=== PATIENT | male | born 1995 | race Caucasian/White ===

== ENCOUNTER 2023-02-23 09:51 | Outpatient (OUT) | payer OTHER, SELFPAY ==
--- NOTE | 2023-02-23 | VEIN_ITS ---
Patient: EARL LUND Exam Date: 02/23/2023 : 1995 Gender:M Ordering : DR GURDEEP AKINS M.D. Admission #: [id number] Family : Order #: [id number] CLICK HERE TO VIEW EXAM RADIOLOGY REPORT PROCEDURE: [facility] EST L[facility]D VEIN CENTER - OFFICE VISIT FOLLOW UP COMPARISON: [facility] COMP CONSULTATION, 11/24/2022. VC VENOUS REFLUX RICHARD LMT, 11/24/2022. PROGRESS NOTES: Patient returns for re-evaluation after wearing bilateral compression stockings for 3 months. Patient describes persistent symptoms as before, but with some relief while wearing compression stockings. Physical exam demonstrates persistent lower extremity edema and swelling. The patient expressed a desire to proceed with treatment of abnormally dilated and incompetent right and left great saphenous veins and branch saphenous varicosities. The patient was informed that treatment was a process and would require approximately 4 -5 procedures/sessions. VEIN/[facility] Facility EST LMTD IMPRESSION: 1. Abnormally dilated and incompetent great saphenous veins bilaterally with associated incompetent branch saphenous varicosities. 2. Persistent bilateral lower extremity symptoms. PLAN: 1. Endovenous laser ablation of right and left great saphenous veins. 2. Microfoam chemical ablation of incompetent branch saphenous varicosities. Nurse notes, history and physical were reviewed and confirmed, see attached forms. The nurse was present throughout the physical exam and consultation Dictated by: Pablo Flores M.D. on 02/23/2023 at 10:35 Approved by: Pablo Flores M.D. on 02/23/2023 at 10:40
== END 2023-02-23 09:52 | disposition home or self-care (01) ==
LOC: VC 09:51
PROVIDERS: PCP Radiology Diagnostic Radiology; Visit Provider Radiology Diagnostic Radiology
DX: I83.813 Varicose veins of bilateral lower extremities with pain (principal)
CPT/HCPCS: G0463

== ENCOUNTER 2023-03-23 10:23 | Outpatient (OUT) | payer OTHER, SELFPAY ==
--- NOTE | 2023-03-23 10:30 | VEIN_ITS ---
[address] [address] Patient Name: EARL LUND MRN: [id number] date: 1995 Sex: M Assigned Patient Location: Current Patient Location: Accession/Order Number: [id number] Exam Date: 03/23/2023 10:35 Report Date: 03/23/2023 11:50 At the request of: GURDEEP AKINS Procedure: VC Endovenous Ablation 1VeinRT EXAMINATION: VC Endovenous Ablation 1VeinRT HISTORY: Pain due to varicose veins of bilateral legs I83.813 The risks and benefits of the procedure had been previously discussed, and were rediscussed at length. Informed written consent was obtained. Adriano Michael RN and Felicity Fagan RDMS, RVT assisted. Time out procedure was performed. The right lower extremity was prepared and draped in the usual sterile fashion to allow knee flexion in the sterile field. Duplex ultrasound probe was draped in a sterile cover, sterile transmission gel was used. Venous mapping was performed with the areas of dilation and large tributaries marked. The total length was 62 cm from the entry 3 cm above the ankle joint to 3 cm below the Saphenofemoral junction. The diameter of the great saphenous vein ranged from 8.8 mm. A 30 gauge needle and 1% buffered lidocaine was used to anesthetize the entry site. A 4 mm incision was made with a scalpel and the saphenous vein was entered percutaneously under direct ultrasound guidance with a micropuncture set, a single stick was successful in gaining access. A micro-guide wire was inserted and the needle removed. A micro-set including a dilator was inserted over the microwire and the needle and dilator were removed. A guide wire was inserted through the micro-set and guided through the saphenous vein to the saphenofemoral junction. The dilator was removed and an introducer sheath was inserted over the wire until the end of the sheath entered the saphenofemoral junction. The dilator and wire were removed and the 600 micron fiber was introduced and placed and positioned so that it extended beyond the sheath and was 3 cm distal to the saphenofemoral or saphenopopliteal junction. Final position of the fiber was determined by ultrasound guidance and duplex imaging. Tumescent anesthetic was delivered by ultrasound guidance. 3 and 75 cc of fluid was delivered along the entire course of the saphenous vein. The solution consisted of 1000 cc of normal saline with 40 mL of 1% lidocaine and 20 mL of sodium bicarbonate. A final positioning check was made. The energy source was turned on by means of the foot pedal and the fiber and sheath were withdrawn. The total number of Joules delivered was 3183. The laser was active for 398 seconds under continuous pulse, average laser use of 8 J. Laser start time 11:33 AM, 03/23/2023. Laser stop time 11:43 AM, 03/23/2023. A duplex ultrasound revealed compressibility and flow at the saphenofemoral junction immediately after the procedure. Hemostasis at the access site was achieved. The skin incision of the saphenous vein was closed with a 4 x 4. A compression stocking was applied. Postop instructions were given. A follow up appointment was recommended and scheduled. The patient tolerated the procedure well. Electronically authenticated by: ERMIAS ARCHER Date: 03/23/2023 11:50
[2023-03-23] MEDS: 0.9 % SODIUM CHLORIDE 500 ML, LIDOCAINE HCL 20 ML, SODIUM BICARBONATE 10 MEQ INJ (11:12)
== END 2023-03-23 10:24 | disposition home or self-care (01) ==
LOC: VC 10:24
PROVIDERS: PCP Radiology Diagnostic Radiology; Visit Provider Radiology Diagnostic Radiology
DX: I83.813 Varicose veins of bilateral lower extremities with pain (principal)
CPT/HCPCS: 36478

== ENCOUNTER 2023-03-29 14:46 | Outpatient (OUT) | payer OTHER, SELFPAY ==
--- NOTE | 2023-03-29 | VEIN_ITS ---
Patient: EARL LUND Exam Date: 03/29/2023 : 1995 Gender:M Ordering : DR GURDEEP AKINS M.D. Admission #: [id number] Family : Order #: [id number] CLICK HERE TO VIEW EXAM RADIOLOGY REPORT PROCEDURE: VC EXT VENOUS RT LMTD COMPARISON: None. INDICATIONS: Phlebitis of superficial veins of rt lower extremity I80.01 TECHNIQUE: Lower extremity oneil scale and Duplex Doppler evaluation of the deep venous system from the inguinal ligament through the calf veins. FINDINGS: REGION: Right lower extremity. THROMBI: Negative for DVT. Heat induced thrombus in right GSV 3.2 cm from SFJ and extends to distal lower leg. COMPRESSIBILITY: Non-compressible segments. FLOW: Areas of no flow. OTHER: CONCLUSION: 1. Successful post ablation occlusion of right great saphenous vein. Dictated by: Pablo Flores M.D. on 03/30/2023 at 08:09 Approved by: Pablo Flores M.D. on 03/30/2023 at 08:10
--- NOTE | 2023-03-29 | VEIN_ITS ---
Patient: EARL LUND Exam Date: 03/29/2023 : 1995 Gender:M Ordering : DR GURDEEP AKINS M.D. Admission #: [id number] Family : Order #: [id number] CLICK HERE TO VIEW EXAM RADIOLOGY REPORT PROCEDURE: [facility] EST LMTD VEIN CENTER - OFFICE VISIT FOLLOW UP COMPARISON: [facility], 02/23/2023. PROGRESS NOTES: The patient reports improvement in leg symptoms. There has been interval reduction in varicosities. The patient has followed our recommendations to walk 20-30 minutes once or twice per day since the procedure. Physical exam demonstrates decrease in varicosities of the leg. Persistent varicosities are identified along the legs bilaterally. Review of the ultrasound performed the same day demonstrates occlusive thrombus extending throughout the treated vein(s), see separate report, consistent with a successful ablation. No thrombus extending into or beyond the saphenofemoral junction. The patient expressed a desire to proceed with treatment of remaining incompetent varicosities. The patient was informed that treatment was a process and would require several procedures/sessions. VEIN/[facility] EST TD IMPRESSION: 1. Successful ablation of the right great saphenous vein(s). 2. Persistent incompetent varicose veins and bilateral lower extremity symptoms. PLAN: Endovenous laser ablation of left great saphenous vein. Nurse notes, history and physical were reviewed and confirmed, see attached forms. The nurse was present throughout the physical exam and consultation Dictated by: Pablo Flores M.D. on 03/30/2023 at 08:10 Approved by: Pablo Flores M.D. on 03/30/2023 at 08:11
== END 2023-03-29 14:47 | disposition home or self-care (01) ==
LOC: VC 14:46
PROVIDERS: PCP Radiology Diagnostic Radiology; Visit Provider Radiology Diagnostic Radiology
DX: I80.01 Phlebitis and thrombophlebitis of superficial vessels of right lower extremity (principal)
CPT/HCPCS: 93971; G0463

== ENCOUNTER 2023-04-20 13:27 | Outpatient (OUT) | payer OTHER, SELFPAY ==
--- NOTE | 2023-04-20 13:28 | VEIN_ITS ---
[address] [address] Patient Name: EARL LUND MRN: [id number] date: 1995 Sex: M Assigned Patient Location: Current Patient Location: Accession/Order Number: [id number] Exam Date: 04/20/2023 13:28 Report Date: 04/20/2023 14:48 At the request of: GURDEEP AKINS Procedure: VC Endovenous Ablation 1VeinLT EXAMINATION: VC Endovenous Ablation 1VeinLT HISTORY: I83.813 Painful varicose veins of bilat lower extremities The risks and benefits of the procedure had been previously discussed, and were rediscussed at length. Informed written consent was obtained. Chelsi Owens RN and Felicity Fagan RDMS, RVT assisted. Time out procedure was performed. The left lower extremity was prepared and draped in the usual sterile fashion to allow knee flexion in the sterile field. Duplex ultrasound probe was draped in a sterile cover, sterile transmission gel was used. Venous mapping was performed with the areas of dilation and large tributaries marked. The total length was 64 cm from the entry 3 cm above the ankle to 3 cm below the Saphenofemoral junction. The diameter of the left great saphenous vein ranged from 6.8 mm. A 30 gauge needle and 1% buffered lidocaine was used to anesthetize the entry site. A 4 mm incision was made with a scalpel and the saphenous vein was entered percutaneously under direct ultrasound guidance with a micropuncture set, a single stick was successful in gaining access. A micro-guide wire was inserted and the needle removed. A micro-set including a dilator was inserted over the microwire and the needle and dilator were removed. A guide wire was inserted through the micro-set and guided through the saphenous vein to the saphenofemoral junction. The dilator was removed and an introducer sheath was inserted over the wire until the end of the sheath entered the saphenofemoral junction. The dilator and wire were removed and the 600 micron fiber was introduced and placed and positioned so that it extended beyond the sheath and was 3 cm distal to the saphenofemoral or saphenopopliteal junction. Final position of the fiber was determined by ultrasound guidance and duplex imaging. Tumescent anesthetic was delivered by ultrasound guidance. 350 cc of fluid was delivered along the entire course of the saphenous vein. The solution consisted of 1000 cc of normal saline with 40 mL of 1% lidocaine and 20 mL of sodium bicarbonate. A final positioning check was made. The energy source was turned on by means of the foot pedal and the fiber and sheath were withdrawn. The total number of Joules delivered was 3188. The laser was active for 399 seconds under continuous pulse, average laser use of 8 J. Laser start time 2:11 PM, 04/20/2023. Laser stop time 2:21 PM, 04/20/2023. A duplex ultrasound revealed compressibility and flow at the saphenofemoral junction immediately after the procedure. Hemostasis at the access site was achieved. The skin incision of the saphenous vein was closed with a 4 x 4. A compression stocking was applied. Postop instructions were given. A follow up appointment was recommended and scheduled. The patient tolerated the procedure well. Electronically authenticated by: ERMIAS ARCHER Date: 04/20/2023 14:48
[2023-04-20] MEDS: LIDOCAINE HCL 1% 100 MG/10 ML MDV INJ (13:52)
[2023-04-20] MEDS: 0.9 % SODIUM CHLORIDE 500 ML, LIDOCAINE HCL 20 ML, SODIUM BICARBONATE 10 MEQ INJ (13:54)
== END 2023-04-20 13:28 | disposition home or self-care (01) ==
LOC: VC 13:27
PROVIDERS: PCP Radiology Diagnostic Radiology; Visit Provider Radiology Diagnostic Radiology
DX: I83.813 Varicose veins of bilateral lower extremities with pain (principal)
CPT/HCPCS: 36478

== ENCOUNTER 2023-04-27 11:20 | Outpatient (OUT) | payer OTHER, SELFPAY ==
--- NOTE | 2023-04-27 11:28 | VEIN_ITS ---
Patient: EARL LUND Exam Date: 04/27/2023 : 1995 Gender:M Ordering : DR MAICOL LOPEZ M.D. Admission #: [id number] Family : Order #: [id number] CLICK HERE TO VIEW EXAM RADIOLOGY REPORT PROCEDURE: VC EXT VENOUS LT LIMITED COMPARISON: None. INDICATIONS: I80.02 Phlebitis of superficial veins of lt lower extremity TECHNIQUE: Lower extremity oneil scale and Duplex Doppler evaluation of the deep venous system from the inguinal ligament through the calf veins. FINDINGS: REGION: Left lower extremity. THROMBI: Negative for DVT. Heat induced thrombus visualized 4.2 cm from the SFJ. The heat induced thrombus extends from groin to distal calf. COMPRESSIBILITY: Non-compressible segments. FLOW: Absent flow corresponding to thrombus CONCLUSION: Post ablation occlusion left great saphenous vein with heat induced thrombus 4.2 cm from the saphenofemoral junction Dictated by: Maicol Lopez MD on 04/27/2023 at 11:48 Approved by: Maicol Lopez MD on 04/27/2023 at 11:49
--- NOTE | 2023-04-27 11:28 | VEIN_ITS ---
Patient: EARL LUND Exam Date: 04/27/2023 : 1995 Gender:M Ordering : DR MAICOL LOPEZ M.D. Admission #: [id number] Family : Order #: [id number] CLICK HERE TO VIEW EXAM RADIOLOGY REPORT PROCEDURE: FACILITY EST LMTD VEIN CENTER - OFFICE VISIT FOLLOW UP COMPARISON: FACILITY EST LMTD, 03/29/2023. FACILITY EST LMTD, 02/23/2023. PROGRESS NOTES: The patient reports no significant problems following intravenous laser ablation of the left great saphenous vein. The patient did not require oral analgesics for the patient has worn compression stockings. Physical exam demonstrates no areas of erythema or warmth to suggest cellulitis or thrombophlebitis. No active ulceration. The incision is closed. Extensive hemosiderin staining varicose reticular veins, left greater than right remain. Review of the ultrasound performed the same day demonstrates occlusive thrombus extending throughout the treated left great saphenous vein with heat induced thrombus 4.2 cm from the saphenofemoral junction. The patient expressed a desire to proceed with treatment of incompetent varicose veins with micro foam chemical ablation VEIN/ Facility EST LMTD IMPRESSION: 1. Successful ablation of the left great saphenous vein 2. Persistent bilateral incompetent varicose veins. PLAN: Micro foam chemical ablation left leg incompetent varicose veins Nurse notes, history and physical were reviewed and confirmed, see attached forms. The nurse was present throughout the physical exam and consultation Dictated by: Maicol Lopez MD on 04/27/2023 at 12:21 Approved by: Maicol Lopez MD on 04/27/2023 at 12:22
== END 2023-04-27 11:21 | disposition home or self-care (01) ==
LOC: VC 11:20
PROVIDERS: PCP Radiology Diagnostic Radiology; Visit Provider Radiology Diagnostic Radiology
DX: I80.02 Phlebitis and thrombophlebitis of superficial vessels of left lower extremity (principal)
CPT/HCPCS: 93971; G0463

== ENCOUNTER 2023-05-10 13:25 | Outpatient (OUT) | payer OTHER, SELFPAY ==
--- NOTE | 2023-05-10 | VEIN_ITS ---
[address] [address] Patient Name: EARL LUND MRN: [id number] date: 1995 Sex: M Assigned Patient Location: Current Patient Location: Accession/Order Number: [id number] Exam Date: 05/10/2023 13:34 Report Date: 05/10/2023 14:59 At the request of: GURDEEP AKINS Procedure: VC INJ Foam Sclerosant WUS DRY KILN WORKER PROCEDURE: VC INJ Foam Sclerosant WUS DRY KILN WORKER COMPARISON: None. HISTORY: Pain due to varicose veins of bilateral legs I83.813 Pre-operative Diagnosis: CEAP class C4a venous insufficiency with pain, tenderness, edema and incompetent great saphenous and varicose vein(s), chronic venous insufficiency right leg secondary to venous incompetence Post-operative Diagnosis: CEAP class C4a venous insufficiency with pain, tenderness, edema and incompetent great saphenous and varicose vein(s), chronic venous insufficiency right leg secondary to venous incompetence Procedure Performed: 1. Ultrasound-guided microfoam chemical ablation with Varithenaregistered 2. Intraoperative ultrasound guidance Anesthesia: None Indications for Procedure: 28-year-old male who presents with a 2 year history of liver centrally pain swelling with hemosiderin staining. The patient failed conservative medical therapy including medical compression stockings, exercise and analgesics. Prior procedures include . Multiple incompetent varicosities of the right leg. Duplex scan showed reflux and enlarged diameters up to 6 mm. The patient underwent informed consent including management options where the complications of infection, bleeding, pain, and skin injury were discussed. Particular attention was spent discussing thrombus extension and deep vein thrombosis as well as the possibility of pulmonary embolus and treatment with oral or injectable blood thinners. Procedure: The patient walked to the procedure room. All applicable staff donned appropriate apparel. A procedure timeout was performed to confirm correct patient, correct extremity, correct procedure, and correct room set-up including presence of all applicable supplies, devices, and drugs. A duplex ultrasound, performed by myself confirmed the location and incompetence of branch saphenous varicosities and their course was marked on the skin together with the dilated tributaries. The extent of treatment of the vein and the associated varicosities was determined through ultrasound mapping. The skin was prepped and then punctured with a butterfly needle and advanced under ultrasound guidance. The Varithenaregistered canister was activated and the canister was primed and purged as required in the instructions for use. Varithenaregistered was drawn into a sterile syringe. The following injections were made: 7 cc right distal medial lower leg, 4 mm varicose vein 8 cc distal right medial thigh, 6 mm varicose vein Varithenaregistered was slowly administered at 0.5-1.0 cc/second with close observation by ultrasound of its course in the vessels. Total volume utilized was: 15cc. Following administration of Varithenaregistered the leg was elevated and the patient was asked to repeatedly dorsiflex the ankle to limit flow of Varithenaregistered into perforating veins. Once appropriate spasm had been confirmed in the treated veins, the vascular catheter was removed from the leg and light pressure was applied over the puncture site for hemostasis. The common femoral and deep superficial veins were then evaluated for flow and compressibility prior to dressing placement. The lower extremity was kept elevated at 45 degrees above the horizontal and cording material was applied over the saphenous segments and tributaries to allow for eccentric compression over the target vessels including the targeted saphenous vein(s). A multilayer dressing was applied consisting of foam pads, coban and thigh-high 20-30 mm Hg compression elastic support hose were placed on the patient. The leg was lowered only after compression had been applied and the patient was immediately ambulatory. The patient ambulated 10 minutes under supervision and was without apparent concerns at time of release. Post-care instructions include advising patient to keep post-treatment bandages in place and dry for 48 hours, avoid extended periods of inactivity, avoid heavy exercise for one week, wear compression stockings on the treated leg continuously for two weeks, to walk daily for 10 minutes over the next month. The patient was instructed to take an anti-inflammatory medicine as needed and to follow up for color duplex scan of the Saphenous veins, the treated branch saphenous varicosities, the adjacent deep veins, and additional treatment within 7 days. PERSONNEL: Adriano Michael RN Electronically authenticated by: GURDEEP AKINS Date: 05/10/2023 14:59
== END 2023-05-10 13:26 | disposition home or self-care (01) ==
LOC: VC 13:25
PROVIDERS: PCP Radiology Diagnostic Radiology; Visit Provider Radiology Diagnostic Radiology
DX: I83.813 Varicose veins of bilateral lower extremities with pain (principal)
CPT/HCPCS: 36466

== ENCOUNTER 2023-05-17 13:16 | Outpatient (OUT) | payer OTHER, SELFPAY ==
--- NOTE | 2023-05-17 13:17 | VEIN_ITS ---
Patient Name EARL LUND MR# Age Sex Date Time [id number] 28 M 05/17/2023 13:17 At the Request Of DR GURDEEP AKINS M.D. RADIOLOGY REPORT PROCEDURE: [facility] EST LMTD VEIN CENTER - OFFICE VISIT FOLLOW UP COMPARISON: [facility] EST TD, 04/27/2023. PROGRESS NOTES: The patient reports improvement in leg symptoms. There has been interval reduction in varicosities. The patient has followed our recommendations to walk 20-30 minutes once or twice per day since the procedure. Physical exam demonstrates decrease in varicosities of the leg. Persistent varicosities are identified along the legs. Review of the ultrasound performed the same day demonstrates occlusive thrombus extending throughout the treated vein(s), see separate report, consistent with a successful ablation. No thrombus extending into or beyond the saphenofemoral junction. The patient expressed a desire to proceed with treatment of remaining incompetent varicosities. The patient was informed that treatment was a process and would require several procedures/sessions. VEIN/[facility] EST TD IMPRESSION: 1. Successful ablation of the treated branch saphenous vein(s). 2. Persistent incompetent varicose veins and lower extremity symptoms. PLAN: Microfoam chemical ablation of left leg incompetent branch saphenous varicosities. Nurse notes, history and physical were reviewed and confirmed, see attached forms. The nurse was present throughout the physical exam and consultation Dictated by: Pablo Flores M.D. on 05/17/2023 at 14:26 Approved by: Pablo Flores M.D. on 05/17/2023 at 14:28
--- NOTE | 2023-05-17 13:17 | VEIN_ITS ---
Patient Name EARL LUND MR# Age Sex Date Time [id number] 28 M 05/17/2023 13:28 At the Request Of DR GURDEEP AKINS M.D. RADIOLOGY REPORT PROCEDURE: VC EXT VENOUS RT LMTD COMPARISON: VC EXT VENOUS RT LMTD, 03/29/2023. INDICATIONS: Phlebitis of superficial veins of rt lower extremity I80.01 TECHNIQUE: Lower extremity oneil scale and Duplex Doppler evaluation of the deep venous system from the inguinal ligament through the calf veins. FINDINGS: REGION: Right lower extremity. THROMBI: Negative for DVT. All areas treated with Varithena/microfoam are seen with echogenic thrombus corresponding to the treatment. COMPRESSIBILITY: Non-compressible segments corresponding to thrombus FLOW: Areas of no flow corresponding to thrombus OTHER: Patent varicose vein visualized on proximal post/med lower leg and measures 4.9 mm with 2.6s of reflux. Patent varicose vein is visualized on the proximal anterior lower leg measures 4.6 mm with 2.1 s of reflux. CONCLUSION: 1. Successful ablation of treated right leg branch saphenous varicosities. Dictated by: Pablo Flores M.D. on 05/17/2023 at 13:50 Approved by: Pablo Flores M.D. on 05/17/2023 at 14:15
--- OUTSIDE RECORDS SUMMARY | 2023-06-27 15:11 | XMS_ITS | CCD ---
Author Name Unknown Address [address] [place] [address] Organization [facility] Care Team Providers Care Gravity Flow Irrigator Name Role Phone JOJO BAKER Unavailable Unavailable ADLESO HALEY Unavailable Unavailable Mdaeline Muñoz Unavailable Lanre LAWRENCE Primary Care Physician Lanre LAWRENCE Attending Unavailable Lanre LAWRENCE Attending Unavailable Lanre LAWRENCE Attending Unavailable PRABHU, DR THIBODEAUX LISTED Primary Care Unavaila ble MIKE, DR HERNANDEZ Vaz Attending Unavailable MIKE, DR HERNANDEZ Vaz Admitting Unavailable REINECK, DR LAM Karimi Attending Unavailabl e REINECK, DR LAM Karimi Consulting Unavailabl e REINECK, DR LAM Karimi Admitting Unavailabl e REQUEST, DR THIBODEAUX LISTED Primary Care Unavaila ble Allergies Allergy Classification Reported Allergen(s) Allergy Type Date of Onset Reaction(s) Facility (2 sources) Bee/Wasp/Ant venom; Translations: [Bee Stings] Allergy to substance Swelling (finding) [facility] (1 source) No Known Medication Allergies; Translations: [No Known Medication Allergies] Propensity to adverse reactions (disorder) [facility] Repository NEGATED: Highlighted row has been ruled out! (1 source) Drug allergy [facility] Medications Current Medications Medication Drug Class(es) Dates Sig (Normalized) Sig (Original) albuterol 0.83 mg/ml inhalation solution (3 sources) beta2-Adrenergic Agonist Start: 12-15-2021 take 2.5 mg by inhalation every six hours for wheezing albuterol 0.083% Inh Mabel 3 mL 2.5 mg, 3 mL, Inhalation, q6hr for wheezing, 100 EA, Refill(s) 2, [facility]/pharmacy #[id number], 180, cm, 08/04/21 13:28:00 EST, Height/Length Dosing, 182.9, kg, 08/04/21 13:28:00 EST, Weight Dosing Start Date: 12/15/21 Status: Ordered Start: 03-04-2017 take 2 puff(s) by in halation every four hours as needed Ventolin HFA 108 (90 Base) MCG/ACT 2 puffs as needed Inhalation every 4 hrs for 30 days Feb, Active Ventolin HFA Act casey Full Kit Nebulizer Set - (2 sources) Start: 03-14-2017 Full Kit Nebul izer Set - as directed Mar, Active Start: 03-04-2017 Full Kit Nebul izer Set - as directed Feb, Active furosemide 20 mg oral tablet (1 source) Loop Diuretic Start: 12-15-2021 take 1 tablet by mouth once daily as needed furosemide 20 mg Tab 20 mg = 1 tab(s), Oral, Daily, PRN leg swelling, # 30 tab(s), Refills(s) 2, Pharmacy: [facility]/pharmacy #[id number], 180, cm, 08/04/21 13:28:00 EST, Height/Length Dosing, 182.9, kg, 08/04/21 13:28:00 EST, Weight Dosing Start Date: 12/15/21 Status: Ordered montelukast 10 mg oral tablet (1 source) Leukotriene Receptor Antagonist Start: 03-04-2017 take 1 tablet by mouth every twenty-four hours Singulair 10 MG 1 tablet in the evening Orally Once a day for 30 day(s) Feb, Active Nebulizer (1 source) Nebulizer Active pantoprazole 40 mg delayed release oral tablet (1 source) Proton Pump Inhibitor Start: 08-04-2021 take 1 tablet by mouth twice daily Protonix 40 mg Tab-DR 40 mg = 1 tab(s), Oral, BID, # 60 tab(s), Refills(s) 11, Pharmacy: [facility]/pharmacy #[id number], 180, cm, 08/04/21 13:28:00 EST, Height/Length Dosing, 182.9, kg, 08/04/21 13:28:00 EST, Weight Dosing Start Date: 08/04/21 Status: Ordered predniSONE 20 mg oral tablet (1 source) Start: 03-04-2017 predniSONE 20 MG 1 tablet TID x 2 days, 1 tablet BID x 2 days, 1 tablet daily x 2 days, 1/2 tablet x 2 days, then stop Orally as directed for 8 days Feb, Active Completed/Discontinued Medications Medication Drug Class(es) Dates Sig (Normalized) Sig (Original) albuterol HFA 90 mcg/inh MDI (1 source) Start: 08-04-2021 take 1 dose by inhalation four times daily albuterol HFA 90 mcg/inh MDI 2 puff(s), Inhalation, QID, 1 EA, Refill(s) 11, [facility]/pharmacy #[id number], 180, cm, 08/04/21 13:28:00 EST, Height/Length Dosing, 182.9, kg, 08/04/21 13:28:00 EST, Weight Dosing Start Date: 08/04/21 Status: Ordered Breo Ellipta 200 mcg-25 mcg/inh inhalation powder (1 source) Start: 02-01-2022 take 1 dose by inhalation once daily Breo Ellipta 200 mcg-25 mcg/inh inhalation powder 1 puff(s), Inhalation, Daily, 1 EA, Refill(s) 11, [facility]/pharmacy #[id number], 180, cm, 02/01/22 11:53:00 EDT, Height/Length Dosing, 170.9, kg, 02/01/22 11:53:00 EDT, Weight Dosing Start Date: 02/01/22 Status: Ordered ipratropium bromide 0.2 mg/ml inhalation solution (1 source) Anticholinergic Start: 08-04-2021 take 100 doses by inhalation four times daily ipratropium 0.02% Inh Mabel 2.5 mL 500 microgram, 2.5 mL, Inhalation, QID Shortness of breath or wheezing, 100 EA, Refill(s) 11, [facility]/pharmacy #[id number], 180, cm, 08/04/21 13:28:00 EST, Height/Length Dosing, 182.9, kg, 08/04/21 13:28:00 EST, Weight Dosing Start Date: 08/04/21 Status: Ordered potassium chloride 10 meq extended release oral capsule (1 source) Start: 12-15-2021 take 1 capsule by mouth once daily as needed potassium chloride 10 mEq Cap-ER 10 mEq = 1 cap(s), Oral, Daily, PRN leg swelling, use when taking furosemide, # 30 cap(s), Refills(s) 5, Pharmacy: [facility]/pharmacy #[id number], 180, cm, 08/04/21 13:28:00 EST, Height/Length Dosing, 182.9, kg, 08/04/21 13:28:00 EST, Weight Dosing Start Date: 12/15/21 Status: Ordered Problems Active Problems Problem Classification Problem Date Documented Date Episodic/Chronic Asthma (3 sources) Exacerbation of asthma; Translations: [Unspecified asthma with (acute) exacerbation] Onset: 02-01-2022 Chronic Diabetes mellitus without complication (1 source) Type 2 diabetes mellitus without complications; Translations: [TYPE 2 DM WITHOUT COMPLICATIONS] Onset: 09-29-2022 Chronic Mycoses (1 source) Other urogenital candidiasis; Translations: [OTHER UROGENITAL CANDIDIASIS] Onset: 09-29-2022 Episodic Other circulatory disease (1 source) Elevated blood-pressure reading without diagnosis of hypertension 12-18-2019 Episodic Other diseases of veins and lymphatics (1 source) Venous insufficiency of leg 03-18-2020 Episodic Other male genital disorders (3 sources) Other specified disorders of penis; Translations: [OTHER SPECIFIED DISORDERS OF PENIS] Onset: 09-28-2022 Chronic Other nutritional; endocrine; and metabolic disorders (2 sources) Morbid obesity 03-18-2020 Chronic Other nutritional; endocrine; and metabolic disorders (1 source) Obesity 07-27-2018 Chronic Other nutritional; endocrine; and metabolic disorders (1 source) Obesity, unspecified; Translations: [OBESITY UNSPECIFIED] Onset: 09-29-2022 Chronic Other nutritional; endocrine; and metabolic disorders (1 source) Body mass index (BMI) 50.0-59.9, adult; Translations: [BODY MASS INDEX BMI 50.0-59.9 ADULT] Onset: 09-29-2022 Chronic Pneumonia (except that caused by tuberculosis or sexually transmitted disease) (1 source) Pneumonia 07-27-2018 Episodic Residual codes; unclassified (1 source) Tobacco user 12-18-2019 Episodic Spondylosis; intervertebral disc disorders; other back problems (1 source) Backache 07-27-2018 Episodic Sprains and strains (1 source) Strain of muscle, fascia and tendon of lower back, initial encounter; Translations: [Strain of muscle, fascia and tendon of lower back, initial encounter] Onset: 07-06-2018 Episodic Substance-related disorders (1 source) Nicotine dependence 02-03-2021 Chronic Varicose veins of lower extremity (2 sources) Varicose veins of lower extremity; Translations: [Varicose veins of left lower extremity with other complications] Onset: 02-01-2022 Episodic Past or Other Problems Problem Classification Problem Date Documented Da te Episodic/Chronic Immunizations and screening for infectious disease (1 source) Contact with and (suspected) exposure to other viral communicable diseases Onset: 06-24-2021 Resolved: 06-24-2021 Episodic Results Test Name Value Interpretation Reference Range Facil ity HERPES SIMPLEX VIRUS (HSV) C ULTUREon 10-01-2022 HSV Culture/Type Comment Normal [facility] Comment on above: Result Comment: Nega tive No Herpes simplex virus isolated. Performed By: #### H SVCUL #### [facility] [address] [place] [address] Dr. Gilberto Valle POINT OF CARE GLUCOSEon 09-08 Glucose [Mass/Vol] 276 mg/dL Critically high 74-106 T [facility] Comment on above: Performed By: #### P OCGLUC #### [facility] [address] [place] [address] Dr. Gilberto Valle Provider Letteron 06-27-2022 Provider Letter (Inserted Image. Karen ble to display) June 27, 2022 EARL SHAFFER [address] [place] [address] Dear Earl, We have been trying to reach you with no success. You should have received a letter previously stating Lanre Lawrence will no longer be at the [place] office location starting July 10. Please contact our office to get your appointment rescheduled at your earliest convenience. At this time, you don't have any appointments scheduled. Thank you for your prompt attention to this matter. Sincerely, [facility] [place] [address] [place] [place] [id number] [facility] Family Medicine Office/Clini c Noteon 02-01-2022 Family Medicine Office/Clinic Note Chief Complaint Pt in office for a 6 month follow up History of Present Illness Here for asthma check Does not believe he uses Breo, has not had it for a while. Albuterol he uses twice per day. Breathing has been OK recently. Uses albuterol before chest feels tight. Has not been on pantoprazole for a while now, and stomach is OK. Leg still swollen, uses the furosemide and the potassium. Veins are starting to pop out, the medicine helps but it always comes back. Review of Systems PHQ Score Initial Depression Screen Score: 0 ROS Respiratory: _using albuterol twice daily most days Cardiovascular: _leg swelling Gastrointestinal: _not having GERD, not using pantoprazole Physical Exam Vitals & Measurements T: 36.1 ?C(Temporal Artery) HR: 85(Peripheral) BP: 128/82 SpO2: 93% HT: 180.0 cm HT: 180 cm WT: 170.9 kg WT: 170.9 kg BMI: 52.75 PHYSICAL EXAM General: Well developed, well nourished, no apparent distress Head: Normocephalic, atraumatic Neck: No bruit, symmetric Lungs: Lungs clear to auscultation Cardio: Regular rate and rhythm with no murmur Pulses: Pulses present in all four extremities Extremities: edema, of left lower leg, varicose veins noted Mental Status: Alert and cooperative with appropriate mood and affect Assessment/Plan 1. Varicose veins of left leg with edema (I83.892: Varicose veins of left lower extremity with other complications) Assessment: this condition is chronic Evaluation:severe progression of symptoms Plan: Monitoring: observe for worsening symptoms, contact the office if needed _ Treatment: will refer to the following specialty: vascular _ Ordered: [facility] Internal Ambulatory Referral 2. Asthma (J45.909: Unspecified asthma, uncomplicated) Assessment: this condition is chronic Evaluation:uncontrolled (using albuterol BID, not on controller inhaler) Plan: Monitoring: observe for worsening symptoms, contact the office if needed _ Treatment: continue the following medication(s): albuterol PRN, will resend Rx for Breo to be used daily in order to prevent asthma exacerbation _ Orders: fluticasone-vilanterol, 1 puff(s), Inhalation, Daily, 1 EA, Refill(s) 11, [facility]/pharmacy #[id number], 180, cm, 02/01/22 11:53:00 EDT, Height/Length Dosing, 170.9, kg, 02/01/22 11:53:00 EDT, Weight Dosing Follow-up With When Contact Information Lanre MEADE In 6 months [address] [place] [address]- Additional Instructions: Patient Education Varicose Veins Problem List/Past Medical History Ongoing Asthma Back pain BMI 60.0-69.9, adult Chewing tobacco nicotine dependence Elevated BP without diagnosis of hypertension Morbid (severe) obesity due to excess calories Tobacco use disorder Varicose veins of left leg with edema Venous insufficiency of left leg Historical Obesity Pneumonia Procedure/Surgical History tonsillectomy, [place] tooth. Medications albuterol 0.083% Inh Mabel 3 mL, 2.5 mg= 3 mL, Inhalation, q6hr, PRN, 2 refills albuterol HFA 90 mcg/inh MDI, 2 puff(s), Inhalation, QID, 11 refills Breo Ellipta 200 mcg-25 mcg/inh inhalation powder, 1 puff(s), Inhalation, Daily, 11 refills furosemide 20 mg Tab, 20 mg= 1 tab(s), Oral, Daily, PRN, 2 refills ipratropium 0.02% Inh Mabel 2.5 mL, 500 mcg= 2.5 mL, Inhalation, QID, PRN, 11 refills potassium chloride 10 mEq Cap-ER, 10 mEq= 1 cap(s), Oral, Daily, PRN, 5 refills Protonix 40 mg Tab-DR, 40 mg= 1 tab(s), Oral, BID, 11 refills Allergies Bee Stings (Swelling) No Known Medication Allergies Social History Alcohol - Denies Alcohol Use, 11/02/2014 Current, 1-2 times per month, 10/16/2020 Current, 1-2 times per month, 03/15/2019 Employment/School Employed, 01/02/2019 Substance Abuse - Denies Substance Abuse, 11/02/2014 Tobacco - High Risk, 11/10/2017 Former smoker, quit more than 30 days ago Tobacco Use:. Smokeless tobacco user within last 30 days Smokeless Tobacco Use:. Cigarettes, Oral, .5 per day. 3 year(s). Started age 20.0 Years. Ready to change: No. Household tobacco concerns: Yes. Yes, 02/01/2022 Family History Diabetes mellitus type 1: Grandparent. Immunizations Vaccine Date Status Comments influenza virus vaccine, live, trivalent - Not Given Patient Refuses diphtheria/pertussis, acel/tetanus adult 01/10/2014 Given Normal [facility] Comment on above: Result Comment: Elec tronically Signed By: MELINDA REGAN, Lanre Watson.[email or web address]\Date and Time Signed: 02/01/22 12:47 EDT Patient Educationon 02-02-20 Patient Education Cardiovascular Varicose Veins Varicose veins are veins that have become enlarged, bulged, and twisted. They most often appear in the legs. What are the causes? This condition is caused by damage to the valves in the vein. These valves help blood return to your heart. When they are damaged and they stop working properly, blood may flow backward and back up in the veins near the skin, causing the veins to get larger and appear twisted. The condition can result from any issue that causes blood to back up, like , prolonged standing, or obesity. What increases the risk? This condition is more likely to develop in people who are: ? On their feet a lot. ? . ? Overweight. What are the signs or symptoms? Symptoms of this condition include: ? Bulging, twisted, and bluish veins. ? A feeling of heaviness. This may be worse at the end of the day. ? Leg pain. This may be worse at the end of the day. ? Swelling in the leg. ? Changes in skin color over the veins. How is this diagnosed? This condition may be diagnosed based on your symptoms, a physical exam, and an ultrasound test. How is this treated? Treatment for this condition may involve: ? Avoiding sitting or standing in one position for long periods of time. ? Wearing compression stockings. These stockings help to prevent blood clots and reduce swelling in the legs. ? Raising (elevating) the legs when resting. ? Losing weight. ? Exercising regularly. If you have persistent symptoms or want to improve the way your varicose veins look, you may choose to have a procedure to close the varicose veins off or to remove them. Treatments to close off the veins include: ? Sclerotherapy. In this treatment, a solution is injected into a vein to close it off. ? Laser treatment. In this treatment, the vein is heated with a laser to close it off. ? Radiofrequency vein ablation. In this treatment, an electrical current produced by radio waves is used to close off the vein. Treatments to remove the veins include: ? Phlebectomy. In this treatment, the veins are removed through small incisions made over the veins. ? Vein ligation and stripping. In this treatment, incisions are made over the veins. The veins are then removed after being tied (ligated) with stitches (sutures). Follow these instructions at home: Activity ? Walk as much as possible. Walking increases blood flow. This helps blood return to the heart and takes pressure off your veins. It also increases your cardiovascular strength. ? Follow your health care provider's instructions about exercising. ? Do not stand or sit in one position for a long period of time. ? Do not sit with your legs crossed. ? Rest with your legs raised during the day. General instructions ? Follow any diet instructions given to you by your health care provider. ? Wear compression stockings as directed by your health care provider. Do not wear other kinds of tight clothing around your legs, pelvis, or waist. ? Elevate your legs at night to above the level of your heart. ? If you get a cut in the skin over the varicose vein and the vein bleeds: ? Lie down with your leg raised. ? Apply firm pressure to the cut with a clean cloth until the bleeding stops. ? Place a bandage (dressing) on the cut. Contact a health care provider if: ? The skin around your varicose veins starts to break down. ? You have pain, redness, tenderness, or hard swelling over a vein. ? You are uncomfortable because of pain. ? You get a cut in the skin over a varicose vein and it will not stop bleeding. Summary ? Varicose veins are veins that have become enlarged, bulged, and twisted. They most often appear in the legs. ? This condition is caused by damage to the valves in the vein. These valves help blood return to your heart. ? Treatment for this condition includes frequent movements, wearing compression stockings, losing weight, and exercising regularly. In some cases, procedures are done to close off or remove the veins. ? Treatment for this condition may include wearing compression stockings, elevating the legs, losing weight, and engaging in regular activity. In some cases, procedures are done to close off or remove the veins. This information is not intended to replace advice given to you by your health care provider. Make sure you discuss any questions you have with your health care provider. Document Released: 04/05/2006 Document Revised: 08/22/2019 Document Reviewed: 07/19/2017 [employer] Patient Education ? 2019 [employer] Normal [facility] Physician Referralon 022 Physician Referral [id number] Normal [facility] Provider Letteron 12-29-2021 Provider Letter (Inserted Image. Karen ble to display) December 29, 2021 EARL SHAFFER [address] [facility] [place] [address] Dear Earl Shaffer, We have been trying to reach you with no success. You have an appointment with Tamela LIRIANO on 02/02/22 which will need to be rescheduled since she is no longer with [facility]. Please contact the office at the number listed below to get this appointment rescheduled at your earliest convenience. Thank you for your prompt attention to this matter. Sincerely, [place] [address] [facility] Ambulatory Visit Summaryon 0 08-04-2021 Ambulatory Visit Summary EARL SHAFFER :1995 Visit Date:08/04/2021 Ambulatory Visit Instructions Your Diagnosis BMI 50.0-59.9, adult Smokeless tobacco use Asthma Edema leg Chronic GERD Elevated BP without diagnosis of hypertension Your Care Team Attending Physician - Lanre MEADE Primary Care Physician - Jojo BAKER CNP This Is Your Medications List albuterol (albuterol 0.083% Inh Mabel 3 mL) albuterol (albuterol HFA 90 mcg/inh MDI) fluticasone-vilanterol (Breo Ellipta 200 mcg-25 mcg/inh inhalation powder) furosemide (furosemide 20 mg Tab) ipratropium (ipratropium 0.02% Inh Mabel 2.5 mL) pantoprazole (Protonix 40 mg Tab-DR) potassium chloride (potassium chloride 10 mEq Cap-ER) Procedures Performed tonsillectomy, [place] tooth. Discharge Vitals Heart Rate (Peripheral) 98 Blood Pressure 134/88 Height 180 cm Height 180.0 cm Weight 182.9 kg Weight 182.9 kg BMI 56.45 What to do next Scheduled Follow-Up Appointments Monday 10:00 AM EDT With: Tamela ROBERTSON CNP Where: [facility] Office/Clini c Noteon 08-04-2021 Family Medicine Office/Clinic Note Chief Complaint Chronic Condition f/u HPI Staff Pt here for 6 month Chronic Condition F/U CHEN (declines using anything) GERD (stable with medication) Asthma: Assessment of control: Frequency of daytime attacks: 1 Frequency of nighttime attacks: 0 Current symptoms: Chest tightness: no Cough: no Edema, lower extremity: yesLt Exercise limitation: no Fever: no Nocturnal awakening: no Orthopnea: no Sputum production: yes Wheezing: yes Cigarette smoker/exposure: not addressed Triggers: unsure Ever hospitalized for asthma: no Concerns: pt advised insurance no longer covers Ventolin - Lt lower non-pitting extremity swelling Last labs: unsure History of Present Illness Sleep apnea: didn't;t get around to having it done, he works third shift. Weight has been an issue for him for a long time. On diets as a kid and it never helped. He was on adipex in the past, lost 50lbs the first try then it did not work after that. Asthma: doing well but insurance will no longer cover Ventolin. He uses it at a variable rate. Uses more when it is cold out. Needs Breo refill, has been out for a couple weeks. No longer smokes, quit after it almost killed him. pantoprazole helping with Acid reflux. Lower legs, swell, and turning red, and veins sticking out. Review of Systems PHQ Score Initial Depression Screen Score: 0 ROS Constitutional: doing well Respiratory: out of breo Cardiovascular: Lower legs are swelling, this has been progressive Gastrointestinal: Pantoprazole is effective Physical Exam Vitals & Measurements HR: 98(Peripheral) BP: 134/88 SpO2: 92% HT: 180 cm HT: 180.0 cm WT: 182.9 kg WT: 182.9 kg BMI: 56.45 PHYSICAL EXAM General: Well developed, well nourished, no apparent distress Head: Normocephalic, atraumatic Neck: No bruit, symmetric Lungs: wheezing noted, mild Cardio: Regular rate and rhythm with no murmur Pulses: Pulses present in all four extremities Extremities: No edema Mental Status: Alert and cooperative with appropriate mood and affect Assessment/Plan [facility] amaury 1. Asthma (J45.909: Unspecified asthma, uncomplicated) Condition is stable and chronic. Evaluated today. He does have a bit of a wheeze. He has been out of his Breo inhaler for a couple weeks. I did send in refills for all of his breathing medications. 2. BMI 50.0-59.9, adult (Z68.43: Body mass index [BMI] 50.0-59.9, adult) Discussed the excess weight, talked about benefits of bariatric surgery and how not all stomach secreted the same. Some stomachs are more efficient. He has been doing different diets a different times since he was a child. Understandably surgery is not something that he would like to do but I did ask him to remain open to it if his efforts at weight loss are not effective over the upcoming years. Otherwise recommended a goal of losing 5 to 7 pounds each 6-month visit that he has at this office. Ordered: Body Mass Index (BMI) documented 3008F Current smokeless tobacco user 1035F Depression Screening Negative 3352F Influenza immunization administered or previously received 4274F Most recent diastolic blood pressure 80-89 mm Hg 3079F Systolic BP 130-139 mm Hg (Most Recent) 3075F Tobacco use cessation intervention, counseling 4000F 3. Smokeless tobacco use (Z72.0: Tobacco use) Ordered: Body Mass Index (BMI) documented 3008F Current smokeless tobacco user 1035F Depression Screening Negative 3352F Influenza immunization administered or previously received 4274F Most recent diastolic blood pressure 80-89 mm Hg 3079F Systolic BP 130-139 mm Hg (Most Recent) 3075F Tobacco use cessation intervention, counseling 4000F 4. Edema leg (R60.0: Localized edema) Leg edema is evaluated, progressive. Complications include morbid obesity. Will treat with as needed furosemide 20 mg to be taken with a 10meq potassium chloride dose. Ordered: furosemide, 20 mg = 1 tab(s), Oral, Daily, PRN leg swelling, # 30 tab(s), Refills(s) 2, Pharmacy: [facility]/pharmacy #[id number], 180, cm, 08/04/21 13:28:00 EST, Height/Length Dosing, 182.9, kg, 08/04/21 13:28:00 EST, Weight Dosing 5. Chronic GERD (K21.9: Gastro-esophageal reflux disease without esophagitis) Assessed, stable complications include obesity. Will refill his Rx. 6. Elevated BP without diagnosis of hypertension (R03.0: Elevated blood-pressure reading, without diagnosis of hypertension) Assessed, no HTN today. Orders: albuterol, 2 puff(s), Inhalation, QID, 1 EA, Refill(s) 11, [id number], 180, cm, 08/04/21 13:28:00 EST, Height/Length Dosing, 182.9, kg, 08/04/21 13:28:00 EST, Weight Dosing albuterol, 2.5 mg, 3 mL, Inhalation, q6hr for wheezing, 100 EA, Refill(s) 2, [id number], 180, cm, 08/04/21 13:28:00 EST, Height/Length Dosing, 182.9, kg, 08/04/21 13:28:00 EST, Weight Dosing fluticasone-vilanterol, 1 puff(s), Inhalation, Daily, 1 EA, Refill(s) 11, [id number], 180, cm, 08/04/21 13:28:00 EST, Height/Length Dosing, 1 (more content not included)... Normal [facility] Comment on above: Result Comment: Elec tronically Signed By: MELINDA REGAN, Lanre Vaz\.br\Date and Time Signed: 08/04/21 14:01 EST COVID Quick Testingon 2020 Result Negative [facility] [employer] Other Vital Signs Date Time Vital Sign Value Performing Clinician Mckennai shimon 02-01-2022 11:49-0400 Body temperature 96.98 [degF] Lanre LAWRENCE [facility] 02-01-2022 11:49-0400 Diastolic blood pressure 82 mm[Hg] Lanre LAWRENCE [facility] 02-01-2022 11:49-0400 Heart rate 85 /min Lanrebob LAWRENCE [facility] [place] 02-01-2022 11:49-0400 SaO2% (BldA) [Mass fraction] 93 % Lanre LAWRENCE [facility] 02-01-2022 11:49-0400 Systolic blood pressure 128 mm[Hg] Lanre LAWRENCE [facility] Encounters Encounter Date Encounter Type Care Provider Facility Start: 11-24-[address] MORELIA PELLETIER Facility:[facility] Start: 09-28-2022 End: 09-28-[address] LAM XIAO Facility: Start: 08-05-2022 [facility]ulatory [facility] Start: 02-01-2022 End: 02-02-2022 ambulatory [facility] Start: 02-01-2022 End: 02-01-2022 Patient encounter procedure Lanre LAWRENCE [facility] Start: 01-03-2022 ambulatory Lanre LAWRENCE Facility:[facility] Start: 08-04-2021 End: 08-05-2021 ambulatory Lanre LAWRENCE Facility: [facility] Start: 06-24-2021 End: 06-24-2021 ambulatory Madeline Muñoz Other [email or web address] Other Start: 06-24-2021 Office outpatient visit 5 minutes Madeline Muñoz [facility] [place] Start: 07-06-2018 End: 07-06-2018 Emergency department patient visit [facility] Procedures Date Procedure Procedure Detail Performing Clinician Structure of wisdom tooth (body structure) Lanre LAWRENCE Tonsillectomy Lanre LAWRENCE Immunizations Immunization Date Immunization Notes Care Provider Perla [email or web address] 01-10-2014 tetanus toxoid, reduced diphtheria toxoid, and acellular pertussis vaccine, adsorbed Lanre LAWRENCE [facility] NEGATED: Highlighted row has not occurred!06-19-2019 influenza virus vaccine, live, attenuated, for intranasal use Lanre LAWRENCE [facility] Payers Date Payer Category Payer Unknown [id number] 1995 Unknown [id number] 2.16.84 [id number] 1995 Unknown [id number] 2.16.8 [id number] 1997 Unknown [id number] 2.16.8 [id number] 1997 Unknown [id number] 2.16.8 [id number] 1997 Unknown [id number] 2.16.8 [id number] 1997 Unknown [id number] 2.16.8 [id number] 1997 Unknown [id number] 2.16.84 [id number] 1997 Unknown [id number] 2.16.84 [id number] 1957 Unknown [id number] Social History Date Type Detail Facility Unknown if ever smoked [email or web address] Other Sex Assigned At [email or web address] Other Start: 02-01-2022 Tobacco smoking status Ex-smoker (finding) [facility] Tobacco smoking status Smokeless tobacco user within last 30 days [facility] Functional Status Date Assessment Result Facility 02-01-2022 Functional Status N/A [facility] Discharge instructions 02-01-2022 Note Date & Type Note Facility 02-01-2022 Hospital Discharg e instructions Patient Education 02/01/2022 12:47:02 Varicose Veins Varicose Veins Varicose veins are veins that have become enlarged, bulged, and twisted. They most often appear in the legs. What are the causes? This condition is caused by damage to the valves in the vein. These valves help blood return to your heart. When they are damaged and they stop working properly, blood may flow backward and back up in the veins near the skin, causing the veins to get larger and appear twisted. The condition can result from any issue that causes blood to back up, like , prolonged standing, or obesity. What increases the risk? This condition is more likely to develop in people who are: On their feet a lot. . Overweight. What are the signs or symptoms? Symptoms of this condition include: Bulging, twisted, and bluish veins. A feeling of heaviness. This may be worse at the end of the day. Leg pain. This may be worse at the end of the day. Swelling in the leg. Changes in skin color over the veins. How is this diagnosed? This condition may be diagnosed based on your symptoms, a physical exam, and an ultrasound test. How is this treated? Treatment for this condition may involve: Avoiding sitting or standing in one position for long periods of time. Wearing compression stockings. These stockings help to prevent blood clots and reduce swelling in the legs. Raising (elevating) the legs when resting. Losing weight. Exercising regularly. If you have persistent symptoms or want to improve the way your varicose veins look, you may choose to have a procedure to close the varicose veins off or to remove them. Treatments to close off the veins include: Sclerotherapy. In this treatment, a solution is injected into a vein to close it off. Laser treatment. In this treatment, the vein is heated with a laser to close it off. Radiofrequency vein ablation. In this treatment, an electrical current produced by radio waves is used to close off the vein. Treatments to remove the veins include: Phlebectomy. In this treatment, the veins are removed through small incisions made over the veins. Vein ligation and stripping. In this treatment, incisions are made over the veins. The veins are then removed after being tied (ligated) with stitches (sutures). Follow these instructions at home: Activity Walk as much as possible. Walking increases blood flow. This helps blood return to the heart and takes pressure off your veins. It also increases your cardiovascular strength. Follow your health care provider's instructions about exercising. Do not stand or sit in one position for a long period of time. Do not sit with your legs crossed. Rest with your legs raised during the day. General instructions Follow any diet instructions given to you by your health care provider. Wear compression stockings as directed by your health care provider. Do not wear other kinds of tight clothing around your legs, pelvis, or waist. Elevate your legs at night to above the level of your heart. If you get a cut in the skin over the varicose vein and the vein bleeds: ?Lie down with your leg raised. ?Apply firm pressure to the cut with a clean cloth until the bleeding stops. ?Place a bandage (dressing) on the cut. Contact a health care provider if: The skin around your varicose veins starts to break down. You have pain, redness, tenderness, or hard swelling over a vein. You are uncomfortable because of pain. You get a cut in the skin over a varicose vein and it will not stop bleeding. Summary Varicose veins are veins that have become enlarged, bulged, and twisted. They most often appear in the legs. This condition is caused by damage to the valves in the vein. These valves help blood return to your heart. Treatment for this condition includes frequent movements, wearing compression stockings, losing weight, and exercising regularly. In some cases, procedures are done to close off or remove the veins. Treatment for this condition may include wearing compression stockings, elevating the legs, losing weight, and engaging in regular activity. In some cases, procedures are done to close off or remove the veins. This information is not intended to replace advice given to you by your health care provider. Make sure you discuss any questions you have with your health care provider. Document Released: 04/05/2006 Document Revised: 08/22/2019 Document Reviewed: 07/19/2017 [employer] Patient Education 2020 [employer] Follow Up Care 08/04/2021 13:56:06 With:Lanre MEADE Address: [address] [place], [place] [address] [address]- When:Within 6 Month(s) [facility] 06-24-2021 Note Date & Type Note Facility 06-24-2021 Evaluation note Encounter Date Diagnosis Assessment Notes Jun, Contact with and (suspected) exposure to other viral communicable diseases (ICD-10 - Z20.828) Jun, Other Additional time spent conducting pre-visit phone call, screening for symptoms, instructions on social distancing, application and removal of PPE, and cleaning of examination room, equipment and supplies was preformed. Patient education given for testing methodology and results. Patient care instructions given in writting by [facility] Care At Home document. [email or web address] Other Evaluation + Plan note Note Date & Type Note Facility Evaluation + Plan note Future Appointments Appointment Date:08/05/2022 11:00:00 AM Scheduled Provider:Lanre MEADE Location:[facility] Appointment Type:[facility] History general Narrative - Reported Note Date & Type Note Facility History general Narrative - Reported Type Medical History ashma Surgical History pnuemonia Hospitalization History see above [email or web address] Other Hospital course Narrative Note Date & Type Note Facility Hospital course Narrative No data available for this section [facility] Progress note Note Date & Type Note Facility Progress note No data available for this section [facility] Summary Purpose Family History No Family History Records FoundNo Family History Records FoundNo Family History Records Found Advance Directives No Advanced Directives Records FoundNo Advanced Directives Records FoundNo Advanced Directives Records Found Additional Source Comments (unrecognized sect ion and content) No Status Records FoundNo Status Records FoundNo Status Records Found INFORMATION SOURCE (unrecogn ized section and content) DATE CREATED AUTHOR 07/08/2018 Griselda almanzar DATE CREATED AUTHOR AUTHOR'S ORGANIZ ATION 07/01/2022 Leo Pierre [facility] DATE CREATED AUTHOR AUTHOR'S ORGANIZ ATION 11/11/2022 [facility] REASON FOR VISIT (unrecogniz ed section and content) #24 COVID EXPOSURE TO SISTER , ASYMPTOMATIC, COVID NURSE VISIT Care Team (unrecognized sect ion and content) Personnel Name: Lanre MEADE Address: [address] [place] [address] FOR RECORDS PERTAINING TO PATIENTS WHO ARE OR HAVE BEEN ENROLLED IN A CHEMICAL DEPENDENCY/SUBSTANCEABUSE PROGRAM, SOME INFORMATION MAY BE OMITTED. This clinical summary was aggregated from multiple sources. Caution should be exercised in using it in the provision of clinical care. This summary normalizes information from multiple sources, and as a consequence, information in this document may materially change the coding, format and clinical context of patient data. In addition, data may be omitted in some cases. CLINICAL DECISIONS SHOULD BE BASED ON THE PRIMARY CLINICAL RECORDS. [facility]. provides no warranty or guarantee of the accuracy or completeness of information in this document.
== END 2023-05-17 13:17 | disposition home or self-care (01) ==
LOC: VC 13:16
PROVIDERS: PCP Radiology Diagnostic Radiology; Visit Provider Radiology Diagnostic Radiology
DX: I80.01 Phlebitis and thrombophlebitis of superficial vessels of right lower extremity (principal)
CPT/HCPCS: 93971; G0463

== ENCOUNTER 2023-06-07 12:51 | Outpatient (OUT) | payer OTHER, SELFPAY ==
--- NOTE | 2023-06-07 12:54 | VEIN_ITS ---
[address] [address] Patient Name: EARL LUND MRN: [id number] date: 1995 Sex: M Assigned Patient Location: Current Patient Location: Accession/Order Number: [id number] Exam Date: 06/07/2023 12:55 Report Date: 06/07/2023 13:59 At the request of: GURDEEP AKINS Procedure: VC INJ Foam Sclerosant WUS MANAGER METAL PROCEDURE: VC INJ Foam Sclerosant WUS MANAGER METAL HISTORY: I83.813 Painful varicose veins of bilat lower extremities Pre-operative Diagnosis: CEAP class C4a venous insufficiency with pain, tenderness, edema and incompetent branch saphenous vein(s), chronic venous insufficiency left leg secondary to venous incompetence Post-operative Diagnosis: CEAP class C4a venous insufficiency with pain, tenderness, edema and incompetent branch saphenous vein(s), chronic venous insufficiency left leg secondary to venous incompetence Procedure Performed: 1. Ultrasound-guided microfoam chemical ablation with Varithenaregistered 2. Intraoperative ultrasound guidance Physician: Pablo Flores M.D. Anesthesia: None Indications for Procedure: 28 year old male. Symptoms including lower extremity swelling, bulging dilated veins, leg cramping, skin changes for many years despite conservative medical therapy including medical compression stockings, exercise and analgesics. Prior procedures include endovenous laser ablation and microfoam chemical ablation. Multiple incompetent varicosities of the left leg. Duplex scan showed reflux and enlarged diameters up to 5 mm. The patient underwent informed consent including management options where the complications of infection, bleeding, pain, and skin injury were discussed. Particular attention was spent discussing thrombus extension and deep vein thrombosis as well as the possibility of pulmonary embolus and treatment with oral or injectable blood thinners. Procedure: The patient walked to the procedure room. All applicable staff donned appropriate apparel. A procedure timeout was performed to confirm correct patient, correct extremity, correct procedure, and correct room set-up including presence of all applicable supplies, devices, and drugs. A duplex ultrasound, performed by myself confirmed the location and incompetence of branch saphenous varicosities and their course was marked on the skin together with the dilated tributaries. The extent of treatment of the vein and the associated varicosities was determined through ultrasound mapping. The skin was prepped and then punctured with a butterfly needle and advanced under ultrasound guidance. The Varithenaregistered canister was activated and the canister was primed and purged as required in the instructions for use. Varithenaregistered was drawn into a sterile syringe. Varithenaregistered was slowly administered at 0.5-1.0 cc/second with close observation by ultrasound of its course in the vessels. Total volume utilized was: 15 mL (3 mL into a 4 mm varicosity of the distal anterior lower leg; 12 mL into a 5 mm varicosity within mid anterior lower leg). Following administration of Varithenaregistered the leg was elevated and the patient was asked to repeatedly dorsiflex the ankle to limit flow of Varithenaregistered into perforating veins. Once appropriate spasm had been confirmed in the treated veins, the vascular catheter was removed from the leg and light pressure was applied over the puncture site for hemostasis. The common femoral and deep superficial veins were then evaluated for flow and compressibility prior to dressing placement. The lower extremity was kept elevated at 45 degrees above the horizontal and cording material was applied over the saphenous segments and tributaries to allow for eccentric compression over the target vessels including the targeted saphenous vein(s). A multilayer dressing was applied consisting of foam pads, coban and thigh-high 20-30 mm Hg compression elastic support hose were placed on the patient. The leg was lowered only after compression had been applied and the patient was immediately ambulatory. The patient ambulated 10 minutes under supervision and was without apparent concerns at time of release. Post-care instructions include advising patient to keep post-treatment bandages in place and dry for 48 hours, avoid extended periods of inactivity, avoid heavy exercise for one week, wear compression stockings on the treated leg continuously for two weeks, to walk daily for 10 minutes over the next month. The patient was instructed to take an anti-inflammatory medicine as needed and to follow up for color duplex scan of the Saphenous veins, the treated branch saphenous varicosities, the adjacent deep veins, and additional treatment within 7 days. PERSONNEL: Adriano Michael RN Electronically authenticated by: PABLO FLORES Date: 06/07/2023 13:59
== END 2023-06-07 12:52 | disposition home or self-care (01) ==
LOC: VC 12:51
PROVIDERS: PCP Radiology Diagnostic Radiology; Visit Provider Radiology Diagnostic Radiology
DX: I83.813 Varicose veins of bilateral lower extremities with pain (principal)
CPT/HCPCS: 36466

== ENCOUNTER 2023-06-14 10:23 | Outpatient (OUT) | payer OTHER, SELFPAY ==
--- NOTE | 2023-06-14 10:24 | VEIN_ITS ---
Patient Name: EARL LUND MR#: [id number] : 1995 Exam Date: 06/14/2023 Ordering Doctor: DR MAICOL LOPEZ M.D. RADIOLOGY REPORT PROCEDURE: VC EXT VENOUS LT LIMITED COMPARISON: VC EXT VENOUS LT LIMITED, 04/27/2023. INDICATIONS: I80.02 Phlebitis of superficial veins of lt lower extremity TECHNIQUE: Lower extremity oneil scale and Duplex Doppler evaluation of the deep venous system from the inguinal ligament through the calf veins. FINDINGS: REGION: Left lower extremity. THROMBI: Negative for DVT. Varithena induced thrombus visualized at mid/med calf and mid/med thigh. COMPRESSIBILITY: Non-compressible segments corresponding to thrombus FLOW: Areas of absent flow corresponding to thrombus OTHER: Patent varicose vein medial knee 6.0mm with 1.0s reflux. Patent varicose vein mid/med calf 3.9mm with 0.5s reflux. CONCLUSION: Post ablation occlusion of treated left leg incompetent varicose veins with residual patent incompetent varicose veins measuring up to 6 mm in diameter Dictated by: Maicol Lopez MD on 06/14/2023 at 11:14 Approved by: Maicol Lopez MD on 06/14/2023 at 11:15
--- NOTE | 2023-06-14 10:24 | VEIN_ITS ---
Patient Name: EARL LUND MR#: [id number] : 1995 Exam Date: 06/14/2023 Ordering Doctor: DR MAICOL LOPEZ M.D. RADIOLOGY REPORT PROCEDURE: [facility] - OFFICE VISIT FOLLOW UP COMPARISON: [facility] EST [facility], 05/17/2023. [facility] EST [facility], 04/27/2023. PROGRESS NOTES: The patient reports no significant problems of the left leg following micro foam chemical ablation. The patient has worn his compression stockings. The patient has followed our recommendations to walk 20-30 minutes once or twice per day since the procedure. Physical exam demonstrates multiple thrombosed varicose veins in the left leg. Significant reduction in swelling and skin thickening from his initial presenting exam. No areas of erythema or warmth. No active ulceration. No evidence of cellulitis or thrombophlebitis. Review of the ultrasound performed the same day demonstrates occlusive thrombus extending throughout the treated left leg incompetent varicose veins. Patent incompetent varicose veins measuring up to 6 mm remain. The patient expressed a desire to proceed with treatment of incompetent varicose veins. VEIN/[facility] EST LMT[facility] IMPRESSION: 1. Successful ablation of left leg incompetent varicose veins 2. Persistent bilateral incompetent varicose vein. PLAN: Micro foam chemical ablation right leg incompetent varicose veins Nurse notes, history and physical were reviewed and confirmed, see attached forms. The nurse was present throughout the physical exam and consultation Dictated by: Maicol Lopez MD on 06/14/2023 at 11:15 Approved by: Maicol Lopez MD on 06/14/2023 at 11:16
== END 2023-06-14 10:24 | disposition home or self-care (01) ==
LOC: VC 10:23
PROVIDERS: PCP Radiology Diagnostic Radiology; Visit Provider Radiology Diagnostic Radiology
DX: I80.02 Phlebitis and thrombophlebitis of superficial vessels of left lower extremity (principal)
CPT/HCPCS: 93971; G0463

== ENCOUNTER 2023-06-21 10:21 | Outpatient (OUT) | payer OTHER, SELFPAY ==
--- NOTE | 2023-06-21 10:22 | VEIN_ITS ---
[address] [address] Patient Name: EARL LUND MRN: [id number] date: 1995 Sex: M Assigned Patient Location: Current Patient Location: Accession/Order Number: [id number] Exam Date: 06/21/2023 10:23 Report Date: 06/21/2023 11:14 At the request of: GURDEEP AKINS Procedure: VC INJ Foam Sclerosant WUS DIRECTOR OF ONCOLOGY PROCEDURE: VC INJ Foam Sclerosant WUS DIRECTOR OF ONCOLOGY HISTORY: I83.813 Bilateral painful varicose veins Pre-operative Diagnosis: CEAP class C4a venous insufficiency with pain, tenderness, edema and incompetent branch saphenous vein(s), chronic venous insufficiency right leg secondary to venous incompetence Post-operative Diagnosis: CEAP class C4a venous insufficiency with pain, tenderness, edema and incompetent branch saphenous vein(s), chronic venous insufficiency right leg secondary to venous incompetence Procedure Performed: 1. Ultrasound-guided microfoam chemical ablation with Varithenaregistered 2. Intraoperative ultrasound guidance Physician: Pablo Flores M.D. Anesthesia: None Indications for Procedure: 28 year old male. Symptoms including lower extremity pain, swelling, dilated bulging veins, cramping for many years despite conservative medical therapy including medical compression stockings, exercise and analgesics. Prior procedures include endovenous laser ablation and microfoam chemical ablation. Multiple incompetent varicosities of the right leg. Duplex scan showed reflux and enlarged diameters up to 4 mm. The patient underwent informed consent including management options where the complications of infection, bleeding, pain, and skin injury were discussed. Particular attention was spent discussing thrombus extension and deep vein thrombosis as well as the possibility of pulmonary embolus and treatment with oral or injectable blood thinners. Procedure: The patient walked to the procedure room. All applicable staff donned appropriate apparel. A procedure timeout was performed to confirm correct patient, correct extremity, correct procedure, and correct room set-up including presence of all applicable supplies, devices, and drugs. A duplex ultrasound, performed by myself confirmed the location and incompetence of branch saphenous varicosities and their course was marked on the skin together with the dilated tributaries. The extent of treatment of the vein and the associated varicosities was determined through ultrasound mapping. The skin was prepped and then punctured with a butterfly needle and advanced under ultrasound guidance. The Varithenaregistered canister was activated and the canister was primed and purged as required in the instructions for use. Varithenaregistered was drawn into a sterile syringe. Varithenaregistered was slowly administered at 0.5-1.0 cc/second with close observation by ultrasound of its course in the vessels. Total volume utilized was: 15 mL (5 mL into a 3 mm varicosity of the mid anterior lower right leg; 10 mL into a 4 mm varicosity proximal lateral lower leg). Following administration of Varithenaregistered the leg was elevated and the patient was asked to repeatedly dorsiflex the ankle to limit flow of Varithenaregistered into perforating veins. Once appropriate spasm had been confirmed in the treated veins, the vascular catheter was removed from the leg and light pressure was applied over the puncture site for hemostasis. The common femoral and deep superficial veins were then evaluated for flow and compressibility prior to dressing placement. The lower extremity was kept elevated at 45 degrees above the horizontal and cording material was applied over the saphenous segments and tributaries to allow for eccentric compression over the target vessels including the targeted saphenous vein(s). A multilayer dressing was applied consisting of foam pads, coban and thigh-high 20-30 mm Hg compression elastic support hose were placed on the patient. The leg was lowered only after compression had been applied and the patient was immediately ambulatory. The patient ambulated 10 minutes under supervision and was without apparent concerns at time of release. Post-care instructions include advising patient to keep post-treatment bandages in place and dry for 48 hours, avoid extended periods of inactivity, avoid heavy exercise for one week, wear compression stockings on the treated leg continuously for two weeks, to walk daily for 10 minutes over the next month. The patient was instructed to take an anti-inflammatory medicine as needed and to follow up for color duplex scan of the Saphenous veins, the treated branch saphenous varicosities, the adjacent deep veins, and additional treatment within 7 days. PERSONNEL: Adriano Michael RN Electronically authenticated by: PABLO FLORES Date: 06/21/2023 11:14
== END 2023-06-21 10:22 | disposition home or self-care (01) ==
LOC: VC 10:21
PROVIDERS: PCP Radiology Diagnostic Radiology; Visit Provider Radiology Diagnostic Radiology
DX: I83.813 Varicose veins of bilateral lower extremities with pain (principal)
CPT/HCPCS: 36466

== ENCOUNTER 2023-06-29 10:12 | Outpatient (OUT) | payer OTHER, SELFPAY ==
--- NOTE | 2023-06-29 10:13 | VEIN_ITS ---
Patient Name: EARL LUND MR#: [id number] : 1995 Exam Date: 06/29/2023 Ordering Doctor: DR GURDEEP AKINS M.D. RADIOLOGY REPORT PROCEDURE: [facility] EST LMTD VEIN [facility]ENTER - OFFICE VISIT FOLLOW UP COMPARISON: [facility], 06/14/2023. PROGRESS NOTES: The patient reports improvement in leg symptoms. There has been interval reduction in varicosities. The patient has followed our recommendations to walk 20-30 minutes once or twice per day since the procedure. Physical exam demonstrates decrease in varicosities of the leg and no evidence of infection. A few persistent varicosities are identified along the legs. Review of the ultrasound performed the same day demonstrates occlusive thrombus extending throughout the treated vein(s), see separate report, consistent with a successful ablation. No thrombus extending into or beyond the saphenofemoral junction. The patient expressed a desire to proceed with treatment of remaining dilated varicosities. The patient was informed that treatment was a process and would require 1-2 procedures/sessions. [facility]: 1. Successful ablation of the right leg incompetent branch saphenous vein(s). 2. Persistent right lower extremity branch saphenous varicosity and multiple left leg branch saphenous veins and improving lower extremity symptoms. PLAN: Left leg microfoam chemical ablation of branch saphenous varicosities. Nurse notes, history and physical were reviewed and confirmed, see attached forms. The nurse was present throughout the physical exam and consultation Dictated by: Pablo Flores M.D. on 06/29/2023 at 11:39 Approved by: Pablo Flores M.D. on 06/29/2023 at 11:42
--- NOTE | 2023-06-29 10:13 | VEIN_ITS ---
Patient Name: EARL LUND MR#: [id number] : 1995 Exam Date: 06/29/2023 Ordering Doctor: DR GURDEEP AKINS M.D. RADIOLOGY REPORT PROCEDURE: VC EXT VENOUS RT LMTD COMPARISON: VC EXT VENOUS RT LMTD, 05/17/2023. INDICATIONS: I80.01 Phlebitis of superficial veins of rt lower extremity TECHNIQUE: Lower extremity oneil scale and Duplex Doppler evaluation of the deep venous system from the inguinal ligament through the calf veins. FINDINGS: REGION: Right lower extremity. THROMBI: Negative for DVT. Varithena induced thrombus visualized at prox/lat calf and mid/ant calf. COMPRESSIBILITY: Non-compressible segments corresponding to thrombus FLOW: Normal waveform and antegrade flow between 5 and 20 cm/s.Areas of no flow corresponding to thrombus OTHER: Largest patent varicose vein remaining measures 3.0mm with 1.3s reflux. CONCLUSION: 1. Successful post ablation occlusion of right leg treated branch saphenous varicosities. Dictated by: Pablo Flores M.D. on 06/29/2023 at 11:36 Approved by: Pablo Flores M.D. on 06/29/2023 at 11:38
== END 2023-06-29 10:13 | disposition home or self-care (01) ==
LOC: VC 10:12
PROVIDERS: PCP Radiology Diagnostic Radiology; Visit Provider Radiology Diagnostic Radiology
DX: I80.01 Phlebitis and thrombophlebitis of superficial vessels of right lower extremity (principal)
CPT/HCPCS: 93971; G0463

== ENCOUNTER 2024-11-27 14:46 | Outpatient (OUT) | payer OTHER, SELFPAY ==
--- OUTSIDE RECORDS SUMMARY | 2024-11-27 07:00 | XMS_ITS | Encounter Summary ---
Author Organization [facility] Address [address] [place] [address] Care Team Providers Care Flight Readiness Technician Name Role Phone Rashid Messina MD Primary Care Provider [phone] Reason for Visit * Reason Comments Follow-up 3m f/u Encounter Details Date Type Department Care Team (Late st Contact Info) Description 11/27/2024 7:00 AM EDT Office Visit [facility] [address] [place] [address] Rashid Messina MD [address] [place] [id number] Type 2 diabetes mellitus with hyperglycemia, without long-term current use of insulin (CMS/HCC) (Primary Dx); Major depressive disorder, recurrent episode, mild (HCC) (CMS/HCC); JAYJAY (generalized anxiety disorder) (CMS/HCC); Mild intermittent asthma without complication (CMS/HCC); Class 3 severe obesity due to excess calories with serious comorbidity and body mass index (BMI) of 50.0 to 59.9 in adult Social History Tobacco Use Types Packs/Day Years Used Date Smoking Tobacco: Former Cigarettes Smokeless Tobacco: Never B1300 Health Literacy Answer Date Recor ded How often do you need to hav e someone help you when you read instructions, pamphlets, or other written material from your doctor or pharmacy? Rarely 03/12/2024 Social Connection and Isolat ion Panel [NHANES] Answer Date Recorded In a typical week, how many times do you talk on the phone with family, friends, or neighbors? More than three times a week 03/12/2024 How often do you get togethe r with friends or relatives? Twice a week 03/12/2024 How often do you attend chur ch or adventist services? Never 03/12/2024 Do you belong to any clubs o r organizations such as yarsani groups, unions, fraternal or athletic groups, or school groups? No 03/12/2024 How often do you attend meet ings of the clubs or organizations you belong to? Patient declined 03/12/2024 Are you , , di vorced, , never , or living with a partner? Never 03/12/2024 AUDIT-C Answer Date Recorded Q1: How often do you have a drink containing alc ohol? Monthly or less 03/12/2024 Q2: How many drinks containi ng alcohol do you have on a typical day when you are drinking? 10 or more 03/12/2024 Q3: How often do you have si x or more drinks on one occasion? Less than monthly 03/12/2024 Overall Financial Resource Strain (CARDIA) Answe r Date Recorded How hard is it for you to pa y for the very basics like food, housing, medical care, and heating? Somewhat hard 03/12/2024 [facility] [place] of Occupat ional Health - Occupational Stress Questionnaire Answer Date Recorded Do you feel stress - tense, restless, nervous, or anxious, or unable to sleep at night because your mind is troubled all the time - these days? Only a little 03/12/2024 Exercise Vital Sign Answer Date Recorde d On average, how many days pe r week do you engage in moderate to strenuous exercise (like a brisk walk)? 1 day 03/12/2024 On average, how many minutes do you engage in exercise at this level? 20 min 03/12/2024 Hunger Vital Sign Answer Date Recorded Within the past 12 months, y ou worried that your food would run out before you got the money to buy more. Patient declined Within the past 12 months, t he food you bought just didn't last and you didn't have money to get more. Never true 09/2023 PRAPARE - Transportation Answer Date Re corded In the past 12 months, has l ack of transportation kept you from medical appointments or from getting medications? No 09/0 09/2023 In the past 12 months, has l ack of transportation kept you from meetings, work, or from getting things needed for daily living? No 03/12/2024 Housing Stability Vital Sign Answer Ferny e Recorded In the last 12 months, was t here a time when you were not able to pay the mortgage or rent on time? No 03/12/2024 In the past 12 months, how m any times have you moved where you were living? 0 03/12/2024 At any time in the past 12 m [facility], were you homeless or living in a longterm (including now)? No 03/12/2024 Sex and Gender Information Value Date Recorded Sex Assigned at Not on file Legal Sex Male 6:35 PM EDT Gender Identity Not on file Sexual Orientation Not on file documented as of this encounter Last Filed Vital Signs Vital Sign Reading Time Taken Comments Blood Pressure 130/74 11/27/2024 7:17 AM EDT Pulse 58 11/27/2024 7:17 AM EDT Temperature 36.4 C (97.5 F) 11/27/2024 7:17 AM EDT Respiratory Rate 18 11/27/2024 7:17 AM EDT Oxygen Saturation 89% 11/27/2024 7:17 AM EDT Inhaled Oxygen Concentration - - Weight 178 kg (392 lb) 11/27/2024 7:17 AM EDT Height 180.3 cm (5' 11 ) 11/27/2024 7:17 AM EDT Body Mass Index 54.67 11/27/2024 7:17 AM EDT documented in this encounter Progress Notes * Rashid Messina MD - 11/27/2024 7:43 AM EDTAssociated Problem(s): Type 2 diabetes mellitus with hyperglycemia (CMS/HCC) Reports BS elevated and due for A1C. Add ozempic. Stick to ADA diet and limit carbs. * Rashid Messina MD - 11/27/2024 7:43 AM EDTAssociated Problem(s): Mild intermittent asthma without complication (CMS/HCC) SOB stable and use albuterol PRN. * Rashid Messina MD - 11/27/2024 7:42 AM EDTAssociated Problem(s): Major depressive disorder, recurrent episode, mild (HCC) (CMS/HCC) Symptoms improved with effexor and continue at current dose. If worsens can increase dose in future. * Rashid Messina MD - 11/27/2024 7:42 AM EDTAssociated Problem(s): JAYJAY (generalized anxiety disorder) (CMS/HCC) Symptoms improved with effexor and continue at current dose. If worsens can increase dose in future. * Rashid Messina MD - 11/27/2024 7:42 AM EDTAssociated Problem(s): Class 3 severe obesity due to excess calories with serious comorbidity and body mass index (BMI) of 50.0 to 59.9 in adult Weight loss indicated. * Rashid Messina MD - 11/27/2024 7:00 AM EDT Images from the original note were not included. Subjective Patient ID: Dread Shaffer is a 29 y.o. male who presents for Follow-up (3m f/u). Follow up DM, depression, anxiety, asthma, and weight. Reports BS remains elevated 150-200. Tries to eat well and stick to ADA diet but still occasional splurges. Denies signs of elevated BS such as polyuria, polyphagia or polydipsia. Mood improved with effexor. Not as down or sad and feels happier. Interacting well with others. Anxiety stable. Not as stressed out or overwhelmed. Not as nervous or worry as much. Not as pro or irritable. Still occasional symptoms but overall improved. Asthma stable. Mild SOB with exertion. Occasional cough but no sputum. Using albuterol PRN and helps when needed. Weight up 5 pounds. Not active and no exercise. Interested in medication. Review of Systems Constitutional: Negative for fatigue. Respiratory: Negative for cough, shortness of breath and wheezing. Cardiovascular: Negative for chest pain and palpitations. Gastrointestinal: Negative for abdominal pain, diarrhea, nausea and vomiting. Genitourinary: Negative for dysuria. Objective Physical Exam Constitutional: General: He is not in acute distress. Appearance: Normal appearance. HENT: Head: Normocephalic. Right Ear: Tympanic membrane and ear canal normal. Left Ear: Tympanic membrane and ear canal normal. Eyes: Extraocular Movements: Extraocular movements intact. Pupils: Pupils are equal, round, and reactive to light. Cardiovascular: Rate and Rhythm: Normal rate and regular rhythm. Heart sounds: No murmur heard. No friction rub. No gallop. Pulmonary: Breath sounds: Normal breath sounds. No wheezing, rhonchi or rales. Abdominal: General: Bowel sounds are normal. There is no distension. Palpations: Abdomen is soft. Tenderness: There is no abdominal tenderness. There is no guarding or rebound. Musculoskeletal: Left lower leg: No edema. Neurological: Mental Status: He is alert. Assessment/Plan Problem List Items Addressed This Visit Mild intermittent asthma without complication (CMS/HCC) SOB stable and use albuterol PRN. Class 3 severe obesity due to excess calories with serious comorbidity and body mass index (BMI) of50.0 to 59.9 in adult Weight loss indicated. Major depressive disorder, recurrent episode, mild (HCC) (CMS/HCC) Symptoms improved with effexor and continue at current dose. If worsens can increase dose in future. JAYJAY (generalized anxiety disorder) (CMS/HCC) Symptoms improved with effexor and continue at current dose. If worsens can increase dose in future. Type 2 diabetes mellitus with hyperglycemia (CMS/HCC) - Primary Reports BS elevated and due for A1C. Add ozempic. Stick to ADA diet and limit carbs. Relevant Medications semaglutide (Ozempic, 0.25 or 0.5 MG/DOSE,) 2 MG/1.5ML solution pen-injector Other Relevant Orders Microalbumin / creatinine, urine ratio Hemoglobin A1c documented in this encounter Plan of Treatment Upcoming Encounters Date Type Department Care Team (Late st Contact Info) Description 01/07/2025 11:30 AM EDT Office Visit [facility] [address] [place] [phone] Rashid Messina MD [address] [place] [phone] 03/05/2025 7:00 AM EDT Office Visit [facility] [address] [place] [address] Rashid Messina MD [address] [place] [address] Scheduled Orders Name Type Priority Associated Diagnoses Orde r Schedule Microalbumin / creatinine, urine ratio Lab Routine Type 2 diabetes mellitus with hyperglycemia, without long-term current use of insulin ([facility]) Expected: 11/27/2024 (Approximate), Expires: 11/27/2025 Hemoglobin A1c Lab Routine Type 2 diabetes mellitus with hyperglycemia, without long-term current use of insulin ([facility]) Expected: 11/27/2024 (Approximate), Expires: 11/27/2025 documented as of this encounter Visit Diagnoses Diagnosis Type 2 diabetes mellitus with hyperglycemia, without long-term current use of insulin ([facility])- Primary Major depressive disorder, recurrent episode, mild (HCC) ([facility]) Major depressive disorder, recurrent episode, mild JAYJAY (generalized anxiety disorder) ([facility]) Generalized anxiety disorder Mild intermittent asthma without complication ([facility]) Class 3 severe obesity due to excess calories with serious comorbidity and body mass index (BMI) of 50.0 to 59.9 in adult documented in this encounter Care Teams Flight Readiness Technician Relationship Specialty Start Date End Date Rashid Messina MD [address] [place] [address] PCP - General Family Medicine 03/13/24 documented as of this encounter
--- OUTSIDE RECORDS SUMMARY | 2024-11-27 14:51 | XMS_ITS | Encounter Summary ---
Author Organization [facility] Address [address] [place] [address] Care Team Providers Care American Indian Policy Specialist Name Role Phone Rashid Messina MD Primary Care Provider [phone] Encounter Details Date Type Department Care Team (Late st Contact Info) Description 04/16/2024 [facility] [address] [place] [address] Rashid Messina MD [address] [place] [address] Social History Tobacco Use Types Packs/Day Years [...] often do you attend chur ch or presybeterian services? Never 03/12/2024 Do you belong to any clubs o r organizations such as sabianism groups, unions, fraternal or athletic groups, or [...] medical care, and heating? Somewhat hard 03/12/2024 [facility] Occupat ional [facility] - Occupational Stress Questionnaire Answer Date Recorded [...] medical appointments or from getting medications? No 09/2023 In the past 12 months, has [...] any time in the past 12 m [facility], were you homeless or living in a senior living (including now)? No 03/12/2024 Sex and Gender Information Value Date Recorded Sex Assigned at Not on file Legal Sex Male 6:35 PM EDT Gender Identity Not on file Sexual Orientation Not on file documented as of this encounter Plan of Treatment Upcoming Encounters Date Type Department Care Team (Late st Contact Info) Description 01/07/2025 11:30 AM EDT Office Visit [facility] [address] [place] [address] Rashid Messina MD [address] [place] [phone] 03/05/2025 7:00 AM EDT Office Visit [facility] [address] [place] [address] Rashid Messina MD [address] [place] [address] documented as of this encounter Procedures Procedure Name Priority Date/Time Associated Diagnosis Comments XR CHEST 1 VIEW Routine 04/16/2024 2:18 PM EDT documented in this encounter Results * XR chest 1 view (04/16/2024 2:18 PM EDT) Anatomical Region Laterality Modality Chest Radiographic Connie ging Rashid Messina MD IMG XR PROCEDURES Final Result documented in this encounter Visit Diagnoses Not on filedocumented in this encounter Care Teams American Indian Policy Specialist Relationship Specialty Start Date End Date Rashid Messina MD [address] [place] [address] PCP - General Family Medicine 03/13/24 documented as of this encounter
--- OUTSIDE RECORDS SUMMARY | 2024-11-27 14:51 | XMS_ITS | Encounter Summary ---
Author Organization [facility] Address [address] [place] [address] Care Team Providers Care Horse Shoer Name Role Phone Rashid Messina MD Primary Care Provider [phone] Encounter Details Date Type Department Care Team (Late st Contact Info) Description 04/12/2024 Orders Only [facility] [address] [place] [address] Rashid Messina MD [address] [place] [address] Social History Tobacco Use Types Packs/Day Years [...] often do you attend chur ch or mosque services? Never 03/12/2024 Do you belong to any clubs o r organizations such as islam groups, unions, fraternal or athletic groups, or [...] medical care, and heating? Somewhat hard 03/12/2024 [facility] of Occupat ional Health - Occupational Stress [...] any time in the past 12 m [facility], were you homeless or living in a fdc (including now)? No 03/12/2024 Sex and Gender Information Value Date Recorded Sex Assigned at Not on file Legal Sex Male 6:35 PM EDT Gender Identity Not on file Sexual Orientation Not on file documented as of this encounter Plan of Treatment Upcoming Encounters Date Type Department Care Team (Late st Contact Info) Description 01/07/2025 11:30 AM EDT Office Visit [facility] [address] [place] [phone] Rashid Messina MD [address] [place] [phone] 03/05/2025 7:00 AM EDT Office Visit [facility] [address] [place] [phone] Rashid Messina MD [address] [place] [address] documented as of this encounter Procedures Procedure Name Priority Date/Time Associated Diagnosis Comments XR CHEST 1 VIEW Routine 04/11/2024 9:05 AM EDT documented in this encounter Results * XR chest 1 view (04/11/2024 9:05 AM EDT) Anatomical Region Laterality Modality Chest Radiographic Connie ging Rashid Messina MD IMG XR PROCEDURES Final Result documented in this encounter Visit Diagnoses Not on filedocumented in this encounter Care Teams Horse Shoer Relationship Specialty Start Date End Date Rashid Messina MD [address] [place] [address] PCP - General Family Medicine 03/13/24 documented as of this encounter
--- OUTSIDE RECORDS SUMMARY | 2024-11-27 14:51 | XMS_ITS | Clinical Summary ---
Author Organization [facility] Address [address] [place] [address] Care Team Providers Care Log Roper Name Role Phone Jojo Guevara APRN - SIMON Primary Care Provider [phone] Allergies Active Allergy Reactions Criticality Noted Date Comments Bee Venom 06/14/2015 Medications albuterol (PROVENTIL HFA) 108 (90 BASE) MCG/ACT inhaler Inhale 2 puffs into the lungs every 6 hours as needed for Wheezing 1 Inhaler 0 06/14/2015 Active naproxen (NAPROSYN) 500 MG tablet Take 1 tablet by mouth 2 times daily 20 tablet 07/06/2018 Active Social History Tobacco Use Types Packs/Day Years Used Date Smoking Tobacco: Former Cigarettes Smokeless Tobacco: Current Chew Comments:quit 2 yrs ago Alcohol Use Standard Drinks/Week Comments Yes 0 (1 standard drink = 0.6 oz pur e alcohol) occasional Sex and Gender Information Value Date Recorded Sex Assigned at Not on file Legal Sex Male 9:37 PM EST Gender Identity Not on file Sexual Orientation Not on file Last Filed Vital Signs Vital Sign Reading Time Taken Comments Blood Pressure 137/59 07/06/2018 10:02 AM EST Pulse 88 07/06/2018 10:02 AM EST Temperature 36.7 C (98 F) 07/06/2018 10:02 AM EST Respiratory Rate 18 07/06/2018 10:0 2 AM EST Oxygen Saturation 98% 07/06/2018 10: 02 AM EST Inhaled Oxygen Concentration - - Weight 186.6 kg (411 lb 4.8 oz) 018 10:02 AM EST Height 180.3 cm (5' 11 ) 07/06/2018 10: 02 AM EST Body Mass Index 57.36 07/06/2018 10:02 AM EST Plan of Treatment Not on file Insurance [employer] Care Teams Log Roper Relationship Specialty Start Date End Date Jojo Guevara APRN - NP [address] [place] [id number] PCP - General 06/14/15
--- OUTSIDE RECORDS SUMMARY | 2024-11-27 14:51 | XMS_ITS | Encounter Summary ---
Author Organization [facility] Address [address] [place] [address] Care Team Providers Care Help Desk Administrator Name Role Phone Rashid Messina MD Primary Care Provider [phone] Encounter Details Date Type Department Care Team (Late st Contact Info) Description 11/27/2024 Bamboo flowsheet [facility] [address] [address] Rashid Messina MD [address] [place] [phone] Social History Tobacco Use Types Packs/Day Years [...] often do you attend chur ch or holiness services? Never 03/12/2024 Do you belong to any clubs o r organizations such as jain groups, unions, fraternal or athletic groups, or [...] medical care, and heating? Somewhat hard 03/12/2024 [facility] [place] of Occupat ional Health - Occupational Stress [...] any time in the past 12 m [facility], were you homeless or living in a penitentiary (including now)? No 03/12/2024 Sex and Gender [...] Visit [facility] [address] [place] [address] Rashid Messina MD [address] [place] [phone] 03/05/2025 7:00 AM EDT Office Visit [facility] [address] [place] [address] Rashid Messina MD [address] [place] [phone] documented as of this encounter Visit Diagnoses Not on filedocumented in this encounter Care Teams Help Desk Administrator Relationship Specialty Start Date End Date Rashid Messina MD [address] [place] [phone] PCP - General Family Medicine 03/13/24 documented as of this encounter
--- OUTSIDE RECORDS SUMMARY | 2024-11-27 14:51 | XMS_ITS | Encounter Summary ---
Author Organization [facility] Address [address] [place] [address] Care Team Providers Care Generator Repairer Name Role Phone Rashid Messina MD Primary Care Provider [phone] Encounter Details Date Type Department Care Team (Late st Contact Info) Description 03/15/2024 [facility] [address] [place] [address] Rashid Messina MD [address] [place] [address] Social History Tobacco Use Types Packs/Day Years [...] often do you attend chur ch or pentecostalism services? Never 03/12/2024 Do you belong to any clubs o r organizations such as orthodox groups, unions, fraternal or athletic groups, or [...] medical care, and heating? Somewhat hard 03/12/2024 [facility] of Occupat ional [facility] - Occupational Stress Questionnaire Answer Date Recorded [...] any time in the past 12 m [facility], were you homeless or living in a skilled nursing (including now)? No 03/12/2024 Sex and Gender [...] Visit [facility] [address] [place] [address] Rashid Messina MD [address] [place] [phone] 03/05/2025 7:00 AM EDT Office Visit [facility] [address] [place] [address] Rashid Messina MD [address] [place] [address] documented as of this encounter Procedures Procedure Name Priority Date/Time Associated Diagnosis Comments SCANNED LABS Routine 03/15/2024 9:43 AM EDT documented in this encounter Results * SCANNED LABS (03/15/2024 9:43 AM EDT) Rashid eMssina MD LAB CHG PERFORMABLES Final Resul t documented in this encounter Visit Diagnoses Not on filedocumented in this encounter Care Teams Generator Repairer Relationship Specialty Start Date End Date Rashid Messina MD [address] [place] [address] PCP - General Family Medicine 03/13/24 documented as of this encounter
--- OUTSIDE RECORDS SUMMARY | 2024-11-27 14:51 | XMS_ITS | Encounter Summary ---
Author Organization [facility] Address [address] [place] [address] Care Team Providers Care Rn Utilization Management Um Name Role Phone Rashid Messina MD Primary Care Provider [phone] Encounter Details Date Type Department Care Team (Late st Contact Info) Description 11/27/2024 [facility] [address] [place] [address] Rashid Messina MD [address] [place] [address] Class 3 severe obesity due to excess [...] often do you attend chur ch or voodoo services? Never 03/12/2024 Do you belong to any clubs o r organizations such as worship groups, unions, fraternal or athletic groups, or [...] medical care, and heating? Somewhat hard 03/12/2024 [facility] [place] of Occupat ional Health - Occupational Stress [...] any time in the past 12 m [facility], were you homeless or living in a nursing home (including now)? No 03/12/2024 Sex and Gender [...] [facility] [address] [place] [address] Rashid Messina MD [address] [place] [address] 03/05/2025 7:00 AM EDT Office Visit [facility] [address] [place] [address] Rashid Messina MD [address] [place] [phone] documented as of this encounter Visit Diagnoses Diagnosis Class 3 severe obesity due to excess calories with serious comorbidity and body mass index (BMI) of 50.0 to 59.9 in adult documented in this encounter Care Teams Rn Utilization Management Um Relationship Specialty Start Date End Date Rashid Messina MD [address] [place] [address] PCP - General Family Medicine 03/13/24 documented as of this encounter
--- OUTSIDE RECORDS SUMMARY | 2024-11-27 14:51 | XMS_ITS | Encounter Summary ---
Author Organization [facility] Address [address] [place] [address] Care Team Providers Care Professor Of Violin Name Role Phone Rashid Messina MD Primary Care Provider [phone] Reason for Visit * Reason Onset Date Comments Med Refill 11/21/2024 Encounter Details Date Type Department Care Team (Late st Contact Info) Description 11/21/2024 Refill [facility] [address] [place] [phone] Rashid Messina MD [address] [place] [address] Mild intermittent asthma without complication (CMS/HCC); Type 2 diabetes mellitus with hyperglycemia, without long-term current use of insulin (CMS/[facility]) Social History Tobacco Use Types Packs/Day Years [...] 03/12/2024 How often do you attend chur or baptism services? Never 03/12/2024 Do you belong to any clubs o r organizations such as yarsanism groups, unions, fraternal or athletic groups, or [...] medical care, and heating? Somewhat hard 03/12/2024 [facility] [place] of Occupat ional Health - Occupational Stress [...] any time in the past 12 m [facility], were you homeless or living in a fdc (including now)? No 03/12/2024 Sex and Gender Information Value Date Recorded Sex Assigned at Not on file Legal Sex Male 6:35 PM EDT Gender Identity Not on file Sexual Orientation Not on file documented as of this encounter Miscellaneous Notes * Telephone Encounter - PELON ABREU - 11/21/2024 8:26 AM EDT MEDICATION SENT TO PHAMACY documented in this encounter Plan of Treatment Upcoming Encounters Date Type Department Care Team (Late st Contact Info) Description 01/07/2025 11:30 AM EDT Office Visit [facility] [address] [place] [phone] Rashid Messina MD [address] [place] [phone] 03/05/2025 7:00 AM EDT Office Visit [facility] [address] [place] [address] Rashid Messina MD [address] [place] [phone] documented as of this encounter Visit Diagnoses Diagnosis Mild intermittent asthma without complication (CMS/HCC) Type 2 diabetes mellitus with hyperglycemia, without long-term current use of insulin (CMS/HCC) documented in this encounter Care Teams Professor Of Violin Relationship Specialty Start Date End Date Rashid Messina MD [address] [place] [phone] PCP - General Family Medicine 03/13/24 documented as of this encounter
--- OUTSIDE RECORDS SUMMARY | 2024-11-27 14:51 | XMS_ITS | Encounter Summary ---
Author Organization [facility] Address [address] [place] [address] Care Team Providers Care Lead Relay Tester Name Role Phone Rashid Messina MD Primary Care Provider [phone] Encounter Details Date Type Department Care Team (Latest Contact Info) Description 11/26/2024 Travel Social History Tobacco Use Types Packs/Day Years [...] How often do you attend chur or anglican services? Never 03/12/2024 Do you belong to any clubs o r organizations such as caodaism groups, unions, fraternal or athletic groups, or [...] medical care, and heating? Somewhat hard 03/12/2024 [facility] [place] of Occupat ional Health - Occupational Stress [...] any time in the past 12 m [facility], were you homeless or living in a senior care (including now)? No 03/12/2024 Sex and Gender [...] Visit [facility] [address] [place] [phone] Rashid Messina MD [address] [place] [phone] 03/05/2025 7:00 AM EDT Office Visit [facility] [address] [place] [phone] Rashid Messina MD [address] [place] [address] documented as of this encounter Visit Diagnoses Not on filedocumented in this encounter Care Teams Lead Relay Tester Relationship Specialty Start Date End Date Rashid Messina MD [address] [place] [address] PCP - General Family Medicine 03/13/24 documented as of this encounter
--- OUTSIDE RECORDS SUMMARY | 2024-11-27 14:51 | XMS_ITS | Clinical Summary ---
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 05/04/20 23 Active metFORMIN XR (Glucophage-XR) 500 MG 24 hr tabletIndication s:Type 2 diabetes mellitus with hyperglycemia, without long-term current use of insulin ([facility]) Take 1 tablet (500 mg) by mouth in the evening. Take with meals Do not crush, chew, or split. 30 tablet 3 03/14/20 24 Active Blood Glucose Monitoring Suppl (Blood Glucose Monitor System) w/Device kitIndications:T ype 2 diabetes mellitus with hyperglycemia, without long-term current use of insulin ([facility]) 1 each Daily 1 kit 03/14/20 24 Active Glucose Blood (Blood Glucose Test Strips 333) stripIndications :Type 2 diabetes mellitus with hyperglycemia, without long-term current use of insulin ([facility]) 1 each by In Vitro route Daily 50 strip 11 03/14/20 24 Active Lancets Micro Thin 33G miscIndications: Type 2 diabetes mellitus with hyperglycemia, without long-term current use of insulin (CMS/HCC) 1 each Daily 50 each 11 03/14/20 24 Active traZODone (Desyrel) 50 MG tabletIndication s:Psychophysiolo gical insomnia Take 1 tablet (50 mg) by mouth at bedtime 30 tablet 2 03/11/20 25 Active venlafaxine XR (Effexor XR) 75 MG 24 hr capsuleIndicatio ns:Major depressive disorder, recurrent episode, mild (HCC) (CMS/HCC) Take 1 capsule (75 mg) by mouth Daily Take with food. 30 capsule 3 11/08/19 25 Active albuterol HFA 90 mcg/act inhalerIndicatio ns:Mild intermittent asthma without complication (CMS/HCC) Inhale 2 puffs every 4 (four) hours if needed for wheezing 8 g 3 11/22/19 25 Active albuterol (2.5 MG/3ML) 0.083% nebulizer solutionIndicati ons:Mild intermittent asthma without complication (CMS/HCC) Take 3 mL (2.5 mg) by nebulization every 6 (six) hours if needed for shortness of breath 75 mL 2 11/22/19 25 Active atorvastatin (Lipitor) 40 MG tabletIndication s:Type 2 diabetes mellitus with hyperglycemia, without long-term current use of insulin (CMS/HCC) Take 1 tablet (40 mg) by mouth at bedtime 30 tablet 5 11/22/19 25 Active glipiZIDE (Glucotrol) 10 MG tabletIndication s:Type 2 diabetes mellitus with hyperglycemia, without long-term current use of insulin (CMS/HCC) Take 1 tablet (10 mg) by mouth in the morning and 1 tablet (10 mg) in the evening. Take before meals. 60 tablet 3 11/22/19 25 Active phentermine (Adipex-P) 37.5 MG tabletIndication s:Class 3 severe obesity due to excess calories with serious comorbidity and body mass index (BMI) of 50.0 to 59.9 in adult Take 1 tablet (37.5 mg) by mouth in the morning. Take before meals. 30 tablet 11/28/19 25 12/27/ 025 Active albuterol HFA 90 mcg/act inhalerIndicatio ns:Mild intermittent asthma without complication (CMS/HCC) TAKE 2 PUFFS BY MOUTH EVERY 4 HOURS NEEDED 8 g 3 09/28/19 24 025 Discontin ued(Reord er) albuterol (2.5 MG/3ML) 0.083% nebulizer solution Take 2.5 mg by nebulization every 6 (six) hours if needed 05/04/20 23 025 Discontin ued(Reord er) atorvastatin (Lipitor) 40 MG tabletIndication s:Type 2 diabetes mellitus with hyperglycemia, without long-term current use of insulin (CMS/HCC) Take 1 tablet (40 mg) by mouth at bedtime 30 tablet 5 03/14/20 24 025 Discontin ued(Reord er) glipiZIDE (Glucotrol) 10 MG tabletIndication s:Type 2 diabetes mellitus with hyperglycemia, without long-term current use of insulin (CMS/HCC) Take 1 tablet (10 mg) by mouth in the morning and 1 tablet (10 mg) in the evening. Take before meals. 60 tablet 3 06/27/20 24 025 Discontin ued(Reord er) venlafaxine XR (Effexor XR) 75 MG 24 hr capsuleIndicatio ns:Major depressive disorder, recurrent episode, mild (HCC) (CMS/HCC) Take 1 capsule (75 mg) by mouth Daily Take with food. 30 capsule 3 09/11/19 25 025 Discontin ued(Reord er) semaglutide (Ozempic, 0.25 or 0.5 MG/DOSE,) 2 MG/1.5ML solution pen-injectorIndi cations:Type 2 diabetes mellitus with hyperglycemia, without long-term current use of insulin (CMS/HCC) 0.25 mg SC weekly x 4 weeks, then 0.5 mg weekly 1 each 3 11/28/19 25 025 Discontin ued(Cost of medicatio n) phentermine (Adipex-P) 37.5 MG tabletIndication s:Class 3 severe obesity due to excess calories with serious comorbidity and body mass index (BMI) of 50.0 to 59.9 in adult Take 1 tablet (37.5 mg) by mouth in the morning. Take before meals. 30 tablet 11/28/19 25 025 Discontin ued(Reord er) Active Problems Problem Noted Date Diagnosed Date Psychophysiological insomnia 09/17/2024 Type 2 diabetes mellitus with hyperglycemia 11/2023 Assessment & Plan (11/27/2024 7:43 AM EDT): Reports BS elevated and due for A1C. Add ozempic. Stick to ADA diet and limit carbs. Assessment & Plan (08/28/2024 8:13 AM EST): Reports BS improved and continue to monitor. Stick to ADA diet and limit carbs. Assessment & Plan (06/26/2024 8:17 AM EST): Reports BS improved and due for A1C. Stick to ADA diet and limit carbs. Assessment & Plan (04/24/2024 8:01 AM EDT): New onset DM and check BS once a day. Stick to ADA diet and limit carbs. Edema of leg 03/13/2024 Gastroesophageal reflux disease 03/13/2024 Mild intermittent asthma without complication Assessment & Plan (11/27/2024 7:43 AM EDT): SOB stable and use albuterol PRN. Assessment & Plan (08/28/2024 8:13 AM EST): Increased SOB and needs inhaled steroid. Contact insurance to see what medication is preferred. Use albuterol PRN. Assessment & Plan (06/26/2024 8:15 AM EST): Increased SOB and add inhaled steroid. Use albuterol PRN. Superficial phlebitis and th rombophlebitis of left lower extremity 03/13/2024 Superficial phlebitis and th rombophlebitis of right lower extremity 03/13/2024 Varicose veins of both lower extremities with pa in 03/13/2024 Class 3 severe obesity due t o excess calories with serious comorbidity and body mass index (BMI) of 50.0 to 59.9 in adult 03/13/2024 Assessment & Plan (11/27/2024 7:42 AM EDT): Weight loss indicated. Assessment & Plan (08/28/2024 8:12 AM EST): Weight unchanged. Assessment & Plan (06/26/2024 8:13 AM EST): Weight down 4 pounds. Annual physical exam 03/13/2024 Assessment & Plan (03/13/2024 7:44 AM EDT): Due for labs. Discussed proper diet and regular aerobic exercise. Need aerobic exercise 5-6 days a week for 30 minutes at a time. Smaller portions and limit total calories. Colonoscopy after age 45. Tetanus every 10 years. Advised not to smoke. Discussed daily Aspirin therapy. Major depressive disorder, recurrent episode, mi ld (HCC) 03/13/2024 Assessment & Plan (11/27/2024 7:42 AM EDT): Symptoms improved with effexor and continue at current dose. If worsens can increase dose in future. Assessment & Plan (08/28/2024 8:12 AM EST): Symptoms slightly improved but worse and stop prozac. Try effexor. Warned will take 2-3 weeks to notice improvement in mood. Assessment & Plan (06/26/2024 8:15 AM EST): Symptoms slightly improved but still present and increase prozac. Warned will take 2-3 weeks to notice improvement in mood. Assessment & Plan (04/24/2024 8:01 AM EDT): Symptoms unchanged with with celexa and stop. Start zoloft and warned will take 2-3 weeks to notice improvement in mood. Assessment & Plan (03/13/2024 7:44 AM EDT): Symptoms worsening for months and start celexa. Warned will take 2-3 weeks to notice improvement in mood. JAYJAY (generalized anxiety disorder) 03/13/2024 Assessment & Plan (11/27/2024 7:42 AM EDT): Symptoms improved with effexor and continue at current dose. If worsens can increase dose in future. Assessment & Plan (08/28/2024 8:12 AM EST): Symptoms slightly improved but worse and stop prozac. Try effexor. Warned will take 2-3 weeks to notice improvement in mood. Assessment & Plan (06/26/2024 8:15 AM EST): Symptoms slightly improved but still present and increase prozac. Warned will take 2-3 weeks to notice improvement in mood. Assessment & Plan (04/24/2024 8:01 AM EDT): Symptoms unchanged with with celexa and stop. Start zoloft and warned will take 2-3 weeks to notice improvement in mood. Use hydroxyzine PRN. Assessment & Plan (03/13/2024 7:44 AM EDT): Symptoms worsening for months and start celexa. Warned will take 2-3 weeks to notice improvement in mood. Use hydroxyzine PRN. Encounters Date Type Department Care Team Description 11/27/2024 7:00 AM EDT Office Visit [facility] [address] [place] [address] Hernandez Mckeon MD Type 2 diabetes mellitus with hyperglycemia, without long-term current use of insulin (CMS/HCC) (Primary Dx); Major depressive disorder, recurrent episode, mild (HCC) (CMS/HCC); JAYJAY (generalized anxiety disorder) (CMS/HCC); Mild intermittent asthma without complication (CMS/HCC); Class 3 severe obesity due to excess calories with serious comorbidity and body mass index (BMI) of 50.0 to 59.9 in adult 11/27/2024 Orders Only [facility] [address] [place] [phone] Hernandez Mckeon MD Class 3 severe obesity due to excess calories with serious comorbidity and body mass index (BMI) of 50.0 to 59.9 in adult 11/27/2024 Telephone [facility] [address] [place] [address] Hernandez Mckeon MD Medication Question 11/27/2024 Bamboo flowsheet [facility] [address] [place] [address] Hernandez Mckeon MD 11/26/2024 Travel 11/21/2024 Refill [facility] [address] [place] [address] Hernandez Mckeon MD Mild intermittent asthma without complication ([facility]); Type 2 diabetes mellitus with hyperglycemia, without long-term current use of insulin ([facility]) 11/07/2024 Refill [facility] [address] [place] [address] Hernandez Mckeon MD Major depressive disorder, recurrent episode, mild (HCC) ([facility]) 11/07/2024 Refill [facility] [address] [place] [address] Hernandez Mckeon MD 09/17/2024 Telephone [facility] [address] [place] [address] Hernandez Mckeon MD 09/10/[address] [facility] [address] [place] [address] Hernandez Mckeon MD Med Refill 09/05/2024 Refill [facility] [address] [place] [address] Hernandez Mckeon MD Major depressive disorder, recurrent episode, mild (HCC) ([facility]) 09/05/2024 [facility] [address] [place] [address] Hernandez Mckeon MD from Last 3 Months Social History Tobacco Use Types Packs/Day Years Used Date Smoking Tobacco: Former Cigarettes Smokeless Tobacco: Never Tobacco Cessation:Counseling Given: Not Answered B1300 Health Literacy Answer Date Recor ded [...] often do you attend chur ch or evangelical services? Never 03/12/2024 Do you belong to any clubs o r organizations such as pentecostal groups, unions, fraternal or athletic groups, or [...] medical care, and heating? Somewhat hard 03/12/2024 [facility] of Occupat ional Health - Occupational Stress [...] any time in the past 12 m [facility], were you homeless or living in [...] Mass Index 54.67 11/27/2024 7:17 AM EDT Plan of Treatment Upcoming Encounters Date Type Department Care Team (Late st Contact Info) Description 01/07/2025 11:30 AM EDT Office Visit [facility] [address] [place] [address] Hernandez Mckeon MD [address] [place] [phone] 03/05/2025 7:00 AM EDT Office Visit [facility] [address] [place] [address] Hernandez Mckeon MD [address] [place] [address] Health Maintenance Due Date Last Done Comments Diabetes: Retinopathy Screening 2007 Diabetes: Urine Protein Screening 02/06/2016 Diabetes: Hemoglobin A1C 12/25/2024 06/26/2024, 09/0 11/2023 Influenza Vaccine (Season Ended) 2025 Procedures Procedure Name Priority Date/Time Associated Diagnosis Comments [facility] [place] HGBA1C Routine 06/26/2024 2:20 PM EST from Last 3 Months or Most Recently Relevant to Health Maintenance Results * (ABNORMAL) [facility] [place] HGBA1C (06/26/2024 2:20 PM EST) [facility] [place] HEMOGLOBIN A1C/HEMOGLOBIN. 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
--- OUTSIDE RECORDS SUMMARY | 2024-11-27 14:51 | XMS_ITS | Encounter Summary ---
Author Organization [facility] Address [address] [place] [address] Care Team Providers Care Slip Tender Name Role Phone Rashid Messina MD Primary Care Provider [phone] Reason for Visit * Reason Onset Date Comments Medication Question 11/27/2024 Encounter Details Date Type Department Care Team (Late st Contact Info) Description 11/27/2024 Telephone [facility] [address] [place] [address] Rashid Messina MD [address] [place] [phone] Medication Question Social History Tobacco Use Types Packs/Day Years [...] often do you attend chur ch or muslim services? Never 03/12/2024 Do you belong to any clubs o r organizations such as rastafari groups, unions, fraternal or athletic groups, or [...] medical care, and heating? Somewhat hard 03/12/2024 [facility] [employer] [place] of Occupat ional Health - Occupational Stress [...] were you homeless or living in a half-way (including now)? No 03/12/2024 Sex and Gender Information Value Date Recorded Sex Assigned at Not on file Legal Sex Male 6:35 PM EDT Gender Identity Not on file Sexual Orientation Not on file documented as of this encounter Miscellaneous Notes * Telephone Encounter - Rashid Messina MD - 11/27/2024 2:27 PM EDT Try adipex. Make 1 month follow up appointment. * Telephone Encounter - Lisha Self - 11/27/2024 2:24 PM EDT Patient called saying he went to cook pickled meat the Ozempic from [employer] and it will be $1,000 and he can not afford that. He wants to know if there is something else that would be cheaper that he can use instead. JN documented in this encounter Plan of Treatment Upcoming Encounters Date Type Department Care Team (Late st Contact Info) Description 01/07/2025 11:30 AM EDT Office Visit [facility] [address] [place] [address] Rashid Messina MD [address] [place] [phone] 03/05/2025 7:00 AM EDT Office Visit [facility] [address] [place] [address] Rashid Messina MD [address] [place] [phone] documented as of this encounter Visit Diagnoses Diagnosis Class 3 severe obesity due to excess calories with serious comorbidity and body mass index (BMI) of 50.0 to 59.9 in adult- Primary documented in this encounter Care Teams Slip Tender Relationship Specialty Start Date End Date Rashid Messina MD [address] [place] [address] PCP - General Family Medicine 03/13/24 documented as of this encounter
--- OUTSIDE RECORDS SUMMARY | 2024-11-27 14:56 | XMS_ITS | CCD ---
Author Organization [facility] CliniSyor Care Team Providers Care Tennis Instructor Name Role Phone MONA BAKER Unavailable Unavailable SUDHA, VESELIN Unavailable Unavailable Toni Madeline Unavailable Lanre LAWRENCE Primary Care Physician REQUEST, NONE LISTED Primary Care Unavaila danielle MCKEON, DR RASHID Vaz Attending Unavailable NADERER, DR RASHID Vaz Admitting Unavailable REINECK, DR LAM Karimi Attending Unavailabl e REINECK, DR LAM Karimi Consulting Unavailabl e REINECK, DR LAM Karimi Admitting Unavailabl e REQUEST, DR NONE LISTED Primary Care Unavaila RASHID Metcalf Attending Unavailable MIKE, RASHID Admitting Unavailable RASHID MCKEON Primary Care Physician RASHID MCKEON Admitting Unavailable RASHID MCKEON Attending Unavailable Felipe Garcias Attending Unavailable Arnulfo Mills Attending Unavailable Arnulfo Mills Admitting Unavailable Rashid Mckeon MD Primary Care Provider RASHID MCKEON Admitting Unavailable MIKE, RASHID Attending Unavailable Felipe Garcias Admitting Unavailable Felipe Garcias Attending Unavailable RASHID MCKEON Attending Unavailable RASHID MCKEON Admitting Unavailable RASHID MCKEON Attending Unavailable RASHID MCKEON Attending Unavailable MIKE, RASHID Attending Unavailable MIKE, RASHID Attending Unavailable Allergies Allergy Classification Reported Allergen(s) Allergy Type Date of Onset Reaction(s) Facility (8 sources) Bee/Wasp/Ant venom; Translations: [Bee Stings] Allergy to substance Swelling (finding) [facility] [place] (4 sources) No Known Medication Allergies; Translations: [No Known Medication Allergies] Propensity to adverse reactions (disorder) [facility] Repository NEGATED: Highlighted row has been ruled out! (1 source) Drug allergy [facility] NEGATED: Highlighted row has been ruled out! (1 source) Drug allergy [facility] NEGATED: Highlighted row has been ruled out! (1 source) Drug allergy [facility] NEGATED: Highlighted row has been ruled out! (1 source) Drug allergy [facility] Medications Current Medications Medication Drug Class(es) Dates Sig (Normalized) Sig (Original) [id number] 200 actuat albuterol 0.09 mg/actuat metered dose inhaler (20 sources) beta2-Adrenergic Agonist Start: 11-21-2024 albuterol (2.5 MG/3ML) 0.083% nebulizer solution Indications: Mild intermittent asthma without complication (CMS/HCC) Take 3 mL (2.5 mg) by nebulization every 6 (six) hours if needed for shortness of breath 75 mL 2 11/21/2024 Active Start: 11-21-2024 take 2 puff(s) by in halation every four hours for wheezing albuterol HFA 90 mcg/act inhaler Indications: Mild intermittent asthma without complication (CMS/HCC) Inhale 2 puffs every 4 (four) hours if needed for wheezing 8 g 3 11/21/2024 Active Start: 09-28-2023 take 2 puff(s) by mo uth every four hours as needed albuterol HFA 90 mcg/act inhaler Indications: Mild intermittent asthma without complication (CMS/HCC) TAKE 2 PUFFS BY MOUTH EVERY 4 HOURS NEEDED 8 g 3 09/28/2023 Active Start: 05-04-2023 albuterol (2.5 MG/3ML) 0.083% nebulizer solution Take 2.5 mg by nebulization every 6 (six) hours if needed 05/04/2023 Active Start: 05-03-2023 take 2.5 mg by inhal ation every six hours for wheezing albuterol 0.083% Inh Mabel 3 mL 2.5 mg, 3 mL, Inhalation, q6hr for wheezing, 60 EA, Refill(s) 0, [id number], 180, cm, 02/01/22 11:53:00 EDT, Height/Length Dosing, 170.9, kg, 02/01/22 11:53:00 EDT, Weight Dosing Start Date: 05/03/23 Status: Ordered Start: 12-15-2021 take 2.5 mg by inhal ation every six hours for wheezing albuterol 0.083% Inh Mabel 3 mL 2.5 mg, 3 mL, Inhalation, q6hr for wheezing, 100 EA, Refill(s) 2, [id number], 180, cm, 08/04/21 13:28:00 EST, Height/Length Dosing, 182.9, kg, 08/04/21 13:28:00 EST, Weight Dosing Start Date: 12/15/21 Status: Ordered Start: 03-04-2017 take 2 puff(s) by in halation every four hours as needed Ventolin HFA 108 (90 Base) MCG/ACT 2 puffs as needed Inhalation every 4 hrs for 30 days Feb, Active Ventolin HFA Act casey Albuterol (Eqv-ProAir HFA) 90 mcg/inh inhalation aerosol (2 sources) Start: 04-11-2024 take 2 puff(s) by inhalation every four hours Albuterol (Eqv-ProAir HFA) 90 mcg/inh inhalation aerosol 2 puff(s), Inhalation, q4hr Cough and Congestion, 6.7 gm, Refill(s) 0, [facility], 180.3, cm, 04/11/24 16:28:00 EDT, Height/Length Dosing, 173, kg, 04/11/24 16:28:00 EDT, Weight Dosing Start Date: 04/11/24 Status: Ordered albuterol 0.833 mg/ml / ipratropium bromide 0.167 mg/ml inhalation solution (2 sources) Anticholinergic , beta2-Adrenergi c Agonist Start: 04-11-2024 take 3 mL by inhalation every six hours DuoNeb 2.5 mg-0.5 mg/3 mL Soln-Inh 3 mL, Inhalation, q6hr Shortness of breath or wheezing, 60 EA, Refill(s) 0, [facility], 180.3, cm, 04/11/24 16:28:00 EDT, Height/Length Dosing, 173, kg, 04/11/24 16:28:00 EDT, Weight Dosing Start Date: 04/11/24 Status: Ordered atorvastatin 40 mg oral tablet (16 sources) HMG-CoA Reductase Inhibitor Start: 11-21-2024 take 1 tablet by mouth at bedtime atorvastatin (Lipitor) 40 MG tablet Indications: Type 2 diabetes mellitus with hyperglycemia, without long-term current use of insulin (CMS/HCC) Take 1 tablet (40 mg) by mouth at bedtime 30 tablet 5 11/21/2024 Active Start: 03-14-2024 take 1 tablet by juliette th at bedtime atorvastatin (Lipitor) 40 MG tablet Indications: Type 2 diabetes mellitus with hyperglycemia, without long-term current use of insulin (CMS/HCC) Take 1 tablet (40 mg) by mouth at bedtime 30 tablet 5 03/14/2024 Active breath-actuated 120 actuat beclomethasone dipropionate 0.04 mg/actuat metered dose inhaler (3 sources) Corticosteroid Start: 07-15-2024 End: 08-28-2024 beclomethasone HFA (Qvar RediHaler) 40 MCG/ACT inhaler Indications: Mild intermittent asthma without complication (CMS/HCC) Inhale 1 Inhalation in the morning and 1 Inhalation before bedtime. Rinse mouth with water after use to reduce aftertaste and incidence of candidiasis. Do not swallow.. 10.6 g 5 07/15/2024 08/28/2024 Discontinued Blood Glucose Monitoring Suppl (Blood Glucose Monitor System) w/Device kit (16 sources) Start: 03-14-2024 Blood Glucose Monitoring Suppl (Blood Glucose Monitor System) w/Device kit Indications: Type 2 diabetes mellitus with hyperglycemia, without long-term current use of insulin (CMS/HCC) 1 each Daily 1 kit 03/14/2024 Active 60 actuat budesonide 0.09 mg/actuat dry powder inhaler (4 sources) Corticosteroid Start: 06-26-2024 take 2 puff(s) by mouth in the morning budesonide (Pulmicort Flexhaler) 90 MCG/ACT inhaler Indications: Mild intermittent asthma without complication (CMS/HCC) Inhale 2 puffs in the morning and 2 puffs before bedtime. Rinse mouth with water after use to reduce aftertaste and incidence of candidiasis. Do not swallow.. 1 each 5 06/26/2024 Active citalopram 20 mg oral tablet (7 sources) Serotonin Reuptake Inhibitor Start: 03-13-2024 End: 04-24-2024 take 1 tablet by mouth once daily citalopram (CeleXA) 20 MG tablet Indications: Major depressive disorder, recurrent episode, mild (HCC) (CMS/HCC) Take 1 tablet (20 mg) by mouth Daily 30 tablet 3 03/13/2024 04/24/2024 Discontinued Full Kit Nebulizer Set - (2 sources) Start: 03-14-2017 Full Kit Nebulizer Set - as directed Mar, Active Start: 03-04-2017 Full Kit Nebul izer Set - as directed Feb, Active furosemide 20 mg oral tablet (4 sources) Loop Diuretic Start: 04-13-2022 take 1 tablet by mouth once daily as needed furosemide 20 mg Tab 20 mg = 1 tab(s), Oral, Daily, PRN leg swelling, # 30 tab(s), Refills(s) 2, Pharmacy: [facility] #[id number], 180, cm, 02/01/22 11:53:00 EDT, Height/Length Dosing, 170.9, kg, 02/01/22 11:53:00 EDT, Weight Dosing Start Date: 04/13/22 Status: Ordered Start: 12-15-2021 take 1 tablet by juliette th once daily as needed furosemide 20 mg Tab 20 mg = 1 tab(s), Oral, Daily, PRN leg swelling, # 30 tab(s), Refills(s) 2, Pharmacy: [facility]/pharmacy #[id number], 180, cm, 08/04/21 13:28:00 EST, Height/Length Dosing, 182.9, kg, 08/04/21 13:28:00 EST, Weight Dosing Start Date: 12/15/21 Status: Ordered glipiZIDE 10 mg oral tablet (17 sources) Sulfonylurea Start: 11-21-2024 take 1 tablet by mouth in the morning glipiZIDE (Glucotrol) 10 MG tablet Indications: Type 2 diabetes mellitus with hyperglycemia, without long-term current use of insulin (CMS/HCC) Take 1 tablet (10 mg) by mouth in the morning and 1 tablet (10 mg) in the evening. Take before meals. 60 tablet 3 11/21/2024 Active Start: 03-14-2024 End: 06-27-2024 take 1 tablet by mouth in the morning glipiZIDE (Glucotrol) 10 MG tablet Indications: Type 2 diabetes mellitus with hyperglycemia, without long-term current use of insulin (CMS/HCC) Take 1 tablet (10 mg) by mouth in the morning and 1 tablet (10 mg) in the evening. Take before meals. 60 tablet 3 06/27/2024 Active hydrOXYzine hydrochloride 25 mg oral tablet (15 sources) Antihistamine Start: 03-13-2024 End: 08-28-2024 take 1 tablet by mouth four times daily as needed for anxiety hydrOXYzine HCl (Atarax) 25 MG tablet Indications: JAYJAY (generalized anxiety disorder) (CMS/HCC) Take 1 tablet (25 mg) by mouth 4 (four) times a day as needed for anxiety 60 tablet 2 03/13/2024 08/28/2024 Discontinued ipratropium bromide 0.2 mg/ml inhalation solution (20 sources) Anticholinergic Start: 05-04-2023 ipratropium (Atrovent) 0.02 % nebulizer solution Take 0.5 mg by nebulization in the morning and 0.5 mg at noon and 0.5 mg in the evening and 0.5 mg before bedtime. 05/04/2023 Active Start: 05-03-2023 take 60 doses by inh alation four times daily ipratropium 0.02% Inh Mabel 2.5 mL 500 microgram, 2.5 mL, Inhalation, QID Shortness of breath or wheezing, 60 EA, Refill(s) 0, [facility]/pharmacy [id number], 180, cm, 02/01/22 11:53:00 EDT, Height/Length Dosing, 170.9, kg, 02/01/22 11:53:00 EDT, Weight Dosing Start Date: 05/03/23 Status: Ordered Start: 08-04-2021 take 100 doses by in halation four times daily ipratropium 0.02% Inh Mabel 2.5 mL 500 microgram, 2.5 mL, Inhalation, QID Shortness of breath or wheezing, 100 EA, Refill(s) 11, [facility]/pharmacy #[id number], 180, cm, 08/04/21 13:28:00 EST, Height/Length Dosing, 182.9, kg, 08/04/21 13:28:00 EST, Weight Dosing Start Date: 08/04/21 Status: Ordered 24 hr metFORMIN hydrochloride 500 mg extended release oral tablet (16 sources) Biguanide Start: 03-14-2024 take 1 tablet by mouth every twenty-four hours at mealtime metFORMIN XR (Glucophage-XR) 500 MG 24 hr tablet Indications: Type 2 diabetes mellitus with hyperglycemia, without long-term current use of insulin ([facility]) Take 1 tablet (500 mg) by mouth in the evening. Take with meals Do not crush, chew, or split. 30 tablet 3 03/14/2024 Active montelukast 10 mg oral tablet (1 source) Leukotriene Receptor Antagonist Start: 03-04-2017 take 1 tablet by mouth every twenty-four hours Singulair 10 MG 1 tablet in the evening Orally Once a day for 30 day(s) Feb, Active Nebulizer (1 source) Nebulizer Active pantoprazole 40 mg delayed release oral tablet (4 sources) Proton Pump Inhibitor Start: 04-13-2022 take 1 tablet by mouth twice daily Protonix 40 mg Tab-DR 40 mg = 1 tab(s), Oral, BID, # 60 tab(s), Refills(s) 11, Pharmacy: [facility]acy #[id number], 180, cm, 02/01/22 11:53:00 EDT, Height/Length Dosing, 170.9, kg, 02/01/22 11:53:00 EDT, Weight Dosing Start Date: 04/13/22 Status: Ordered Start: 08-04-2021 take 1 tablet by [facility] twice daily Protonix 40 mg Tab-DR 40 mg = 1 tab(s), Oral, BID, # 60 tab(s), Refills(s) 11, Pharmacy: [facility]/pharmacy #[id number], 180, cm, 08/04/21 13:28:00 EST, Height/Length Dosing, 182.9, kg, 08/04/21 13:28:00 EST, Weight Dosing Start Date: 08/04/21 Status: Ordered permethrin 50 mg/ml topical cream (3 sources) Pyrethroid Start: 09-22-2023 permethrin Top 5% Crm 1 vicky, Topical, Once, 60 gram, Refill(s) 1, to skin head to feet, remove by washing after 8 to 14 hours, [facility], 180, cm, 02/01/22 11:53:00 EDT, Height/Length Dosing, 170.9, kg, 02/01/22 11:53:00 EDT, Weight Dosing Start Date: 09/22/23 Status: Ordered predniSONE 20 mg oral tablet (2 sources) Start: 04-11-2024 End: 04-16-2024 take 3 tablets by mouth once daily predniSONE 20 mg Tab 60 mg = 3 tab(s), Oral, Daily, X 5 day(s), # 15 tab(s), Refills(s) 0, Pharmacy: [facility], 180.3, cm, 04/11/24 16:28:00 EDT, Height/Length Dosing, 173, kg, 04/11/24 16:28:00 EDT, Weight Dosing Start Date: 04/11/24 Stop Date: 04/16/24 Status: Ordered Start: 03-04-2017 predniSONE 20 MG 1 tablet TID x 2 days, 1 tablet BID x 2 days, 1 tablet daily x 2 days, 1/2 tablet x 2 days, then stop Orally as directed for 8 days Feb, Active 0.25 mg, 0.5 mg dose 1.5 ml semaglutide 1.34 mg/ml pen injector (2 sources) Start: 11-27-2024 semaglutide (O zempic, 0.25 or 0.5 MG/DOSE,) 2 MG/1.5ML solution pen-injector Indications: Type 2 diabetes mellitus with hyperglycemia, without long-term current use of insulin ([facility]) 0.25 mg SC weekly x 4 weeks, then 0.5 mg weekly 1 each 3 11/27/2024 Active Start: 11-27-2024 semaglutide (O zempic, 0.25 or 0.5 MG/DOSE,) 2 MG/1.5ML solution pen-injector Indications: Type 2 diabetes mellitus with hyperglycemia, without long-term current use of insulin (CMS/HCC) 0.25 mg SC weekly x 4 weeks, then 0.5 mg weekly 1 each 3 11/27/2024 Active sertraline 25 mg oral tablet (2 sources) Serotonin Reuptake Inhibitor Start: 04-24-2024 take 1 tablet by mouth once daily sertraline (Zoloft) 25 MG tablet Indications: Major depressive disorder, recurrent episode, mild (HCC) (CMS/HCC) Take 1 tablet (25 mg) by mouth Daily 30 tablet 3 04/24/2024 Active Start: 04-24-2024 take 1 tablet by juliette th once daily sertraline (Zoloft) 25 MG tablet Indications: Major depressive disorder, recurrent episode, mild (HCC) (CMS/HCC) Take 1 tablet (25 mg) by mouth Daily 30 tablet 3 04/24/2024 Active traZODone hydrochloride 50 mg oral tablet (3 sources) Serotonin Reuptake Inhibitor Start: 09-17-2024 take 1 tablet by mouth at bedtime traZODone (Desyrel) 50 MG tablet Indications: Psychophysiological insomnia Take 1 tablet (50 mg) by mouth at bedtime 30 tablet 2 09/17/2024 Active 24 hr venlafaxine 75 mg extended release oral capsule (4 sources) Serotonin and Norepinephrine Reuptake Inhibitor Start: 11-07-2024 take 1 capsule by mouth once daily at mealtime venlafaxine XR (Effexor XR) 75 MG 24 hr capsule Indications: Major depressive disorder, recurrent episode, mild (HCC) (CMS/HCC) Take 1 capsule (75 mg) by mouth Daily Take with food. 30 capsule 3 11/07/2024 Active Start: 09-10-2024 take 1 capsule by mo [facility] once daily at mealtime venlafaxine XR (Effexor XR) 75 MG 24 hr capsule Indications: Major depressive disorder, recurrent episode, mild (HCC) (CMS/HCC) Take 1 capsule (75 mg) by mouth Daily Take with food. 30 capsule 3 09/10/2024 Active Completed/Discontinued Medications Medication Drug Class(es) Dates Sig (Normalized) Sig (Original) albuterol HFA 90 mcg/inh MDI (4 sources) Start: 04-13-2022 take 1 dose by inhalation four times daily albuterol HFA 90 mcg/inh MDI 2 puff(s), Inhalation, QID, 1 EA, Refill(s) 11, [id number], 180, cm, 02/01/22 11:53:00 EDT, Height/Length Dosing, 170.9, kg, 02/01/22 11:53:00 EDT, Weight Dosing Start Date: 04/13/22 Status: Ordered Start: 08-04-2021 take 1 dose by inhal ation four times daily albuterol HFA 90 mcg/inh MDI 2 puff(s), Inhalation, QID, 1 EA, Refill(s) 11, [id number], 180, cm, 08/04/21 13:28:00 EST, Height/Length Dosing, 182.9, kg, 08/04/21 13:28:00 EST, Weight Dosing Start Date: 08/04/21 Status: Ordered Breo Ellipta 200 mcg-25 mcg/inh inhalation powder (4 sources) Start: 02-01-2022 take 1 dose by inhalation once daily Breo Ellipta 200 mcg-25 mcg/inh inhalation powder 1 puff(s), Inhalation, Daily, 1 EA, Refill(s) 11, [id number], 180, cm, 02/01/22 11:53:00 EDT, Height/Length Dosing, 170.9, kg, 02/01/22 11:53:00 EDT, Weight Dosing Start Date: 02/01/22 Status: Ordered FLUoxetine 40 mg oral capsule (11 sources) Serotonin Reuptake Inhibitor Start: 09-05-2024 End: 09-10-2024 take 1 capsule by mouth once daily FLUoxetine (PROzac) 40 MG capsule Indications: Major depressive disorder, recurrent episode, mild (HCC) (CMS/HCC) Take 1 capsule (40 mg) by mouth Daily 30 capsule 5 09/05/2024 09/10/2024 Discontinued Start: 06-26-2024 take 1 capsule by [facility] once daily FLUoxetine (PROzac) 40 MG capsule Indications: Major depressive disorder, recurrent episode, mild (HCC) (CMS/HCC) Take 1 capsule (40 mg) by mouth Daily 30 capsule 5 06/26/2024 Active Start: 05-27-2024 End: 06-26-2024 take 1 capsule by mouth once daily FLUoxetine (PROzac) 20 MG capsule Indications: Major depressive disorder, recurrent episode, mild (HCC) (CMS/HCC) Take 1 capsule (20 mg) by mouth Daily 30 capsule 3 05/27/2024 06/26/2024 Discontinued (Reorder) potassium chloride 10 meq extended release oral capsule (4 sources) Start: 04-13-2022 take 1 capsule by mouth once daily as needed potassium chloride 10 mEq Cap-ER 10 mEq = 1 cap(s), Oral, Daily, PRN leg swelling, use when taking furosemide, # 30 cap(s), Refills(s) 5, Pharmacy: [facility] #[id number], 180, cm, 02/01/22 11:53:00 EDT, Height/Length Dosing, 170.9, kg, 02/01/22 11:53:00 EDT, Weight Dosing Start Date: 04/13/22 Status: Ordered Start: 12-15-2021 take 1 capsule by mo [facility] once daily as needed potassium chloride 10 mEq Cap-ER 10 mEq = 1 cap(s), Oral, Daily, PRN leg swelling, use when taking furosemide, # 30 cap(s), Refills(s) 5, [id number], cm, 08/04/21 13:28:00 EST, Height/Length Dosing, 182.9, kg, 08/04/21 13:28:00 EST, Weight Dosing Start Date: 12/15/21 Status: Ordered Problems Active Problems Problem Classification Problem Date Documented Date Episodic/Chronic Anxiety disorders (20 sources) Generalized anxiety disorder; Translations: [Generalized anxiety disorder] Onset: 03-13-2024 03-13-2024 Chronic Asthma (20 sources) Exacerbation of asthma; Translations: [Unspecified asthma with (acute) exacerbation] Onset: 02-01-2022 Chronic Diabetes mellitus with complications (20 sources) Hyperglycemia due to type 2 diabetes mellitus; Translations: [Type 2 diabetes mellitus with hyperglycemia] Onset: 03-14-2024 03-14-2024 Chronic Diabetes mellitus without complication (1 source) Type 2 diabetes mellitus without complications; Translations: [TYPE 2 DM WITHOUT COMPLICATIONS] Onset: 09-29-2022 Chronic Esophageal disorders (19 sources) Gastroesophageal reflux disease; Translations: [Gastro-esophageal reflux disease without esophagitis] Onset: 03-13-2024 03-13-2024 Chronic Miscellaneous mental health disorders (3 sources) Psychophysiologic insomnia; Translations: [Psychophysiologic insomnia] Onset: 09-17-2024 09-17-2024 Chronic Mood disorders (20 sources) Recurrent major depressive episodes, mild ; Translations: [Major depressive disorder, recurrent, mild] Onset: 03-13-2024 03-13-2024 Chronic Mycoses (1 source) Other urogenital candidiasis; Translations: [OTHER UROGENITAL CANDIDIASIS] Onset: 09-29-2022 Episodic Other circulatory disease (4 sources) Elevated blood-pressure reading without diagnosis of hypertension 12-18-2019 Episodic Other diseases of veins and lymphatics (4 sources) Venous insufficiency of leg 03-18-2020 Episodic Other male genital disorders (3 sources) Other specified disorders of penis; Translations: [OTHER SPECIFIED DISORDERS OF PENIS] Onset: 09-28-2022 Chronic Other nutritional; endocrine; and metabolic disorders (18 sources) Morbid obesity; Translations: [Morbid (severe) obesity due to excess calories] Onset: 03-13-2024 03-18-2020 Chronic Other nutritional; endocrine; and metabolic disorders (4 sources) Obesity 07-27-2018 Chronic Other nutritional; endocrine; and metabolic disorders (1 source) Obesity, unspecified; Translations: [OBESITY UNSPECIFIED] Onset: 09-29-2022 Chronic Other nutritional; endocrine; and metabolic disorders (1 source) Body mass index (BMI) 50.0-59.9, adult; Translations: [BODY MASS INDEX BMI 50.0-59.9 ADULT] Onset: 09-29-2022 Chronic Other nutritional; endocrine; and metabolic disorders (17 sources) Severe obesity; Translations: [Class 3 severe obesity due to excess calories with serious comorbidity and body mass index (BMI) of 50.0 to 59.9 in adult ([facility])] Onset: 03-13-2024 06-26-2024 Chronic Pneumonia (except that caused by tuberculosis or sexually transmitted disease) (4 sources) Pneumonia 07-27-2018 Episodic Residual codes; unclassified (4 sources) Tobacco user 12-18-2019 Episodic Residual codes; unclassified (1 source) Refused procedure - parent's wish; Translations: [Procedure and treatment not carried out because of patient's decision for other reasons] Onset: 04-11-2024 Episodic Respiratory failure; insufficiency; arrest (adult) (3 sources) Acute respiratory failure with hypoxia; Translations: [Acute respiratory failure] Onset: 04-11-2024 Episodic Spondylosis; intervertebral disc disorders; other back problems (4 sources) Backache 07-27-2018 Episodic Sprains and strains (1 source) Strain of muscle, fascia and tendon of lower back, initial encounter; Translations: [Strain of muscle, fascia and tendon of lower back, initial encounter] Onset: 07-06-2018 Episodic Substance-related disorders (4 sources) Nicotine dependence 02-03-2021 Chronic Past or Other Problems Problem Classification Problem Date Documented Da te Episodic/Chronic Immunizations and screening for infectious disease (1 source) Contact with and (suspected) exposure to other viral communicable diseases Onset: 1 Resolved: 1 Episodic Phlebitis; thrombophlebitis and thromboembolism (20 sources) Thrombophlebitis of superficial veins of lower extremity; Translations: [Phlebitis and thrombophlebitis of superficial vessels of left lower extremity] Onset: 4 03-13-2024 Episodic Residual codes; unclassified (19 sources) Edema of lower extremity; Translations: [Localized edema] Onset: 4 03-13-2024 Episodic Varicose veins of lower extremity (20 sources) Varicose veins of lower extremity; Translations: [Varicose veins of left lower extremity with other complications] Onset: 2 Episodic Results Test Name Value Interpretation Reference Range Facility CHEMISTRYOrdered By: Hilda Mas se on 06-26-2024 HbA1c (Bld) [Mass fraction] 8.7 % High <=5.9% [facility] [place] [facility] [id number] 06-26-2024 Interpretation and review of laboratory results Abnormal [facility] Original Ordering Provider: MD RASHID [facility]OVAL [facility] Health[facility] e [id number] 06-26-2024 HbA1c (Bld) [Mass fraction] 8.7 % High <=5.9 [facility] Comment on above: Performed By: #### [id number] #### [facility] [address] [place] [address] XR Chest Single Viewon 04-12 XR Chest Single View Exam Date/Time: 04/11/2024 17:26 EDT Reason for Exam: Shortness of breath (SOB) Report IMPRESSION: BILATERAL LUNG BASE INFILTRATE AND/OR ATELECTASIS. EXAM: XR Chest Single View History: Shortness of breath Technique: Portable AP view of the chest. Comparison: Findings: The cardiomediastinal silhouette is within normal limits. Patchy and linear bilateral lung base opacities. No pneumothorax or pleural effusion. No acute osseous abnormality. Ordering Provider: Fleipe Garcias FINAL REPORT Dictated: 04/12/2024 8:29 am Roger Godinez DO Signed (Electronic Signature): 04/12/2024 8:29 am Signed by: Roger Godinez DO Transcribed by: KAREN Technologist: PRANEETH Technical Comments Radiation Dose: Ka,r in mGy = na DAP = na Wet Read 04/12/2024 08:29 am EDT, Roger Godinez DO, DISAGREE Bilateral lung base infiltrate and/or atelectasis Normal [facility] BMPon 04-11-2024 Anion gap [Moles/Vol] 12 mmol/L Normal 6-16 [facility] Comment on above: Performed By: #### [id number] #### [facility] [address] [place] [address] Calcium [Mass/Vol] 8.9 mg/dL Normal 8.9-11.1 [facility] Comment on above: Performed By: #### 2 [id number] #### [facility] [address] [place] [address] Chloride [Moles/Vol] 101 mmol/L Normal 101-111 [facility] Comment on above: Performed By: #### 2 [id number] #### [facility] [address] [place] [address] CO2 [Moles/Vol] 24 mmol/L Normal 21-31 [facility] Comment on above: Performed By: #### 2 [id number] #### [facility] [address] [place] [address] Creatinine [Mass/Vol] 0.9 mg/dL Normal 0.5-1.3 [facility] Comment on above: Performed By: #### 2 [id number] #### [facility] [address] [place] [address] Glucose [Mass/Vol] 305 mg/dL High 55-199 [facility] Comment on above: Performed By: #### 2 [id number] #### [facility] [address] [place] [address] Potassium [Moles/Vol] 3.9 mmol/L Normal 3.5-5.3 [facility] Comment on above: Performed By: #### 2 [id number] #### [facility] [address] [place] [address] Sodium [Moles/Vol] 133 mmol/L Low 135-145 [facility] Comment on above: Performed By: #### 2 [id number] #### [facility] [address] [place] [address] Urea nitrogen [Mass/Vol] 14 mg/dL Normal 5-21 [facility] Comment on above: Performed By: #### 2 [id number] #### [facility] [address] [place] [address] Urea nitrogen/Creatinine [Mass ratio] 16 No Units Normal 10-20 [facility] Comment on above: Performed By: #### 2 [id number] #### [facility] [address] [place] [address] CBC w/ Auto Diffon 4 Basophils/100 WBC (Bld) 0.9 % Normal 0.0-2.0 [facility] Comment on above: Performed By: #### 2 [id number] #### [facility] [address] [place] [address] Basophils/Leukocytes Auto (Bld) [Pure # fraction] 0.1 E9/L Normal 0.0-0.2 [facility] Comment on above: Performed By: #### 2 [id number] #### [facility] [address] [place] [address] Eosinophils (Bld) [#/Vol] 0.3 E9/L Normal 0.0-0.5 [facility] Comment on above: Performed By: #### 2 [id number] #### [facility] [address] [place] [address] Eosinophils/100 WBC (Bld) 2.9 % Normal 0.0-8.0 [facility] Comment on above: Performed By: #### 2 [id number] #### [facility] [address] [place] [address] Erythrocyte distribution width (RBC) [Ratio] 13.9 % Normal 10.9-14.2 [facility] Comment on above: Performed By: #### 2 [id number] #### [facility] [address] [place] [address] Hematocrit (Bld) [Volume fraction] 45.5 % Normal 37.7-49.0 [facility] Comment on above: Performed By: #### 2 [id number] #### [facility] [address] [place] [address] Hemoglobin (Bld) [Mass/Vol] 15.2 g/dL Normal 13.5-17.5 [facility] Comment on above: Performed By: #### 2 [id number] #### [facility] [address] [place] [address] Lymphocytes (Bld) [#/Vol] 1.9 E9/L Normal 1.0-4.0 [facility] Comment on above: Performed By: #### 2 [id number] #### [facility] [address] [place] [address] Lymphocytes/100 WBC (Bld) 20.2 % Normal 14.0-50.0 [facility] Comment on above: Performed By: #### 2 [id number] #### [facility] [address] [place] [address] MCH (RBC) [Entitic mass] 28.3 pg Normal 27.0-34.0 [facility] Comment on above: Performed By: #### 2 [id number] #### [facility] [address] [place] [address] MCHC (RBC) [Mass/Vol] 33.4 g/dL Normal 31.4-36.0 [facility] Comment on above: Performed By: #### 2 [id number] #### [facility] [address] [place] [address] MCV (RBC) [Entitic vol] 84.6 fL Normal 80.0-100.0 [facility] Comment on above: Performed By: #### 2 [id number] #### [facility] [address] [place] [address] Monocytes (Bld) [#/Vol] 0.7 E9/L Normal 0.2-1.0 [facility] Comment on above: Performed By: #### 2 [id number] #### [facility] [address] [place] [address] Neutrophils (Bld) [#/Vol] 6.4 E9/L Normal 2.0-7.5 [facility] Comment on above: Performed By: #### 2 [id number] #### [facility] [address] [place] [address] Neutrophils/100 WBC (Bld) 68.4 % Normal 36.0-75.0 [facility] Comment on above: Performed By: #### 2 [id number] #### [facility] [address] [place] [address] Platelet mean volume (Bld) [Entitic vol] 9.1 fL Normal 6.4-10.8 [facility] Comment on above: Performed By: #### 2 [id number] #### [facility] [address] [place] [address] Platelets (Bld) [#/Vol] 186.0 E9/L Normal 150.0-500.0 [facility] Comment on above: Performed By: #### 2 [id number] #### [facility] [address] [place] [address] RBC (Bld) [#/Vol] 5.4 E12/L Normal 4.3-5.9 [facility] Comment on above: Performed By: #### 2 [id number] #### [facility] [address] [place] [address] WBC corrected for nucl RBC Auto (Bld) [#/Vol] 9.4 E9/L Normal 4.0-11.0 [facility] Comment on above: Performed By: #### 2 [id number] #### [facility] [address] [place], [place] [id number] CHEMISTRYOrdered By: SYSTEM SYSTEM on 04-11-2024 Anion gap [Moles/Vol] 12 mmol/L Normal 6 - 16 mEq/L R emisol Chem Calcium [Mass/Vol] 8.9 mg/dL Normal 8.9 - 11. 1 mg/dL [facility] Chloride [Moles/Vol] 101 mmol/L Normal 101 - 1 11 mmol/L [facility] CO2 [Moles/Vol] 24 mmol/L Normal 21 - 31 mmol/L [facility] Creatinine [Mass/Vol] 0.9 mg/dL Normal 0.5 - 1.3 mg/dL [facility] eGFR 120 mL/min/1.73 m2 Normal >=59mL/mi n/1 .73 m2 [facility] Glucose [Mass/Vol] 305 mg/dL High 55 - 199 mg/dL [facility] Potassium [Moles/Vol] 3.9 mmol/L Normal 3.5 - 5.3 mmol/L [facility] Sodium [Moles/Vol] 133 mmol/L Low 135 - 145 mmol/L [facility] Urea nitrogen [Mass/Vol] 14 mg/dL Normal 5 - 21 mg/dL [facility] Urea nitrogen/Creatinine [Mass ratio] 16 mg/mg Normal 10 - 20 [facility] ED Clinical Summaryon 2023 ED Clinical Summary ED Clinical Summary [address] [address] ED Clinical Summary Person Information Name: EARL SHAFFER [place] Age: 29 Years : 1995 Sex: Male Language: Mongolian PCP: RASHID MCKEON MD Marital Status: Single Visit Id: Visit Reason: Cough; Shortness of breath; Sinus Pain/Congestion; CONGESTED/SOB Speciality: Acuity: 1 Enc Type: Inpatient Med Service: Medical Arrival: 04/11/2024 15:50:26 Discharge: 04/11/2024 19:40:00 LOS: 000 03:50 Checkin: 04/11/2024 15:50:26 Checkout: 04/11/2024 19:40:00 Dispo Type: Left Against Medical Advice EVENTS: Event Name Event Status Request Date/Time Start Date/Time Complete Date/Time Arrive Complete 04/11/2024 15:50:26 04/11/2024 15:50:26 04/11/2024 15:50:26 Document Home Meds Request 04/11/2024 15:50:26 Triage Complete 04/11/2024 15:50:26 04/11/2024 16:28:57 04/11/2024 16:28:57 Registration Complete 04/11/2024 15:54:31 04/11/2024 15:54:31 04/11/2024 15:54:31 Reg Complete Request 04/11/2024 15:54:31 Reg Bed Request Complete 04/11/2024 15:54:31 04/11/2024 15:54:31 04/11/2024 15:54:31 EKG Complete 04/11/2024 16:25:16 04/11/2024 16:33:48 Bed Assign Complete 04/11/2024 16:30:15 04/11/2024 16:30:15 04/11/2024 16:30:15 Dr Exam Complete 04/11/2024 16:30:15 04/11/2024 16:31:41 04/11/2024 16:31:41 RN Exam Complete 04/11/2024 16:30:15 04/11/2024 16:48:15 04/11/2024 16:48:15 Meds Admin Complete 04/11/2024 16:31:17 04/11/2024 16:47:49 RT Tx/ABG Complete 04/11/2024 16:31:17 04/11/2024 18:20:51 04/11/2024 18:20:51 RT Tx/ABG Complete 04/11/2024 16:31:18 04/11/2024 18:20:55 04/11/2024 18:20:55 Registration Start 04/11/2024 16:31:41 04/11/2024 18:19:03 Pending Labs Complete 04/11/2024 16:39:57 04/11/2024 17:16:46 Lab Complete 04/11/2024 16:39:57 04/11/2024 17:16:46 X-Ray Complete 04/11/2024 16:39:57 04/11/2024 16:53:45 04/11/2024 17:26:28 Meds Admin Complete 04/11/2024 16:45:14 04/11/2024 16:52:48 RT Tx/ABG Complete 04/11/2024 16:45:15 04/11/2024 18:21:09 04/11/2024 18:21:09 RT Tx/ABG Complete 04/11/2024 16:45:15 04/11/2024 18:20:58 04/11/2024 18:20:58 Pending Labs Complete 04/11/2024 16:53:56 04/11/2024 16:53:56 04/11/2024 17:16:46 Lab Complete 04/11/2024 16:53:56 04/11/2024 16:53:56 04/11/2024 17:16:46 Pending Labs Complete 04/11/2024 17:09:17 04/11/2024 17:09:17 04/11/2024 17:09:18 Wet Read Request 04/11/2024 17:26:28 Meds Admin Complete 04/11/2024 17:35:58 04/11/2024 17:51:41 Admit Request 04/11/2024 18:19:02 Patient Care Request 04/11/2024 18:19:03 Patient Care Request 04/11/2024 18:19:03 Patient Care Request 04/11/2024 18:19:04 Patient Care Request 04/11/2024 18:19:04 Patient Care Request 04/11/2024 18:19:05 Patient Care Request 04/11/2024 18:19:05 Discharge Complete 04/11/2024 19:02:07 04/11/2024 19:49:31 04/11/2024 19:49:31 Meds Admin Request 04/11/2024 19:05:08 RT Tx/ABG Request 04/11/2024 19:05:09 RT Tx/ABG Request 04/11/2024 19:05:09 RT Tx/ABG Request 04/11/2024 19:05:09 RT Tx/ABG Request 04/11/2024 19:05:09 Meds Admin Complete 04/11/2024 19:05:36 04/11/2024 19:24:09 Transfer Complete 04/11/2024 19:49:31 04/11/2024 19:49:31 04/11/2024 19:49:31 ADDRESS: [facility] [place] [place] [id number] PHYS DOC NOTES: MEDICAL INFORMATION: Prescriptions Given: New Medications [facility], [address] [place], [place] [id number], [phone] albuterol (Albuterol (Eqv-ProAir HFA) 90 mcg/inh inhalation aerosol) 2 Puffs Inhalation every 4 hours as needed Cough and Congestion. Refills: 0. albuterol-ipratropiu m (DuoNeb 2.5 mg-0.5 mg/3 mL Soln-Inh) 3 Milliliter Inhalation every 6 hours as needed Shortness of breath or wheezing. Refills: 0. predniSONE (predniSONE 20 mg Tab) 3 Tablets By Mouth every day for 5 Days. Refills: 0. PATIENT EDUCATION INFORMATION: Instructions: Asthma, Adult; Hypoxia; Acute Respiratory Failure, Adult Follow up: With: Address: When: RASHID MCKEON [facility] [place] [place] [phone] Business (1) In 3 days 04/14/2024 Comments: Call the office of your primary care doctor to arrange for follow-up within the above-stated timeframe. Follow-up with your primary care doctor about this ED visit. You should review your labs, imaging, and diagnoses from this ED visit with your primary care physician. There are occasionally non-emergent findings that require additional follow-up after your ED visit. If you were prescribed medications you should discuss possible side-effects and drug interactions with your pharmacist. Call 911 or go to the nearest Emergency Department if you develop any new or worsening symptoms. Seek immediate medical attention if you develop: worsening shortness of breath, difficulty breathing, chest pain, nausea, vomiting, weakness, numbness, tingling, excessive sweating, loss of motion in your arms or legs, or any new or worsening symptoms. There are no hard feelings for you leaving AGAINST MEDICAL ADVICE. (more content not included)... Normal [facility] ED Note-Nursingon 04-11-2024 ED Note-Nursing ED Note-Nursing Pt discussed with Dr. Garcias wanting to leave hospital and not stay the night. Pt educated on risks of leaving AMA. Pt continues to state the desire to leave. AMA paperwork signed. Normal [facility] ED Note-Physicianon 04-11-20 ED Note-Physician ED Note-Physician Basic Information Time Seen: Felipe Garcias DO LeleNic 04/11/2024 16:31 Chief Complaint pt c/o congestion for 3 days and pt c/o shortness of breath about 5-6 hrs ago. pt used inhaler with no relief. hx of asthma. dry non productive cough. History of Present Illness 29-year-old male to the emergency department with chief complaint of shortness of breath. Patient reports he recently had upper respiratory infection. He has a history of asthma. He reports he has a nonproductive cough. Denies any fever, sweats, chills. He has been using his inhaler at home with only mild relief of symptoms. He has a history of asthma, occasionally severe. He has been intubated in the ICU before. Review of Systems A 10 point review of systems is negative except as noted above. Medical and Surgical History: Reviewed and noted Social history: Lives at home Tobacco: Denies Physical Exam Vitals & Measurements T: 37.2 ?C(Oral) HR: 117(Monitored) RR: 20 BP: 115/85 SpO2: 94% HT: 180.3 cm WT: 173.0 kg BMI: 53.22 VITALS: I have reviewed the triage vital signs. GENERAL: Severe morbid obesity. Moderate respiratory distress. NEURO: Alert and oriented. Moves all extremities. Face is symmetric and expressive. EYES: PERRL. No scleral icterus or conjunctival injection. No discharge. HENT: Normocephalic, atraumatic. Hearing is grossly intact. Nares grossly patent and without discharge. Mucous membranes moist. NECK: No JVD. Patient moves neck without restriction. CARDIO: Rhythm regular. Normal rate. No murmur, rub, or gallop. Pulses equal bilaterally in the upper and lower extremity. No lower extremity edema. PULM: Decreased air movement. Conversational dyspnea. Increased work of breathing. Diffuse wheezing. GI/: Abdomen is soft and non-tender. Normoactive bowel sounds. EXTREMITIES: Symmetric muscle bulk. No joint swelling. No clubbing, cyanosis, or deformity. SKIN: Warm and dry. Normal turgor. No rash or lesions appreciated. PSYCH: Mood, affect, and interaction is appropriate to the setting. Procedure Critical Care Procedure Note Authorized and Performed by: Felipe Garcias DO Total critical care time: 32 min Due to a high probability of clinically significant, life threatening deterioration, the patient required my highest level of preparedness to intervene emergently and I personally spent this critical care time directly and personally managing the patient. This critical care time included obtaining a history; examining the patient; pulse oximetry; ordering and review of studies; arranging urgent treatment with development of a management plan; evaluation of patient's response to treatment; frequent reassessment; and, discussions with other providers. This critical care time was performed to assess and manage the high probability of imminent, life-threatening deterioration that could result in multi-organ failure. It was exclusive of separately billable procedures and treating other patients and teaching time. Please see MDM section and the rest of the note for further information on patient assessment and treatment. Medical Decision Making 29-year-old male to the emergency department with what appears to be severe asthma exacerbation. He is hypoxic on room air requiring 2 L nasal cannula. Stacked DuoNebs, Solu-Medrol ordered. Basic labs, x-ray. Patient agrees with this plan. CBC and chemistry are unremarkable. He has nonfasting hyperglycemia. Chest x-ray without significant abnormality. EKG without evidence of ischemia. Patient did improve significantly with his breathing treatments but remains on 2 L nasal cannula. Given his history of severe asthma, oxygen requirement, comorbid severe obesity I recommended admission for the patient. He is in agreement. I was called to the bedside by nursing staff as the patient was about to be wheeled up to the floor he reports that he does not want to be admitted anymore. Patient reports that he does not want bills from admission. I discussed with the patient the severe nature of his condition. Fact that he is in respiratory failure and requiring oxygen. Discussed that this is not something that can be rapidly provided to him for home at this hour and he needs to stay the night. We discussed his high risk for decompensation. We discussed that he could potentially or become seriously injured should he become hypoxic. We discussed that if he became confused he may not be able to call for help if he needed it. Patient accepts these risks. He would like to leave against my advice. A dose of dexamethasone was given to cover him for the next 24 hours. 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 He is given albuterol inhaler as well as a DuoNeb prescription. He is given prednisone prescription. He is instructed that he may return at any time to continue his care and he should. The patient left AGAINST MEDICAL ADVICE. Assessment/Plan Acute asthma exacerbation, (J45.901: Unspecified asthma with (acute) e (more content not included)... Normal [facility] Comment on above: Result Comment: Elec tronically Signed By: Felipe Garcias DO\.br\Date and Time Signed: 04/11/24 19:44 EDT ED Patient Summaryon 024 ED Patient Summary ED Patient Summary [place] [address] Patient Discharge Instructions Person Information Name: EARL SHAFFER Age: 29 Years Arrival Date: 04/11/2024 15:50:26 Discharge Diagnosis: Acute asthma exacerbation; Acute hypoxemic respiratory failure; Left against medical advice Primary Care Physician: RASHID MCKEON MD Provider Information Primary Provider: Felipe Garcias DO [employer]:None The exam and treatment you received in the Emergency Department were for an urgent problem and are not intended as complete care. It is important that you follow up with a doctor, nurse practitioner, or physician?s physician office assistant for ongoing care. If your symptoms become worse or you do not improve as expected and you are unable to reach your usual health care provider, you should return to the Emergency Department. We are available 24 hours a day. SANTIEARL PILLAI has been given the following list of patient education materials, prescriptions and follow-up instructions: Follow-up Instructions: With: Address: When: RASHID MCKEON [address] [place], [place] [phone] Business (1) In 3 days 04/14/2024 Comments: Call the office of your primary care doctor to arrange for follow-up within the above-stated timeframe. Follow-up with your primary care doctor about this ED visit. You should review your labs, imaging, and diagnoses from this ED visit with your primary care physician. There are occasionally non-emergent findings that require additional follow-up after your ED visit. If you were prescribed medications you should discuss possible side-effects and drug interactions with your pharmacist. Call 911 or go to the nearest Emergency Department if you develop any new or worsening symptoms. Seek immediate medical attention if you develop: worsening shortness of breath, difficulty breathing, chest pain, nausea, vomiting, weakness, numbness, tingling, excessive sweating, loss of motion in your arms or legs, or any new or worsening symptoms. There are no hard feelings for you leaving AGAINST MEDICAL ADVICE. You may return to continue your care at any time. Use a breathing treatment every 4 hours. Take steroids as prescribed. In the event that this physician does not participate in your insurance network, please consult with your insurance company to find a nearby participating provider. Patient Education Materials: Asthma, Adult; Hypoxia; Acute Respiratory Failure, Adult A MESSAGE TO ALL PATIENTS REGARDING OPIOIDS PRESCRIPTION OPIOIDS: WHAT YOU NEED TO KNOW Prescription opioids can be used to help relieve axavthbh-hg-nhtdwg pain and are often prescribed following a surgery or injury, or for certain health conditions. These medications can be an important part of the treatment but also come with serious risks. It is important to work with your healthcare provider to make sure you are getting the safest, most effective care. WHAT ARE THE RISKS AND SIDE EFFECTS OF OPIOID USE? Prescription opioids carry serious risks of addiction and overdose, especially with prolonged use. An opioid overdose, often marked by slowed breathing, can cause sudden . The use of prescription opioids can have a number of side effects as well, even when taken as directed: ? Tolerance?meaning you might need to take more of the medication for the same pain relief ? Physical dependence?meaning you have symptoms of withdrawal when a medication is stopped ? Increased sensitivity to pain ? Constipation ? Nausea, vomiting, and dry mouth ? Sleepiness and dizziness ? Confusion ? Depression ? Low levels of testosterone that can result in lower sex drive, energy, and strength ? Itching and sweating RISKS ARE GREATER WITH: ? History of drug misuse, substance use disorder, or overdose ? Mental health conditions (such as depression or anxiety) ? Sleep apnea ? Older age (65 years and older) ? Avoid alcohol while taking prescription opioids. Also, unless specifically advised by your health care provider, medications to avoid include: ? Benzodiazepines (such as Xanax or Valium) ? Muscle relaxants (such as Soma or Flexeril) ? Hypnotics (such as Ambien or Lunesta) ? Other prescription opioids KNOW YOUR OPTIONS Talk to your health care provider about ways to manage your pain that don?t involve prescription opioids. Some of these options may actually work better and have fewer risks and side effects. Options may include: ? Pain relievers such as acetaminophen, ibuprofen, and naproxen ? Some medication that are also used for depression or seizures ? Physical therapy and exercise ? Cognitive behavioral therapy, a psychological, goal-directed approach, in which patients learn how to modify physical, behavioral, and emotional triggers of pain and stress. IF YOU ARE P (more content not included)... Normal [facility] Extra Blueon 04-11-2024 Tube Collected Plasma Yes Invalid Interpretation Code [facility] Comment on above: Performed By: #### 1 [id number] #### [facility] [address] [place] [address] HEMATOLOGYOrdered By: SYSTEM SYSTEM on 04-11-2024 Basophils/100 WBC (Bld) 0.9 % Normal 0.0 - 2.0 % Remisol Heme Basophils/Leukocytes Auto (Bld) [Pure # fraction] 0.1 E9/L Normal 0.0 - 0.2 E9/L Remisol Heme Eosinophils (Bld) [#/Vol] 0.3 E9/L Normal 0.0 - 0.5 E9/L Remisol Heme Eosinophils/100 WBC (Bld) 2.9 % Normal 0.0 - 8.0 % Remisol Heme Erythrocyte distribution width (RBC) [Ratio] 13.9 % Normal 10.9 - 14.2 % Remisol Heme Hematocrit (Bld) [Volume fraction] 45.5 % Normal 37.7 - 49.0 % Remisol Heme Hemoglobin (Bld) [Mass/Vol] 15.2 g/dL Normal 13.5 - 17.5 gm/dL Remisol Heme Lymphocytes (Bld) [#/Vol] 1.9 E9/L Normal 1.0 - 4.0 E9/L Remisol Heme Lymphocytes/100 WBC (Bld) 20.2 % Normal 14.0 - 50.0 % Remisol Heme MCH (RBC) [Entitic mass] 28.3 pg Normal 27.0 - 34.0 pg Remisol Heme MCHC (RBC) [Mass/Vol] 33.4 g/dL Normal 31.4 - 36.0 gm/dL Remisol Heme MCV (RBC) [Entitic vol] 84.6 fL Normal 80.0 - 100.0 fL Remisol Heme Monocytes (Bld) [#/Vol] 0.7 E9/L Normal 0.2 - 1.0 E9/L Remisol Heme Monocytes/100 WBC (Bld) 7.6 % Normal 4.0 - 14.0 % Remisol Heme Neutrophils (Bld) [#/Vol] 6.4 E9/L Normal 2.0 - 7.5 E9/L Remisol Heme Neutrophils/100 WBC (Bld) 68.4 % Normal 36.0 - 75.0 % Remisol Heme Platelet mean volume (Bld) [Entitic vol] 9.1 fL Normal 6.4 - 10.8 fL Remisol Heme Platelets (Bld) [#/Vol] 186.0 E9/L Normal 150.0 - 500.0 E9/L Remisol Heme RBC (Bld) [#/Vol] 5.4 E12/L Normal 4.3 - 5.9 E12/L Remisol Heme WBC corrected for nucl RBC Auto (Bld) [#/Vol] 9.4 E9/L Normal 4.0 - 11.0 E9/L Remisol Heme eGFRon 04-11-2024 eGFR 120 mL/min/1.73 m2 Normal >=59 [facility] Comment on above: Performed By: #### 1 [id number] #### [facility] [address] [place] [address] BMPon 03-14-2024 Anion gap [Moles/Vol] 10 mmol/L Normal 6-16 [facility] Comment on above: Performed By: #### 2 [id number] #### [facility] [address] [place] [address] Calcium [Mass/Vol] 8.7 mg/dL Low 8.9-11.1 [facility] Comment on above: Performed By: #### 2 [id number] #### [facility] [address] [place] [address] Chloride [Moles/Vol] 98 mmol/L Low 101-111 [facility] Comment on above: Performed By: #### 2 [id number] #### [facility] [address] [place] [address] CO2 [Moles/Vol] 28 mmol/L Normal 21-31 [facility] Comment on above: Performed By: #### 2 [id number] #### [facility] Laboratory [address] [place] [address] Creatinine [Mass/Vol] 0.9 mg/dL Normal 0.5-1.3 [facility] Comment on above: Performed By: #### 2 [id number] #### [facility] [address] [place] [address] Glucose [Mass/Vol] 338 mg/dL High 55-199 [facility] Comment on above: Performed By: #### 2 [id number] #### [facility] [address] [place] [address] Potassium [Moles/Vol] 4.2 mmol/L Normal 3.5-5.3 [facility] Comment on above: Performed By: #### 2 [id number] #### [facility] [address] [place] [address] Sodium [Moles/Vol] 132 mmol/L Low 135-145 [facility] Comment on above: Performed By: #### 2 [id number] #### [facility] [address] [place] [address] Urea nitrogen [Mass/Vol] 13 mg/dL Normal 5-21 [facility] Comment on above: Performed By: #### 2 [id number] #### [facility] [address] [place] [address] Urea nitrogen/Creatinine [Mass ratio] 14 No Units Normal 10-20 [facility] Comment on above: Performed By: #### 2 [id number] #### [facility] [address] [place] [address] CBC w/ Auto Diffon 4 Basophils/100 WBC (Bld) 0.9 % Normal 0.0-2.0 [facility] Comment on above: Performed By: #### 2 [id number] #### [facility] [address] [place] [address] Basophils/Leukocytes Auto (Bld) [Pure # fraction] 0.1 E9/L Normal 0.0-0.2 [facility] Comment on above: Performed By: #### 2 [id number] #### [facility] [address] [place] [address] Eosinophils (Bld) [#/Vol] 0.2 E9/L Normal 0.0-0.5 [facility] Comment on above: Performed By: #### 2 [id number] #### [facility] [address] [place] [address] Eosinophils/100 WBC (Bld) 2.7 % Normal 0.0-8.0 [facility] Comment on above: Performed By: #### 2 [id number] #### [facility] [address] [place] [address] Erythrocyte distribution width (RBC) [Ratio] 13.9 % Normal 10.9-14.2 [facility] Comment on above: Performed By: #### 2 [id number] #### [facility] [address] [place] [address] Hematocrit (Bld) [Volume fraction] 45.9 % Normal 37.7-49.0 [facility] Comment on above: Performed By: #### 2 [id number] #### [facility] [address] [place] [address] Hemoglobin (Bld) [Mass/Vol] 15.4 g/dL Normal 13.5-17.5 [facility] Comment on above: Performed By: #### 2 [id number] #### [facility] [address] [place] [address] Lymphocytes (Bld) [#/Vol] 2.5 E9/L Normal 1.0-4.0 [facility] Comment on above: Performed By: #### 2 [id number] #### [facility] [address] [place] [address] Lymphocytes/100 WBC (Bld) 27.6 % Normal 14.0-50.0 [facility] Comment on above: Performed By: #### 2 [id number] #### [facility] [address] [place] [address] MCH (RBC) [Entitic mass] 28.7 pg Normal 27.0-34.0 [facility] Comment on above: Performed By: #### 2 [id number] #### [facility] [address] [place] [address] MCHC (RBC) [Mass/Vol] 33.6 g/dL Normal 31.4-36.0 [facility] Comment on above: Performed By: #### 2 [id number] #### [facility] [address] [place] [address] MCV (RBC) [Entitic vol] 85.5 fL Normal 80.0-100.0 [facility] Comment on above: Performed By: #### 2 [id number] #### [facility] [address] [place] [address] Monocytes (Bld) [#/Vol] 0.5 E9/L Normal 0.2-1.0 [facility] Comment on above: Performed By: #### 2 [id number] #### [facility] [address] [place] [address] Neutrophils (Bld) [#/Vol] 5.7 E9/L Normal 2.0-7.5 [facility] Comment on above: Performed By: #### 2 [id number] #### [facility] [address] [place] [address] Neutrophils/100 WBC (Bld) 62.9 % Normal 36.0-75.0 [facility] Comment on above: Performed By: #### 2 [id number] #### [facility] [address] [place] [address] Platelet mean volume (Bld) [Entitic vol] 8.6 fL Normal 6.4-10.[address] [facility] are Comment on above: Performed By: #### 2 [id number] #### [facility] [address] [place] [address] Platelets (Bld) [#/Vol] 209.0 E9/L Normal 150.0-500.0 [facility] Comment on above: Performed By: #### 2 [id number] #### [facility] [address] [place] [address] RBC (Bld) [#/Vol] 5.4 E12/L Normal 4.3-5.9 [facility] Comment on above: Performed By: #### 2 [id number] #### [facility] [address] [place] [address] WBC corrected for nucl RBC Auto (Bld) [#/Vol] 9.1 E9/L Normal 4.0-11.0 [facility] Comment on above: Performed By: #### 2 [id number] #### [facility] [address] [place] [address] CHEMISTRYOrdered By: SYSTEM SYSTEM on 03-14-2024 Albumin [Mass/Vol] 3.9 g/dL Normal 3.3 - 5.0 gm/dL [facility] Albumin/Globulin [Mass ratio] 1.1 {ratio} Normal 1.1 - 2.2 [facility] ALP [Catalytic activity/Vol] 61 [iU]/d Normal 21 - 98 Int._Unit/L [facility] ALT No additional P-5'-P [Catalytic activity/Vol] 26 [iU]/d Normal 6 - 46 Int._Unit/L [facility] Anion gap [Moles/Vol] 10 mmol/L Normal 6 - 16 mEq/L [facility] AST [Catalytic activity/Vol] 20 [iU]/d Normal 5 - 43 Int._Unit/L [facility] Bilirubin [Mass/Vol] 1.1 mg/dL Normal 0.0 - 1 .1 mg/dL [facility] Bilirubin.direct [Mass/Vol] 0.2 mg/dL Normal 0.0 - 0.4 mg/dL [facility] Bilirubin.indirect [Mass or moles/Vol] 0.9 mg/dL Normal 0.1 - 0.9 mg/dL [facility] Calcium [Mass/Vol] 8.7 mg/dL Low 8.9 - 11. 1 mg/dL [facility] Chloride [Moles/Vol] 98 mmol/L Low 101 - 1 11 mmol/L [facility] Cholesterol [Mass/Vol] 126 mg/dL Normal 120 - 200 mg/dL [facility] Cholesterol in HDL [Mass/Vol] 28 mg/dL Invalid Interpretation Code [facility] Comment on above: Result Comment: '>= 60 LOW RISK' '<= 40 HIGH RISK' Cholesterol in LDL [Mass/Vol] 97 mg/dL Normal <=129mg/dL [facility] Cholesterol in VLDL [Mass/Vol] 27 mg/dL Normal 7 - 40 mg/dL [facility] CO2 [Moles/Vol] 28 mmol/L Normal 21 - 31 mmol/L [facility] Creatinine [Mass/Vol] 0.9 mg/dL Normal 0.5 - 1.3 mg/dL [facility] eGFR 120 mL/min/1.73 m2 Normal >=59mL/mi n/1 .73 m2 [facility] Globulin (S) [Mass/Vol] 3.6 g/dL Normal 1.4 - 4.0 gm/dL [facility] Glucose [Mass/Vol] 338 mg/dL High 55 - 199 mg/dL [facility] Potassium [Moles/Vol] 4.2 mmol/L Normal 3.5 - 5.3 mmol/L [facility] Protein [Mass/Vol] 7.5 g/dL Normal 6.0 - 7.8 gm/dL [facility] Sodium [Moles/Vol] 132 mmol/L Low 135 - 145 mmol/L [facility] Triglyceride [Mass/Vol] 136 mg/dL Normal <=149mg/dL [facility] TSH Qn 0.42 m[IU]/L Normal 0.34 - 5.60 mcIU/mL [facility] Urea nitrogen [Mass/Vol] 13 mg/dL Normal 5 - 21 mg/dL [facility] Urea nitrogen/Creatinine [Mass ratio] 14 mg/mg Normal 10 - 20 [facility] CHEMISTRYOrdered By: Jose Antonio Briscoe on 03-14-2024 HbA1c (Bld) [Mass fraction] 9.9 % High <=5.9% [facility]Auto[facility] [place] W/ AUTO DIFFon EOSINOPHILS/100 LEUKOCYTES:NFR:PT:BLD :QN:AUTOMATED COUNT 2.7 % 0.0 - 8.0 % [facility] are EOSINOPHILS:NCNC:PT:B LD:QN: 0.2 [facility] BASOPHILS/LEUKOCYTES: NFR.DF:PT:BLD:QN:AUTO MATED COUNT 0.1 [facility] ERYTHROCYTE MEAN CORPUSCULAR HEMOGLOBIN CONCENTRATION:MCNC:PT :RBC:QN 33.6 [facility] ERYTHROCYTE MEAN CORPUSCULAR HEMOGLOBIN:ENTMASS:PT :RBC:QN 28.7 pg 27.0 - 34.0 pg [facility] ERYTHROCYTE MEAN CORPUSCULAR VOLUME:ENTVOL:PT:RBC: QN:AUTOMATED COUNT 85.5 fL 80.0 - 100.0 fL [facility] ERYTHROCYTES:NCNC:PT: BLD:QN:AUTOMATED COUNT 5.4 [facility] HEMOGLOBIN:MCNC:PT:BL D:QN: 15.4 [facility] LEUKOCYTES 9.1 [facility] MONOCYTES:NCNC:PT:BLD :QN:AUTOMATED COUNT 0.[address] [facility] are [facility] NEUTROPHILS:NCNC:PT:B LD:QN:AUTOMATED COUNT 5.7 [facility] PLATELETS:NCNC:PT:BLD :QN:AUTOMATED COUNT 209.[address] [facility] are LYMPHOCYTES:NCNC:PT:B LD:QN: 2.5 [facility] Original Ordering Provider: MD RASHID SANDOVAL [facility] HEMATOLOGYOrdered By: Cleo Mackey on 03-14-2024 Basophils/100 WBC (Bld) 0.9 % Normal 0.0 - 2.0 % [facility] Basophils/Leukocytes Auto (Bld) [Pure # fraction] 0.1 E9/L Normal 0.0 - 0.2 E9/L [facility] Eosinophils (Bld) [#/Vol] 0.2 E9/L Normal 0.0 - 0.5 E9/L [facility] Eosinophils/100 WBC (Bld) 2.7 % Normal 0.0 - 8.0 % [facility] Erythrocyte distribution width (RBC) [Ratio] 13.9 % Normal 10.9 - 14.2 % [facility] Hematocrit (Bld) [Volume fraction] 45.9 % Normal 37.7 - 49.0 % [facility] Hemoglobin (Bld) [Mass/Vol] 15.4 g/dL Normal 13.5 - 17.5 gm/dL [facility] Lymphocytes (Bld) [#/Vol] 2.5 E9/L Normal 1.0 - 4.0 E9/L [facility] Lymphocytes/100 WBC (Bld) 27.6 % Normal 14.0 - 50.0 % [facility] MCH (RBC) [Entitic mass] 28.7 pg Normal 27.0 - 34.0 pg [facility] MCHC (RBC) [Mass/Vol] 33.6 g/dL Normal 31.4 - 36.0 gm/dL [facility] MCV (RBC) [Entitic vol] 85.5 fL Normal 80.0 - 100.0 fL [facility] Monocytes (Bld) [#/Vol] 0.5 E9/L Normal 0.2 - 1.0 E9/L [facility] Monocytes/100 WBC (Bld) 5.9 % Normal 4.0 - 14.0 % [facility] Neutrophils (Bld) [#/Vol] 5.7 E9/L Normal 2.0 - 7.5 E9/L [facility] Neutrophils/100 WBC (Bld) 62.9 % Normal 36.0 - 75.0 % [facility] Platelet mean volume (Bld) [Entitic vol] 8.6 fL Normal 6.4 - 10.8 fL [facility] Platelets (Bld) [#/Vol] 209.0 E9/L Normal 150.0 - 500.0 E9/L [facility] RBC (Bld) [#/Vol] 5.4 E12/L Normal 4.3 - 5.9 E12/L [facility] WBC corrected for nucl RBC Auto (Bld) [#/Vol] 9.1 E9/L Normal 4.0 - 11.0 E9/L [facility] Hep Func Panelon 03-14-2024 Albumin [Mass/Vol] 3.9 g/dL Normal 3.3-5.0 [facility] Comment on above: Performed By: #### 2 [id number] #### [facility] [address] [place] [address] Albumin/Globulin (S) [Mass conc ratio] 1.1 Normal 1.1-2.2 [facility] Comment on above: Performed By: #### 2 [id number] #### [facility] [address] [place] [address] ALP [Catalytic activity/Vol] 61 Int._Unit/L Normal 21-98 [facility] Comment on above: Performed By: #### 2 [id number] #### [facility] [address] [place] [address] ALT No additional P-5'-P [Catalytic activity/Vol] 26 Int._Unit/L Normal 6-46 [facility] Comment on above: Performed By: #### 2 [id number] #### [facility] [address] [place] [address] AST [Catalytic activity/Vol] 20 Int._Unit/L Normal 5-43 [facility] Comment on above: Performed By: #### 2 [id number] #### [facility] [address] [place] [address] Bilirubin [Mass/Vol] 1.1 mg/dL Normal 0.0-1.1 [facility] Comment on above: Performed By: #### 2 [id number] #### [facility] [address] [place] [address] Bilirubin.direct [Mass/Vol] 0.2 mg/dL Normal 0.0-0.4 [facility] Comment on above: Performed By: #### 2 [id number] #### [facility] [address] [place] [address] Bilirubin.indirect [Mass or moles/Vol] 0.9 mg/dL Normal 0.1-0.9 [facility] Comment on above: Performed By: #### 2 [id number] #### [facility] [address] [place] [address] Globulin (S) [Mass/Vol] 3.6 g/dL Normal 1.4-4.0 [facility] Comment on above: Performed By: #### 2 [id number] #### [facility] [address] [place] [address] Protein [Mass/Vol] 7.5 g/dL Normal 6.0-7.8 [facility] Comment on above: Performed By: #### 2 [id number] #### [facility] [address] [place] [address] [id number] 03-14-2024 HbA1c (Bld) [Mass fraction] 9.9 % High <=5.9 [facility] Comment on above: Performed By: #### 7 [id number] #### [facility] [address] [place] [address] Lipid Panelon 03-14-2024 Cholesterol [Mass/Vol] 126 mg/dL Normal 120-200 [facility] Comment on above: Performed By: #### 2 [id number] #### [facility] [address] [place] [address] Cholesterol in HDL [Mass/Vol] 28 mg/dL Invalid Interpretation Code [facility] Comment on above: Result Comment: '>= 60 LOW RISK' '<= 40 HIGH RISK' Performed By: #### 2 [id number] #### [facility] [address] [place] [address] Cholesterol in LDL [Mass/Vol] 97 mg/dL Normal <=129 [facility] Comment on above: Performed By: #### 2 [id number] #### [facility] [address] [place] [address] Cholesterol in VLDL [Mass/Vol] 27 mg/dL Normal 7-40 [facility] Comment on above: Performed By: #### 2 [id number] #### [facility] [address] [place] [address] Triglyceride [Mass/Vol] 136 mg/dL Normal <=149 [facility] Comment on above: Performed By: #### 2 [id number] #### [facility] [address] [place] [address] TSHon 03-14-2024 TSH Qn 0.42 m[IU]/L Normal 0.34-5.60 [facility] Comment on above: Performed By: #### 2 [id number] #### [facility] [address] [place] [address] eGFRon 03-14-2024 eGFR 120 mL/min/1.73 m2 Normal >=59 [facility] Comment on above: Order Comment: Order added by Discern Expert. Performed By: #### 1 [id number] #### [facility] [address] [place] [address] HERPES SIMPLEX VIRUS (HSV) C ULTUREon 10-01-2022 HSV Culture/Type Comment Normal [facility] Comment on above: Result Comment: Nega tive No Herpes simplex virus isolated. Performed By: #### H SVCUL #### [facility] [address] [address] [address] Gilberto Valle POINT OF CARE GLUCOSEon 09-08 Glucose [Mass/Vol] 276 mg/dL Critically high 74-106 [facility] Comment on above: Performed By: #### P OCGLUC #### [facility] [address] [place], [place] [address] Dr. Gilberto Valle COVID Quick Testingon 2020 Result Negative Graffle Other Vital Signs Date Time Vital Sign Value Performing Clinician Facility 11-27-2024 07:17040 Body height 180.3 cm Rashid Mckeon MD Work Phone: [facility] 11-27-2024 07:040 Body mass index (BMI) [Ratio] 54.67 kg/m2 Rashid Mckeon MD Work Phone: [facility] 11-27-2024 07:17-040 Body temperature 97.5 [degF] Rashid Mckeon MD Work Phone: [facility] 11-27-2024 07:17-0400 Body weight 177.81 kg Rashid Mckeon MD Work Phone: [facility] 11-27-2024 07:17-0400 Diastolic blood pressure 74 mm[Hg] Rashid Mckeon MD Work Phone: [facility] 11-27-2024 07:17-0400 Heart rate 58 /min Rashid Mckeon MD Work Phone: [facility] 11-27-2024 07:17-0400 Respiratory rate 18 /min Rashid Mckeon MD Work Phone: [facility] 11-27-2024 07:17-0400 SaO2% (BldA) [Mass fraction] 89 % Rashid Mckeon MD Work Phone: [facility] 11-27-2024 07:17-0400 Systolic blood pressure 130 mm[Hg] Rashid Mckeon MD Work Phone: [facility] 08-28-2024 07:31-0500 Body height 180.3 cm Rashid Mckeon MD Work Phone: [facility] 08-28-2024 07:31-0500 Body mass index (BMI) [Ratio] 53.98 kg/m2 Rashid Mckeon MD Work Phone: [facility] 08-28-2024 07:31-0500 Body temperature 99.5 [degF] Rashid Mckeon MD Work Phone: [facility] 08-28-2024 07:31-0500 Body weight 175.54 kg Rashid Mckeon MD Work Phone: [facility] 08-28-2024 07:31-0500 Diastolic blood pressure 70 mm[Hg] Rashid Mckeon MD Work Phone: [facility] 08-28-2024 07:31-0500 Heart rate 85 /min Rashid Mckeon MD Work Phone: [facility] 08-28-2024 07:31-0500 Respiratory rate 22 /min Rashid Mckeon MD Work Phone: [facility] 08-28-2024 07:31-0500 SaO2% (BldA) [Mass fraction] 93 % Rashid Mckeon MD Work Phone: [facility] 08-28-2024 07:31-0500 Systolic blood pressure 166 mm[Hg] Rashid Mckeon MD Work Phone: [facility] 06-26-2024 07:38-0500 Body height 180.3 cm Rashid Mckeon MD Work Phone: [facility] 06-26-2024 07:38-0500 Body mass index (BMI) [Ratio] 53.98 kg/m2 Rashid Mckeon MD Work Phone: [facility] 06-26-2024 07:38-0500 Body temperature 96.21 [degF] Rashid Mckeon MD Work Phone: [facility] 06-26-2024 07:38-0500 Body weight 175.54 kg Rashid Mckeon MD Work Phone: [facility] 06-26-2024 07:38-0500 Diastolic blood pressure 64 mm[Hg] Rashid Mckeon MD Work Phone: [facility] 06-26-2024 07:38-0500 Heart rate 100 /min Rashid Mckeon MD Work Phone: [facility] 06-26-2024 07:38-0500 Respiratory rate 18 /min Rashid cMkeon MD Work Phone: [facility] 06-26-2024 07:38-0500 SaO2% (BldA) [Mass fraction] 95 % Rashid Mckeon MD Work Phone: [facility] 06-26-2024 07:38-0500 Systolic blood pressure 166 mm[Hg] Rashid Mckeon MD Work Phone: [facility] 04-24-2024 07:30-0400 Body height 180.3 cm Rashid Mckeon MD Work Phone: [facility] 04-24-2024 07:30-0400 Body mass index (BMI) [Ratio] 54.53 kg/m2 Rashid Mckeon MD Work Phone: [facility] 04-24-2024 07:30-0400 Body temperature 95.11 [degF] Rashid Mckeon MD Work Phone: [facility] 04-24-2024 07:30-0400 Body weight 177.36 kg Rashid Mckeon MD Work Phone: [facility] 04-24-2024 07:30-0400 Diastolic blood pressure 70 mm[Hg] Rashid Mckeon MD Work Phone: [facility] 04-24-2024 07:30-0400 Heart rate 93 /min Rashid Mckeon MD Work Phone: [facility] 04-24-2024 07:30-0400 Respiratory rate 18 /min Rashid Mckeon MD Work Phone: [facility] 04-24-2024 07:30-0400 SaO2% (BldA) [Mass fraction] 95 % Rashid Mckeon MD Work Phone: [facility] 04-24-2024 07:30-0400 Systolic blood pressure 130 mm[Hg] Rashid Mckeon MD Work Phone: [facility] 04-11-2024 19:40-0400 Heart rate 111 /min Arnulfo Mills [facility] 04-11-2024 19:00-0400 Diastolic blood pressure 81 mm[Hg] Arnulfo Mills [facility] 04-11-2024 19:00-0400 SaO2% (BldA) [Mass fraction] 94 % Arnulfo Mills [facility] 04-11-2024 19:00-0400 Systolic blood pressure 132 mm[Hg] Arnulfo Mills [facility] 04-11-2024 18:00-0400 Diastolic blood pressure 85 mm[Hg] Arnulfo Mills [facility] 04-11-2024 18:00-0400 Heart rate 117 /min Arnulfo Jadeer [facility] 04-11-2024 18:00-0400 Mean blood pressure 95 mm[Hg] Arnulfo Jadeer [facility] 04-11-2024 18:00-0400 Systolic blood pressure 115 mm[Hg] Arnulfo Jadeer [facility] 04-11-2024 17:15-0400 Heart rate 126 /min Arnulfo Woodsoncker [facility] 04-11-2024 17:15-0400 Respiratory rate 20 /min Arnulfo Woodsoncker [facility] 04-11-2024 17:15-0400 SaO2% (BldA) [Mass fraction] 93 % Arnulfo Woodsoncker [facility] 04-11-2024 16:41-0400 Diastolic blood pressure 91 mm[Hg] Arnulfo Jadeer [facility] 04-11-2024 16:41-0400 Mean blood pressure 110 mm[Hg] Arnulfo Jadeer [facility] 04-11-2024 16:41-0400 Respiratory rate 19 /min Arnulfo Jadeer [facility] 04-11-2024 16:41-0400 Systolic blood pressure 148 mm[Hg] Arnulfo Gene [facility] 04-11-2024 16:23-0400 Body temperature 98.96 [degF] Arnulfo Woodsoncker [facility] 04-11-2024 16:23-0400 Heart rate 114 /min Arnulfo Gene [facility] 03-13-2024 07:17-0400 Body height 177.8 cm Rashid Mckeon MD Work Phone: [facility] 03-13-2024 07:17-0400 Body mass index (BMI) [Ratio] 55.39 kg/m2 Rashid Mckeon MD Work Phone: [facility] 03-13-2024 07:17-0400 Body temperature 96.6 [degF] Rashid Mckeon MD Work Phone: [facility] 03-13-2024 07:17-0400 Body weight 175.09 kg Rashid Mckeon MD Work Phone: [facility] 03-13-2024 07:17-0400 Diastolic blood pressure 68 mm[Hg] Rashid Mckeon MD Work Phone: [facility] 03-13-2024 07:17-0400 Heart rate 87 /min Rashid Mckeon MD Work Phone: [facility] 03-13-2024 07:17-0400 Respiratory rate 18 /min Rashid Mckeon MD Work Phone: [facility] 03-13-2024 07:17-0400 SaO2% (BldA) [Mass fraction] 93 % Rashid Mckeon MD Work Phone: [facility] 03-13-2024 07:17-0400 Systolic blood pressure 130 mm[Hg] Rashid Mckeon MD Work Phone: [facility] 02-01-2022 11:49-0400 Body temperature 96.98 [degF] Lanre LAWRENCE [facility] 02-01-2022 11:49-0400 Diastolic blood pressure 82 mm[Hg] Lanre LAWRENCE [facility] 02-01-2022 11:49-0400 Heart rate 85 /min Lanre LAWRENCE [facility] 02-01-2022 11:49-0400 SaO2% (BldA) [Mass fraction] 93 % Lanre LAWRENCE [facility] 02-01-2022 11:49-0400 Systolic blood pressure 128 mm[Hg] Lanre LAWRENCE [facility] Encounters Encounter Date Encounter Type Care Provider Facility Start: 11-27-2024 End: 11-27-2024 Bamboo flowsheet Rashid Mckeon MD Work Phone: [facility] Start: 11-27-2024 End: 11-27-2024 [employer] Rashid Mckeon MD Work Phone: [facility] Start: 11-27-2024 End: 11-27-2024 Office outpatient visit 25 minutes Rashid Mckeon MD Work Phone: [facility] Comment on above: Type 2 diabetes terri itus with hyperglycemia, without long-term current use of insulin (CMS/HCC) (Primary Dx); Major depressive disorder, recurrent episode, mild (HCC) (CMS/HCC); JAYJAY (generalized anxiety disorder) (CMS/HCC); Mild intermittent asthma without complication (CMS/HCC); Class 3 severe obesity due to excess calories with serious comorbidity and body mass index (BMI) of 50.0 to 59.9 in adult Start: 09-10-2024 End: 09-10-2024 Telephone encounter Rashid Mckeon MD Work Phone: [facility] Comment on above: Med Refill Start: 08-28-2024 End: 08-28-2024 Bamboo flowsheet Rashid Mckeon MD Work Phone: [facility] Start: 08-28-2024 End: 08-28-2024 Bamboo flowsheet Rashid Mckeon MD Work Phone: [facility] Start: 08-28-2024 End: 08-28-2024 Office outpatient visit 25 minutes Rashid Mckeon MD Work Phone: [facility] Comment on above: Type 2 diabetes terri itus with hyperglycemia, without long-term current use of insulin (CMS/HCC) (Primary Dx); Major depressive disorder, recurrent episode, mild (HCC) (CMS/HCC); JAYJAY (generalized anxiety disorder) (CMS/HCC); Mild intermittent asthma without complication (CMS/[facility]); Class 3 severe obesity due to excess calories with serious comorbidity and body mass index (BMI) of 50.0 to 59.9 in adult ([facility]) Start: 08-28-2024 End: 08-28-2024 ambulatory RASHID MCKEON Not Available Start: 06-27-2024 End: 06-27-2024 Orders Only Rashid Mckeon MD Work Phone: [facility] Comment on above: Type 2 diabetes terri itus with hyperglycemia, without long-term current use of insulin ([facility]) Start: 06-26-2024 End: 06-26-2024 ambulatory RASHID MCKEON [place] Start: 06-26-2024 End: 06-26-2024 Patient encounter procedure RASHID MCKEON [facility] Start: 06-26-2024 End: 06-26-2024 Bamboo flowsheet Rashid Mckeon MD Work Phone: [facility] Start: 06-26-2024 End: 06-26-2024 Bamboo flowsheet Rashid Mckeon MD Work Phone: [facility] Start: 06-26-2024 End: 06-26-2024 Clinisync Result Encounter Rashid Mckeon MD Work Phone: [facility] Unsolicited Start: 06-26-2024 End: 06-26-2024 Office outpatient visit 25 minutes Rashid Mckeon MD Work Phone: [facility] Comment on above: Type 2 diabetes terri itus with hyperglycemia, without long-term current use of insulin (CMS/HCC) (Primary Dx); Major depressive disorder, recurrent episode, mild (HCC) (CMS/HCC); JAYJAY (generalized anxiety disorder) (CMS/HCC); Mild intermittent asthma without complication (CMS/HCC); Class 3 severe obesity due to excess calories with serious comorbidity and body mass index (BMI) of 50.0 to 59.9 in adult (CMS/HCC) Start: 06-26-2024 End: 06-26-2024 ambulatory RASHID MCKEON Not Available Start: 04-24-2024 End: 04-24-2024 Bamboo flowsheet Rashid Mckeon MD Work Phone: [facility] Start: 04-24-2024 End: 04-24-2024 [employer] Rashid Mckeon MD Work Phone: [facility] Start: 04-24-2024 End: 04-24-2024 Office outpatient visit 25 minutes Rashid Mckeon MD Work Phone: [facility] Comment on above: Type 2 diabetes terri itus with hyperglycemia, without long-term current use of insulin (CMS/HCC) (Primary Dx); Major depressive disorder, recurrent episode, mild (HCC) (CMS/HCC); JAYJAY (generalized anxiety disorder) (CMS/HCC) Start: 04-24-2024 End: 04-24-2024 ambulatory RASHID MCKEON Not Available Start: 04-11-2024 End: 04-11-2024 Emergency department patient visit Arnulfo Mills [place] [place]: 04-11-2024 Emergency department patient visit Felipe Garcias [place] Start: 04-11-2024 End: 04-11-2024 Evaluation and management of inpatient [place] [facility] Start: 03-14-2024 End: 03-14-2024 Clinisync Result Encounter Rashid Mckeon MD Work Phone: [facility] External Department Unsolicited Start: 03-14-2024 End: 03-14-2024 Clinisync Result Encounter Rashid Mckeon MD Work Phone: [facility] External Department Unsolicited Start: 03-14-2024 End: 03-14-2024 ambulatory RASHID MCKEON [place] Comment on above: Type 2 diabetes terri itus with hyperglycemia, without long-term current use of insulin (CMS/HCC) (Primary Dx) Start: 03-14-2024 End: 03-14-2024 Patient encounter procedure RASHID MCKEON [facility] Start: 03-13-2024 End: 03-13-2024 Bamboo flowsheet Rashid Mckeon MD Work Phone: [facility] Start: 03-13-2024 End: 03-13-2024 Bamboo flowsheet Rashid Mckeon MD Work Phone: [facility] Start: 03-13-2024 End: 03-13-2024 ambulatory RASHID MCKEON Not Available Start: 03-13-2024 End: 03-13-2024 Patient encounter procedure Rashid Mckeon MD Work Phone: [facility] Start: 03-13-2024 End: 03-13-2024 Periodic preventive med est patient 18-39 yrs Rashid Mckeon MD Work Phone: [facility] Comment on above: Annual physical exam (Primary Dx); Major depressive disorder, recurrent episode, mild (HCC) (CMS/HCC); JAYJAY (generalized anxiety disorder) (CMS/HCC); Morbid obesity due to excess calories (CMS/HCC) Start: 11-24-2022 ambulatory NONE LISTED REQUEST Facility: Start: 09-28-2022 End: 09-28-[address] LAM XIAO Facility: Start: 02-01-2022 End: 02-01-2022 Patient encounter procedure Lanre LAWRENCE [facility] Start: 06-24-2021 End: 06-24-2021 ambulatory Madeline Toni Other [facility] [employer] Other Start: 06-24-2021 Office outpatient vi sit 5 minutes Madeline Toni [facility] Start: 07-06-2018 End: 07-06-2018 Emergency department patient visit [facility] Procedures Date Procedure Procedure Detail Performing Clinician Start: 06-26-2024 [facility] HGBA1C Rashid rodrigues MD Work Phone: Start: 03-14-2024 SCANNED LABS Rashid rodrigues MD Work Phone: Start: 03-14-2024 [facility] CBC W/ AUTO DIFF M isaias Mckeon MD Work Phone: Structure of wisdom tooth (body structure) Lanre LAWRENCE Tonsillectomy Lanre LAWRENCE Plan of Treatment Date Care Activity Detail Author Start: 04-11-2025 Urine screening for protein Diabetes: Urine Protein Screening [facility] Start: 03-10-2025 Influenza vaccination Influenz a Vaccine (Season Ended) [facility] Start: 03-05-2025 End: 03-05-2025 Patient encounter procedure 03/05/2025 7:00 AM EDT Office Visit [facility] [address] [place] [id number] Rashid Mckeon MD [address] [place] [id number] [facility] Start: 12-25-2024 Hemoglobin A1c measurement Diabetes: Hemoglobin A1C [facility] Start: 11-27-2024 End: 11-27-2025 Hemoglobin A1c/Hemoglobin.total in Blood Hemoglobin A1c Lab Routine Type 2 diabetes mellitus with hyperglycemia, without long-term current use of insulin ([facility]) Expected: 11/27/2024 (Approximate), Expires: 11/27/2025 [facility] Comment on above: Expected: 11/27/2024 (Approximate), Expires: 11/27/2025 Start: 11-27-2024 End: 11-27-2025 Microalbumin/Creatinine panel in random Urine Microalbumin / creatinine, urine ratio Lab Routine Type 2 diabetes mellitus with hyperglycemia, without long-term current use of insulin ([facility]) Expected: 11/27/2024 (Approximate), Expires: 11/27/2025 [facility] Work Phone: Comment on above: Expected: 11/27/2024 (Approximate), Expires: 11/27/2025 Start: 11-27-2024 End: 11-27-2024 Patient encounter procedure 11/27/2024 7:00 AM EDT Office Visit [facility] [address] [place] [address] Rashid Mckeon MD [address] [place] [id number] [facility] Start: 09-24-2024 Hemoglobin A1c measurement Diabetes: Hemoglobin A1C [facility] Start: 08-28-2024 End: 08-28-2024 Patient encounter procedure [facility] Comment on above: Arrived Start: 06-26-2024 End: 06-26-2025 Hemoglobin A1c/Hemoglobin.total in Blood Hemoglobin A1c Lab Routine Type 2 diabetes mellitus with hyperglycemia, without long-term current use of insulin ([facility]) Expected: 06/26/2024 (Approximate), Expires: 06/26/2025 [facility] Work Phone: Comment on above: Expected: 06/26/2024 (Approximate), Expires: 06/26/2025 Start: 06-26-2024 End: 06-26-2024 Patient encounter procedure [facility] Comment on above: Arrived Start: 04-24-2024 End: 04-24-2024 Patient encounter procedure [facility] Comment on above: Arrived Start: 03-13-2024 End: 03-13-2025 Basic metabolic 1998 panel - Serum or Plasma Basic metabolic panel Lab Routine Annual physical exam Expected: 03/13/2024 (Approximate), Expires: 03/13/2025 [facility] Comment on above: Expected: 03/13/2024 (Approximate), Expires: 03/13/2025 Start: 03-13-2024 End: 03-13-2025 CBC W Auto Differential panel - Blood CBC and differential Lab Routine Annual physical exam Expected: 03/13/2024 (Approximate), Expires: 03/13/2025 [facility] Comment on above: Expected: 03/13/2024 (Approximate), Expires: 03/13/2025 Start: 03-13-2024 End: 03-13-2025 Hemoglobin A1c/Hemoglobin.total in Blood Hemoglobin A1c Lab Routine Annual physical exam Expected: 03/13/2024 (Approximate), Expires: 03/13/2025 [facility] Work Phone: Comment on above: Expected: 03/13/2024 (Approximate), Expires: 03/13/2025 Start: 03-13-2024 End: 03-13-2025 Hepatic function 2000 panel - Serum or Plasma Hepatic function panel Lab Routine Annual physical exam Expected: 03/13/2024 (Approximate), Expires: 03/13/2025 [facility] Comment on above: Expected: 03/13/2024 (Approximate), Expires: 03/13/2025 Start: 03-13-2024 End: 03-13-2025 Lipid 1996 panel - Serum or Plasma Lipid panel Lab Routine Annual physical exam Expected: 03/13/2024 (Approximate), Expires: 03/13/2025 [facility] Comment on above: Expected: 03/13/2024 (Approximate), Expires: 03/13/2025 Start: 03-13-2024 End: 03-13-2025 Thyrotropin [Units/volume] in Serum or Plasma TSH Lab Routine Annual physical exam Expected: 03/13/2024 (Approximate), Expires: 03/13/2025 [facility] Comment on above: Expected: 03/13/2024 (Approximate), Expires: 03/13/2025 Start: 03-10-2024 Influenza vaccination Influenza Vacc ine (#1) [facility] Start: 02-06-2016 Urine screening for protein Diabetes: Urine Protein Screening [facility] Start: 2007 Glaucoma screening Diabetes: R etinopathy Screening [facility] Start: 1997 Hemoglobin A1c measurement Diabetes: Hemoglobin A1C [facility] Immunizations Immunization Date Immunization Notes Care Provider Perla damon 01-10-2014 tetanus toxoid, reduced diphtheria toxoid, and acellular pertussis vaccine, adsorbed Lanre LAWRENCE [facility] NEGATED: Highlighted row has not occurred!06-19-2019 influenza virus vaccine, live, attenuated, for intranasal use Lanre LAWRENCE [facility] Payers Date Payer Category Payer Private Health Insurance [id number] 2023 Private Health Insurance [id number] 2017 [facility] [employer] PLAN [id number] 2017-Present [address] [place] [address] [id number] 2014 Unknown [id number] 1997 Unknown [id number]. 174 1997 Unknown [id number]. 593 1997 Unknown [id number]. 593 1997 Unknown [id number]. 727 1997 Unknown [id number] [id number]. 727 1997 Unknown [id number]. 727 1997 Unknown [id number]. 727 1997 Unknown [id number]. 727 1997 Unknown [id number] [id number]. 9 1997 Unknown [id number] [id number]. 9 1997 Unknown [id number]. 9 1997 Unknown [id number] 1259 1959 Unknown [id number] Social History Date Type Detail Facility Unknown if ever smoked [facility] Start: 03-12-2024 End: 11-27-2024 Sex Assigned At [facility] Start: 02-01-2022 End: 03-13-2024 Tobacco smoking status Ex-smoker (finding) [facility] Tobacco smoking status Smokeless tobacco user within last 30 days [facility] History of tobacco use Current smoker [facility] History of tobacco use Cigarette Smoker [facility] Start: 03-13-2024 Tobacco use and exposure Smokeless tobacco non-user [facility] Start: 03-12-2024 End: 11-27-2024 History of Social function [facility] Do you belong to any clubs or organizations such as gnosticist groups, unions, fraternal or athletic groups, or school groups? No [facility] Are you now , , , , never or living with a partner? Never [facility] How often to you hav e a drink containing alcohol? Monthly or less [facility] How many standard dr inks containing alcohol do you have on a typical day? 10 or more [facility] How often do you hav e 6 or more drinks on 1 occasion? Less than monthly [facility] How hard is it for y ou to pay for the very basics like food, housing, medical care, and heating Somewhat hard [facility] Do you feel stress - tense, restless, nervous, or anxious, or unable to sleep at night because your mind is troubled all the time - these days [OSQ] Only a little [facility] The food that (I/we) bought just didn't last, and (I/we) didn't have money to get more. Never true [facility] Start: 1997 Sex assigned at Not on file [facility] Tobacco smoking stat [facility] Tobacco smoking consumption unknown [facility] How often do you nee d to have someone help you when you read instructions, pamphlets, or other written material from your doctor or pharmacy [SILS] Rarely [facility] Medical Equipment Procedure Code Equipment Code Equipment Origin al Text Equipment Identifier Dates 1 each by In Vit ro route Daily [id number] Start: 03-14-2024 1 each Daily [id number] Start: 03-14-2024 Functional Status Date Assessment Result Facility 04-11-2024 Functional Status N/A [facility] 02-01-2022 Functional Status N/A [facility] Clinical Notes 06-24-2021 to 11-27-2024 Rashid Mckeon MD - 11/27/2024 7:43 AM Talisha Mckeon MD - 11/27/2024 7:43 AM Talisha Mckeon MD - 11/27/2024 7:42 AM Talisha Mckeon MD - 11/27/2024 7:42 AM EDT Note Date & Type Note Facility 11-27-2024 History of Presen t illness Narrative Associated Problem(s): Type 2 diabetes mellitus with hyperglycemia (CMS/HCC) Reports BS elevated and due for A1C. Add ozempic. Stick to ADA diet and limit carbs. Associated Problem(s): Mild intermittent asthma without complication (CMS/HCC) SOB stable and use albuterol PRN. Associated Problem(s): Major depressive disorder, recurrent episode, mild (HCC) (CMS/HCC) Symptoms improved with effexor and continue at current dose. If worsens can increase dose in future. Associated Problem(s): JAYJAY (generalized anxiety disorder) (CMS/HCC) Symptoms improved with effexor and continue at current dose. If worsens can increase dose in future. Associated Problem(s): Class 3 severe obesity due to excess calories with serious comorbidity and body mass index (BMI) of 50.0 to 59.9 in adult Weight loss indicated. Images from the original note were not included. Subjective Patient ID: Earl Shaffer is a 29 y.o. male who [...] ratio Hemoglobin A1c documented in this encounter [facility] 09-10-2024 Telephone encounter Note Chart note from last visit states stop prozac and start effexor, but effexor never sent to pharmacy. clm [facility] 09-10-2024 Miscellaneous Notes Chart note from last visit states stop prozac and start effexor, but effexor never sent to pharmacy. clm documented in this encounter [facility] 08-28-2024 History of Presen t illness Narrative Associated Problem(s): Type 2 diabetes mellitus with hyperglycemia ([facility]) Reports BS improved and continue to monitor. Stick to ADA diet and limit carbs. Associated Problem(s): Mild intermittent asthma without complication ([facility]) Increased SOB and needs inhaled steroid. Contact insurance to see what medication is preferred. Use albuterol PRN. Associated Problem(s): Major depressive disorder, recurrent episode, mild (HCC) ([facility]) Symptoms slightly improved but worse and stop prozac. Try effexor. Warned will take 2-3 weeks to notice improvement in mood. Associated Problem(s): JAYJAY (generalized anxiety disorder) ([facility]) Symptoms slightly improved but worse and stop prozac. Try effexor. Warned will take 2-3 weeks to notice improvement in mood. Associated Problem(s): Class 3 severe obesity due to excess calories with serious comorbidity and body mass index (BMI) of 50.0 to 59.9 in adult (CMS/HCC) Weight unchanged. Images from the original note were not included. Subjective Patient ID: Earl Shaffre is a 29 y.o. male who presents for Follow-up (2 M). Follow up DM, depression, anxiety, and asthma. BS variable and 115-200. Works nights and typically checks BS once home after work. Tries to eat well and stick to ADA diet. Denies signs of elevated BS such as polyuria, polyphagia or polydipsia. Mood initially improved then worse. Down, sad, and no motivation. Not want to do things or be around others. Doesn't feel happy. Continued anxiety. Nervous and worry all the time. Stressed out and overwhelmed. Thought racing and hard to clear mind. Pro, irritable and snapping at others. Easily upset and overreact. Wants to try different medication. Asthma unchanged. Continued SOB and cough with exertion. Chest tight and hard to take deep breath. Pulmicort and QVAR both over $200 a month. Using albuterol PRN. Review of Systems Constitutional: Negative for fatigue. [...] This Visit Mild intermittent asthma without complication ([facility]) Increased SOB and needs inhaled steroid. Contact insurance to see what medication is preferred. Use albuterol PRN. Class 3 severe obesity due to excess calories with serious comorbidity and body mass index (BMI) of 50.0 to 59.9 in adult ([facility]) Weight unchanged. Major depressive disorder, recurrent episode, mild (HCC) ([facility]) Symptoms slightly improved but worse and stop prozac. Try effexor. Warned will take 2-3 weeks to notice improvement in mood. JAYJAY (generalized anxiety disorder) ([facility]) Symptoms slightly improved but worse and stop prozac. Try effexor. Warned will take 2-3 weeks to notice improvement in mood. Type 2 diabetes mellitus with hyperglycemia ([facility]) - Primary Reports BS improved and continue to monitor. Stick to ADA diet and limit carbs. documented in this encounter [facility] 06-26-2024 History of Presen t illness Narrative Associated Problem(s): Type 2 diabetes mellitus with hyperglycemia ([facility]) Reports BS improved and due for A1C. Stick to ADA diet and limit carbs. Associated Problem(s): Mild intermittent asthma without complication ([facility]) Increased SOB and add inhaled steroid. Use albuterol PRN. Associated Problem(s): Major depressive disorder, recurrent episode, mild (HCC) ([facility]) Symptoms slightly improved but still present and increase prozac. Warned will take 2-3 weeks to notice improvement in mood. Associated Problem(s): JAYJAY (generalized anxiety disorder) ([facility]) Symptoms slightly improved but still present and increase prozac. Warned will take 2-3 weeks to notice improvement in mood. Associated Problem(s): Class 3 severe obesity due to excess calories with serious comorbidity and body mass index (BMI) of 50.0 to 59.9 in adult ([facility]) Weight down 4 pounds. Images from the original note were not included. Subjective Patient ID: Earl Shaffer is a 29 y.o. male who presents for Follow-up (2 M). Follow up DM, depression, anxiety, and asthma. BS improved and 99-200 but average around 130. Tries to eat well and stick to ADA diet. Denies signs of elevated BS such as polyuria, polyphagia or polydipsia. Mood slightly better. Still symptoms and at times down, sad, and no motivation. Anxiety stable. Not as stressed out or overwhelmed. Not as nervous or worry as much. Not as pro or irritable. Overall feels like room for improvement. Tolerating medication without side effects. Asthma worse over past few weeks. Increased SOB with exertion. Occasional cough but nonproductive. Using albuterol daily. Review of Systems Constitutional: Negative for fatigue. [...] Visit Mild intermittent asthma without complication (CMS/HCC) Increased SOB and add inhaled steroid. Use albuterol PRN. Relevant Medications budesonide (Pulmicort Flexhaler) 90 MCG/ACT inhaler Class 3 severe obesity due to excess calories with serious comorbidity and body mass index (BMI) of 50.0 to 59.9 in adult (CMS/HCC) Weight down 4 pounds. Major depressive disorder, recurrent episode, mild (HCC) (CMS/HCC) Symptoms slightly improved but still present and increase prozac. Warned will take 2-3 weeks to notice improvement in mood. Relevant Medications FLUoxetine (PROzac) 40 MG capsule JAYJAY (generalized anxiety disorder) (CMS/HCC) Symptoms slightly improved but still present and increase prozac. Warned will take 2-3 weeks to notice improvement in mood. Type 2 diabetes mellitus with hyperglycemia (CMS/HCC) - Primary Reports BS improved and due for A1C. Stick to ADA diet and limit carbs. Relevant Orders Hemoglobin A1c documented in this encounter [facility] 04-24-2024 History of Presen t illness Narrative Associated Problem(s): JAYJAY (generalized anxiety disorder) (CMS/HCC) Symptoms unchanged with with celexa and stop. Start zoloft and warned will take 2-3 weeks to notice improvement in mood. Use hydroxyzine PRN. Associated Problem(s): Major depressive disorder, recurrent episode, mild (HCC) (CMS/HCC) Symptoms unchanged with with celexa and stop. Start zoloft and warned will take 2-3 weeks to notice improvement in mood. Associated Problem(s): Type 2 diabetes mellitus with hyperglycemia (CMS/HCC) New onset DM and check BS once a day. Stick to ADA diet and limit carbs. Images from the original note were not included. Subjective Patient ID: Earl Shaffer is a 29 y.o. male who presents for Follow-up (1 m). Follow up depression, anxiety and lab results. Labs drawn showed A1C 9.9 and glucose 338. Diagnosed with diabetes and started metformin and glipizide. Not checking BS away from office. Changed diet and trying to eat better. Tries to limit carbs and smaller portions. Denies signs of elevated BS such as polyuria, polyphagia or polydipsia. Due for eye exam. Mood unchanged with celexa. Still having depression and down, sad, and no motivation. Not want to do anything or be around others. Not want to leave house. Severe anxiety. Anxiety stable. Not as stressed out or overwhelmed. Not as nervous or worry as much. Not as pro or irritable. Review of Systems Constitutional: Negative for fatigue. [...] Assessment/Plan Problem List Items Addressed This Visit Major depressive disorder, recurrent episode, mild (HCC) (CMS/HCC) Symptoms unchanged with with celexa and stop. Start zoloft and warned will take 2-3 weeks to notice improvement in mood. Relevant Medications sertraline (Zoloft) 25 MG tablet JAYJAY (generalized anxiety disorder) (CMS/HCC) Symptoms unchanged with with celexa and stop. Start zoloft and warned will take 2-3 weeks to notice improvement in mood. Use hydroxyzine PRN. Type 2 diabetes mellitus with hyperglycemia (CMS/HCC) - Primary New onset DM and check BS once a day. Stick to ADA diet and limit carbs. documented in this encounter [facility] 04-11-2024 Hospital Discharg e instructions Patient Education 04/11/2024 19:04:32 Asthma, Adult Asthma, Adult Asthma is a long-term (chronic) condition that causes recurrent episodes in which the lower airways in the lungs become tight and narrow. The narrowing is caused by inflammation and tightening of the smooth muscle around the lower airways. Asthma episodes, also called asthma attacks or asthma flares, may cause coughing, making high-pitched whistling sounds when you breathe, most often when you breathe out (wheezing), shortness of breath, and chest pain. The airways may produce extra mucus caused by the inflammation and irritation. During an attack, it can be difficult to breathe. Asthma attacks can range from minor to life-threatening. Asthma cannot be cured, but medicines and lifestyle changes can help control it and treat acute attacks. It is important to keep your asthma well controlled so the condition does not interfere with your daily life. What are the causes? This condition is believed to be caused by inherited (genetic) and environmental factors, but its exact cause is not known. What can trigger an asthma attack? Many things can bring on an asthma attack or make symptoms worse. These triggers are different for every person. Common triggers include: Allergens and irritants like mold, dust, pet dander, cockroaches, pollen, air pollution, and chemical odors. Cigarette smoke. Weather changes and cold air. Stress and strong emotional responses such as crying or laughing hard. Certain medications such as aspirin or beta blockers. Infections and inflammatory conditions, such as the flu, a cold, pneumonia, or inflammation of the nasal membranes (rhinitis). Gastroesophageal reflux disease (GERD). What are the signs or symptoms? Symptoms may occur right after exposure to an asthma trigger or hours later and can vary by person. Common signs and symptoms include: Wheezing. Trouble breathing (shortness of breath). Excessive nighttime or refrigerating engineer head coughing. Chest tightness. Tiredness (fatigue) with minimal activity. Difficulty talking in complete sentences. Poor exercise tolerance. How is this diagnosed? This condition is diagnosed based on: A physical exam and your medical history. Tests, which may include: ?Lung function studies to evaluate the flow of air in your lungs. ?Allergy tests. ?Imaging tests, such as X-rays. How is this treated? There is no cure, but symptoms can be controlled with proper treatment. Treatment usually involves: Identifying and avoiding your asthma triggers. Inhaled medicines. Two types are commonly used to treat asthma, depending on severity: ?Controller medicines. These help prevent asthma symptoms from occurring. They are taken every day. ?Fast-acting reliever or rescue medicines. These quickly relieve asthma symptoms. They are used as needed and provide short-term relief. Using other medicines, such as: ?Allergy medicines, such as antihistamines, if your asthma attacks are triggered by allergens. ?Immune medicines (immunomodulators). These are medicines that help control the immune system. Using supplemental oxygen. This is only needed during a severe episode. Creating an asthma action plan. An asthma action plan is a written plan for managing and treating your asthma attacks. This plan includes: ?A list of your asthma triggers and how to avoid them. ?Information about when medicines should be taken and when their dosage should be changed. ?Instructions about using a device called a peak flow meter. A peak flow meter measures how well the lungs are working and the severity of your asthma. It helps you monitor your condition. Follow these instructions at home: Take hopx-xpg-cpyxtzu and prescription medicines only as told by your health care provider. Stay up to date on all vaccinations as recommended by your healthcare provider, including vaccines for the flu and pneumonia. Use a peak flow meter and keep track of your peak flow readings. Understand and use your asthma action plan to address any asthma flares. Do not smoke or allow anyone to smoke in your home. Contact a health care provider if: You have wheezing, shortness of breath, or a cough that is not responding to medicines. Your medicines are causing side effects, such as a rash, itching, swelling, or trouble breathing. You need to use a reliever medicine more than 2 3 times a week. Your peak flow reading is still at 50 79% of your personal best after following your action plan for 1 hour. You have a fever and shortness of breath. Get help right away if: You are getting worse and do not respond to treatment during an asthma attack. You are short of breath when at rest or when doing very little physical activity. You have difficulty eating, drinking, or talking. You have chest pain or tightness. You develop a fast heartbeat or palpitations. You have a bluish color to your lips or fingernails. You are light-headed or dizzy, or you faint. Your peak flow reading is less than 50% of your personal best. You feel too tired to breathe normally. These symptoms may be an emergency. Get help right away. Call 911. Do not wait to see if the symptoms will go away. Do not drive yourself to the hospital. Summary Asthma is a long-term (chronic) condition that causes recurrent episodes in which the airways become tight and narrow. Asthma episodes, also called asthma attacks or asthma flares, can cause coughing, wheezing, shortness of breath, and chest pain. Asthma cannot be cured, but medicines and lifestyle changes can help keep it well controlled and prevent asthma flares. Make sure you understand how to avoid triggers and how and when to use your medicines. Asthma attacks can range from minor to life-threatening. Get help right away if you have an asthma attack and do not respond to treatment with your usual rescue medicines. This information is not intended to replace advice given to you by your health care provider. Make sure you discuss any questions you have with your health care provider. Document Revised: 04/13/2022 Document Reviewed: 04/04/2022 [employer] Patient Education 2023 [employer]. 04/11/2024 19:04:32 Hypoxia Hypoxia Hypoxia is a condition that happens when there is a lack of oxygen in the body's tissues and organs. When there is not enough oxygen, organs cannot work as they should. This causes serious problems throughout the body and in the brain. What are the causes? This condition may be caused by: Exposure to high altitude. A collapsed lung (pneumothorax). Lung infection (pneumonia). Lung injury. Long-term (chronic) lung disease, such as chronic obstructive pulmonary disease (COPD) or emphysema. Fluid collecting in the chest cavity (congestive heart failure), or blood collecting in the chest cavity (hemothorax). Food, saliva, or vomit getting into the airway (aspiration). Reduced blood flow (ischemia). Severe blood loss. Slow or shallow breathing (hypoventilation). Blood disorders, such as anemia. Carbon monoxide or cyanide poisoning. The heart suddenly stopping (cardiac arrest). Medicines or recreational drugs with severe sedating effects. Drowning. Choking. What are the signs or symptoms? Symptoms of this condition include: Headache. Feeling tired (fatigue). Forgetfulness. Nausea. Confusion. Shortness of breath. Dizziness. Bluish color of the skin, lips, or nail beds (cyanosis). Change in consciousness or awareness. If hypoxia is not treated, it can lead to convulsions, loss of consciousness (coma), or brain damage, which can be life-threatening. How is this diagnosed? This condition may be diagnosed based on: A physical exam. Blood tests. A test that measures how much oxygen is in your blood (pulse oximetry). This is done with a sensor that is placed on your finger, toe, or earlobe. Imaging, such as a chest X-ray or CT scan. Tests to check your lung function (pulmonary function tests). A test to check the electrical activity of your heart (electrocardiogram, ECG). You may have other tests to determine the cause of your hypoxia. How is this treated? Treatment for this condition depends on what is causing the hypoxia. You will likely be treated with oxygen therapy. This may be done by giving you oxygen through a face mask or through tubes in your nose. Your health care provider may also recommend other therapies to treat the underlying cause of your hypoxia. Follow these instructions at home: Take qqnw-sgu-gaauklg and prescription medicines only as told by your health care provider. Do not use any products that contain nicotine or tobacco. These products include cigarettes, chewing tobacco, and vaping devices, such as e-cigarettes. If you need help quitting, ask your health care provider. Avoid secondhand smoke. Work with your health care provider to manage any chronic conditions you have that may be causing hypoxia, such as COPD. Keep all follow-up visits. This is important. Contact a health care provider if: You have a fever. You become extremely short of breath when you exercise. Get help right away if: Your shortness of breath gets worse, especially with normal or very little activity. You have trouble breathing, even after treatment. Your skin, lips, or nail beds have a bluish color. You become confused or you cannot think properly. You have chest pain. These symptoms may be an emergency. Get help right away. Call 911. Do not wait to see if the symptoms will go away. Do not drive yourself to the hospital. Summary Hypoxia is a condition that happens when there is a lack of oxygen in the body's tissues and organs. If hypoxia is not treated, it can lead to convulsions, loss of consciousness (coma), or brain damage. Symptoms of hypoxia can include a headache, shortness of breath, confusion, nausea, and a bluish skin color. Hypoxia has many possible causes, including exposure to high altitude, carbon monoxide poisoning, or other health issues, such as blood disorders or cardiac arrest. Hypoxia is usually treated with oxygen therapy. This information is not intended to replace advice given to you by your health care provider. Make sure you discuss any questions you have with your health care provider. Document Revised: 01/25/2022 Document Reviewed: 01/25/2022 [employer] Patient Education 2023 [employer]. 04/11/2024 19:04:32 Acute Respiratory Failure, Adult Acute Respiratory Failure, Adult Acute respiratory failure is when one or both of these things happen: Oxygen cannot pass from the lungs into the blood, causing the blood oxygen level to drop. Loss of blood oxygen means tissues and organs may not work well. A gas called carbon dioxide cannot pass from the blood into the lungs so the body can get rid of it. The buildup of carbon dioxide can damage the tissues and organs in the body. Acute respiratory failure happens fast. It is an emergency and needs to be treated right away. What are the causes? Common causes of respiratory failure that may cause low oxygen levels include: Trauma to the lung, chest, or ribs, or to the tissues around the lung. Lung conditions, such as pneumonia, asthma, or blood clots in the lungs (pulmonary embolism). Breathing in harmful chemicals, smoke, water, or vomit. A widespread infection (sepsis). Heart attack. Common causes of respiratory failure that cause a buildup of carbon dioxide include: Stroke. A spinal cord injury. Drug or alcohol overdose. Sepsis. The heart stopping all of a sudden (cardiac arrest). What increases the risk? This condition is more likely to develop in people who have: Known lung conditions, such as asthma or chronic obstructive pulmonary disease (COPD). A condition that damages or weakens the muscles, nerves, bones, or tissues that are involved in breathing, such as myasthenia gravis or Guillain Kay syndrome. A health problem that blocks the unconscious reflex that is involved in breathing, such as hypothyroidism or sleep apnea. What are the signs or symptoms? Symptoms may depend on the cause and on the levels of oxygen and carbon dioxide in your blood. Trouble breathing is the main symptom of acute respiratory failure. Other symptoms may include: Fast breathing. Making high-pitched whistling sounds when you breathe (wheezing) and grunting. Confusion or changes in behavior. Feeling tired, sleeping more than normal, or being hard to wake. Skin, lips, or fingernails that look blue (cyanosis). Feeling restless or anxious. Fast or irregular heartbeats (palpitations). How is this diagnosed? This condition may be diagnosed based on: Your medical history and a physical exam. Your health care provider will listen to your heart and lungs to check for abnormal sounds. Tests to confirm the diagnosis and find the cause of respiratory failure. Tests may include: ?Measuring the amount of oxygen in your blood (pulse oximetry). This involves placing a small device on your finger, earlobe, or toe. ?Blood tests to measure levels of blood oxygen and carbon dioxide. ?Chest X-ray. How is this treated? Treatment for this condition usually takes place in a hospital intensive care unit (ICU). Treatment depends on the cause of the condition. Treatment may include one or more of these: Oxygen given through your nose or a face mask. A device to help you breathe, such as a continuous positive airway pressure (CPAP) machine or bilevel positive airway pressure (BIPAP) machine. The device gives you oxygen and pressure. Other breathing treatments, fluids, and medicines. A breathing machine called a ventilator. This gives you oxygen and pressure to help you breathe. A tube is put into your mouth and windpipe (trachea) and connects to the ventilator. Tracheostomy placement, if you are on a ventilator for a long time. A tracheostomy is a breathing tube put through your neck into your trachea. Follow these instructions at home: Medicines Take qnom-bzm-avngqla and prescription medicines only as told by your health care provider. If you were prescribed antibiotics, take them as told by your health care provider. Do not stop using the antibiotic even if you start to feel better. General instructions Return to your normal activities as told by your health care provider. Ask your health care provider what activities are safe for you. Do not use any products that contain nicotine or tobacco. These products include cigarettes, chewing tobacco, and vaping devices, such as e-cigarettes. If you need help quitting, ask your health care provider. Keep all follow-up visits. Contact a health care provider if: Your symptoms do not improve or they get worse. Get help right away if: You are having trouble breathing. You lose consciousness. Your heart starts beating very fast. Your fingers, lips, or other areas of your body turn blue. You are confused. These symptoms may be an emergency. Get help right away. Call 911. Do not wait to see if the symptoms will go away. Do not drive yourself to the hospital. Summary Acute respiratory failure is a condition that develops fast and needs to be treated right away. The main symptom of this condition is trouble breathing. Treatment for this condition usually takes place in a hospital intensive care unit (ICU). Treatment may include oxygen, fluids, and medicines. A machine may be used to help you breathe, such as a ventilator. Contact a health care provider if your symptoms do not improve or if they get worse. This information is not intended to replace advice given to you by your health care provider. Make sure you discuss any questions you have with your health care provider. Document Revised: 09/02/2022 Document Reviewed: 09/02/2022 [employer] Patient Education 2023 [employer]. Follow Up Care 04/11/2024 15:52:04 With:RASHID MCKEON [address] [place] [address] Business (1) When:04/14/2024 19:03:07 Comments:Call the office of your primary care doctor to arrange for follow-up within the above-stated timeframe. Follow-up with your primary care doctor about this ED visit. You should review your labs, imaging, and diagnoses from this ED visit with your primary care physician. There are occasionally non-emergent findings that require additional follow-up after your ED visit. If you were prescribed medications you should discuss possible side-effects and drug interactions with your pharmacist. Call 911 or go to the nearest Emergency Department if you develop any new or worsening symptoms.Seek immediate medical attention if you develop: worsening shortness of breath, difficulty breathing, chest pain, nausea, vomiting, weakness, numbness, tingling, excessive sweating, loss of motion in your arms or legs, or any new or worsening symptoms.There are no hard feelings for you leaving AGAINST MEDICAL ADVICE. You may return to continue your care at any time.Use a breathing treatment every 4 hours. Take steroids as prescribed. [facility] 04-11-2024 Note ED Patient Education Note Pulmonary Medicine Asthma, Adult Asthma is a long-term (chronic) condition that causes recurrent episodes in which the lower airways in the lungs become tight and narrow. The narrowing is caused by inflammation and tightening of the smooth muscle around the lower airways. Asthma episodes, also called asthma attacks or asthma flares, may cause coughing, making high-pitched whistling sounds when you breathe, most often when you breathe out (wheezing), shortness of breath, and chest pain. The airways may produce extra mucus caused by the inflammation and irritation. During an attack, it can be difficult to breathe. Asthma attacks can range from minor to life-threatening. Asthma cannot be cured, but medicines and lifestyle changes can help control it and treat acute attacks. It is important to keep your asthma well controlled so the condition does not interfere with your daily life. What are the causes? This condition is believed to be caused by inherited (genetic) and environmental factors, but its exact cause is not known. What can trigger an asthma attack? Many things can bring on an asthma attack or make symptoms worse. These triggers are different for every person. Common triggers include: ? Allergens and irritants like mold, dust, pet dander, cockroaches, pollen, air pollution, and chemical odors. ? Cigarette smoke. ? Weather changes and cold air. ? Stress and strong emotional responses such as crying or laughing hard. ? Certain medications such as aspirin or beta blockers. ? Infections and inflammatory conditions, such as the flu, a cold, pneumonia, or inflammation of the nasal membranes (rhinitis). ? Gastroesophageal reflux disease (GERD). What are the signs or symptoms? Symptoms may occur right after exposure to an asthma trigger or hours later and can vary by person. Common signs and symptoms include: ? Wheezing. ? Trouble breathing (shortness of breath). ? Excessive nighttime or refrigerating engineer head coughing. ? Chest tightness. ? Tiredness (fatigue) with minimal activity. ? Difficulty talking in complete sentences. ? Poor exercise tolerance. How is this diagnosed? This condition is diagnosed based on: ? A physical exam and your medical history. ? Tests, which may include: ? Lung function studies to evaluate the flow of air in your lungs. ? Allergy tests. ? Imaging tests, such as X-rays. How is this treated? There is no cure, but symptoms can be controlled with proper treatment. Treatment usually involves: ? Identifying and avoiding your asthma triggers. ? Inhaled medicines. Two types are commonly used to treat asthma, depending on severity: ? Controller medicines. These help prevent asthma symptoms from occurring. They are taken every day. ? Fast-acting reliever or rescue medicines. These quickly relieve asthma symptoms. They are used as needed and provide short-term relief. ? Using other medicines, such as: ? Allergy medicines, such as antihistamines, if your asthma attacks are triggered by allergens. ? Immune medicines (immunomodulators). These are medicines that help control the immune system. ? Using supplemental oxygen. This is only needed during a severe episode. ? Creating an asthma action plan. An asthma action plan is a written plan for managing and treating your asthma attacks. This plan includes: ? A list of your asthma triggers and how to avoid them. ? Information about when medicines should be taken and when their dosage should be changed. ? Instructions about using a device called a peak flow meter. A peak flow meter measures how well the lungs are working and the severity of your asthma. It helps you monitor your condition. Follow these instructions at home: ? Take hqhm-wnq-olfhxwi and prescription medicines only as told by your health care provider. ? Stay up to date on all vaccinations as recommended by your healthcare provider, including vaccines for the flu and pneumonia. ? Use a peak flow meter and keep track of your peak flow readings. ? Understand and use your asthma action plan to address any asthma flares. ? Do not smoke or allow anyone to smoke in your home. Contact a health care provider if: ? You have wheezing, shortness of breath, or a cough that is not responding to medicines. ? Your medicines are causing side effects, such as a rash, itching, swelling, or trouble breathing. ? You need to use a reliever medicine more than 2?3 times a week. ? Your peak flow reading is still at 50?79% of your personal best after following your action plan for 1 hour. ? You have a fever and shortness of breath. Get help right away if: ? You are getting worse and do not respond to treatment during an asthma attack. ? You are short of breath when at rest or when doing very little physical activity. ? You have difficulty eating, drinking, or talking. ? You have chest pain or tightness. ? You develop a fast heartb (more content not included)... [facility] 04-11-2024 Evaluation + Plan note Extrac verito from: Title:ED Note Author:Felipe Garcias DO Date: Acute asthma exacerbation, ( J45.901: Unspecified asthma with (acute) exacerbation)Asthma exacerbation Acute hypoxemic respiratory failure, (J96.01: Acute respiratory failure with hypoxia)Acute respiratory failure with hypoxia Left against medical advice (Z53.29: Procedure and treatment not carried out because of patient's decision for other reasons) Orders: albuterol, 180 mcg, 2 puff(s), Aerosol, Inhalation, q6hr PRN Shortness of breath or wheezing, STAT, Start date 04/11/24 19:05:00 EDT, teach and treat only albuterol, 2 puff(s), Inhalation, q4hr Cough and Congestion, 6.7 gm, Refill(s) 0, [facility], 180.3, cm, 04/11/24 16:28:00 EDT, Height/Length Dosing, 173, kg, 04/11/24 16:28:00 EDT, Weight Dosing albuterol-ipratropium, 18 mL, Soln-Inh, Inhalation, Once, Stop date 04/11/24 19:05:00 EDT, STAT, Start date 04/11/24 19:05:00 EDT albuterol-ipratropium, 3 mL, Soln-Inh, Inhalation, Once, Stop date 04/11/24 16:30:00 EDT, STAT, Start date 04/11/24 16:30:00 EDT albuterol-ipratropium, 6 mL, Soln-Inh, Inhalation, Once, Stop date 04/11/24 16:44:00 EDT, STAT, Start date 04/11/24 16:44:00 EDT dexamethasone, 8 mg = 2 tab(s), Tab, Oral, Once, Stop date 04/11/24 19:05:00 EDT, STAT, Start date 04/11/24 19:05:00 EDT, 04/11/24 19:05:00 EDT methylPREDNISolone, 125 mg = 2 mL, Injection, IV Push, Once, Stop date 04/11/24 17:35:00 EDT, STAT, Start date 04/11/24 17:35:00 EDT, 04/11/24 17:35:00 EDT predniSONE, 60 mg = 3 tab(s), Oral, Daily, X 5 day(s), # 15 tab(s), Refills(s) 0, Pharmacy: [facility], 180.3, cm, 04/11/24 16:28:00 EDT, Height/Length Dosing, 173, kg, 04/11/24 16:28:00 EDT, Weight Dosing Basic Metabolic Panel CBC w/ Auto Diff eGFR Extra Blue Tube Extra SST Tube XR Chest Single View [facility] 09-04-2024 History of Present illness Narrative* Rashid Mckeon MD - 03/13/2024 7:44 AM EDTAssociated Problem(s): JAYJAY (generalized anxiety disorder) (CMS/HCC) Symptoms worsening for months and start celexa. Warned will take 2-3 weeks to notice improvement inmood. Use hydroxyzine PRN. * Rashid Mckeon MD - 03/13/2024 7:44 AM EDTAssociated Problem(s): Major depressive disorder, recurrent episode, mild (HCC) (CMS/HCC) Symptoms worsening for months and start celexa. Warned will take 2-3 weeks to notice improvement inmood. * Rashid Mckeon MD - 03/13/2024 7:44 AM EDTAssociated Problem(s): Annual physical exam Due for labs. Discussed proper diet and regular aerobic exercise. Need aerobic exercise 5-6 days a week for 30 minutes at a time. Smaller portions and limit total calories. Colonoscopy after age 45. Tetanus every 10 years. Advised not to smoke. Discussed daily Aspirin therapy. * Rashid Mckeon MD - 03/13/2024 7:00 AM EDT Images from the original note were not included. Subjective Patient ID: Earl Shaffer is a 29 y.o. male who presents for Follow-up (Mental health). Presents for annual PE. Weight down 5 pounds over past year. Active at work but no regular exerciseor activity at home. Not watching diet or trying to eat healthy. Not limiting portions or snacking.Not trying to limit total daily calories. Due for labs. C/o worsening mental health. At times down and sad but mild. C/o nervous and worry all the time. Stressed out and overwhelmed. Thought racing and hard to clear mind. Pro, irritable and snapping at others. Easily upset and overreact. Frequentmood swings and affecting work and relationship with others. Never on medication for mental health. Review of Systems Constitutional: Negative for fatigue. [...] There is no guarding or rebound. Musculoskeletal: General: Normal range of motion. Left lower leg: No edema. Neurological: General: No focal deficit present. Mental Status: He is alert. Cranial Nerves: No cranial nerve deficit. Deep Tendon Reflexes: Reflexes normal. Assessment/Plan Problem List Items Addressed This Visit Annual physical exam - Primary Due for labs. Discussed proper diet and regular aerobic exercise. Need aerobic exercise 5-6 days a week for 30 minutes at a time. Smaller portions and limit total calories. Colonoscopy after age 45. Tetanus every 10 years. Advised not to smoke. Discussed daily Aspirin therapy. Relevant Orders Hemoglobin A1c Basic metabolic panel CBC and differential Hepatic function panel Lipid panel TSH Major depressive disorder, recurrent episode, mild (HCC) (CMS/HCC) Symptoms worsening for months and start celexa. Warned will take 2-3 weeks to notice improvement inmood. Relevant Medications citalopram (CeleXA) 20 MG tablet JAYJAY (generalized anxiety disorder) (CMS/HCC) Symptoms worsening for months and start celexa. Warned will take 2-3 weeks to notice improvement inmood. Use hydroxyzine PRN. Relevant Medications hydrOXYzine HCl (Atarax) 25 MG tablet documented in this encounterCox [id number] Hospital Discharge instructions Patient Education 02/01/2022 12:47:02 Varicose Veins [...] way your varicose veins look, you may chooseto have a procedure to close the varicose [...] 04/05/2006 Document Revised: 08/22/2019 Document Reviewed: 07/19/2017 [employer] Patient Education 2020 [employer]. Follow Up Care 08/04/2021 13:56:06 With:Lanre MEADE Address: [address] [place], [place] [id number]- When:Within 6 Month(s) [facility] 12-16-2021 Evaluation note* Encounter Date Diagnosis Assessment Notes Treatment Notes Treatment Clinical Notes Jun, Contact with and (suspected) exposure to other viral communicable diseases (ICD-10 - Z20.828) Jun, Other Additional time spent conducting pre-visit phone call, screening for symptoms, instructions on social distancing, application and removal of PPE, and cleaning of examination room, equipment and supplies was preformed. Patient education given for testing methodology and results. Patient care instructions given in writting by [facility] document. [facility] Other Evaluation + Plan note Future Appointments Appointment Date:08/05/2022 11:00:00 AM Scheduled Provider:Lanre MEADE Location:[facility] [place] Appoint[place] Type:[facility] [place] Evaluation note* Diagnosis Annual physical exam- Primary Routine general medical examination at a health care facility Major depressive disorder, recurrent episode, mild (HCC) (CMS/HCC) Major depressive disorder, recurrent episode, mild JAYJAY (generalized anxiety disorder) ([facility]/HCC) Generalized anxiety disorder Morbid obesity due to excess calories ([facility]) Type 2 diabetes mellitus with hyperglycemia, without long-term current use of insulin ([facility])- Primary Major depressive disorder, recurrent episode, mild (HCC) ([facility]/HCC) Major depressive disorder, recurrent episode, mild JAYJAY (generalized anxiety disorder) ([facility]) Generalized anxiety disorder documented in this encounter [facility]* Diagnosis Annual physical exam- Primary Routine general medical examination at a health care facility Major depressive disorder, recurrent episode, mild (HCC) ([facility]/HCC) Major depressive disorder, recurrent episode, mild JAYJAY (generalized anxiety disorder) ([facility]) Generalized anxiety disorder Morbid obesity due to excess calories ([facility]) Type 2 diabetes mellitus with hyperglycemia, without long-term current use of insulin ([facility])- Primary Major depressive disorder, recurrent episode, mild (HCC) ([facility]) Major depressive disorder, recurrent episode, mild JAYJAY (generalized anxiety disorder) ([facility]) Generalized anxiety disorder Type 2 diabetes mellitus with hyperglycemia, without long-term current use of insulin ([facility])- Primary Major depressive disorder, recurrent episode, mild (HCC) ([facility]) Major depressive disorder, recurrent episode, mild JAYJAY (generalized anxiety disorder) ([facility]) Generalized anxiety disorder Mild intermittent asthma without complication ([facility]) Class 3 severe obesity due to excess calories with serious comorbidity and body mass index (BMI) of 50.0 to 59.9 in adult ([facility]) documented in this encounter [facility]* Diagnosis Annual physical exam- Primary Routine general medical examination at a health care facility Major depressive disorder, recurrent episode, mild (HCC) ([facility]) Major depressive disorder, recurrent episode, mild JAYJAY (generalized anxiety disorder) ([facility]) Generalized anxiety disorder Morbid obesity due to excess calories ([facility]) documented in [facility] encounter [facility]* Diagnosis Type 2 diabetes mellitus with hyperglycemia, without long-term current use of insulin ([facility])- Primary documented in this encounter [facility]* Diagnosis Annual physical exam- Primary Routine general medical examination at a health care facility Major depressive disorder, recurrent episode, mild (HCC) ([facility]) Major depressive disorder, recurrent episode, mild JAYJAY (generalized anxiety disorder) ([facility]/HCC) Generalized anxiety disorder Morbid obesity due to excess calories (CMS/HCC) Type 2 diabetes mellitus with hyperglycemia, without long-term current use of insulin (CMS/HCC)- Primary Major depressive disorder, recurrent episode, mild (HCC) (CMS/HCC) Major depressive disorder, recurrent episode, mild JAYJAY (generalized anxiety disorder) (CMS/HCC) Generalized anxiety disorder Type 2 diabetes mellitus with hyperglycemia, without long-term current use of insulin (CMS/HCC)- Primary Major depressive disorder, recurrent episode, mild (HCC) (CMS/HCC) Major depressive disorder, recurrent episode, mild JAYJAY (generalized anxiety disorder) (CMS/HCC) Generalized anxiety disorder Mild intermittent asthma without complication (CMS/HCC) Class 3 severe obesity due to excess calories with serious comorbidity and body mass index (BMI) of 50.0 to 59.9 in adult ([facility]) Type 2 diabetes mellitus with hyperglycemia, without long-term current use of insulin ([facility]) documented in this encounter [facility] Healthcare[facility] note* Diagnosis Annual physical exam- Primary Routine general medical examination at a health care facility Major depressive disorder, recurrent episode, mild (HCC) ([facility]/HCC) Major depressive disorder, recurrent episode, mild JAYJAY (generalized anxiety disorder) ([facility]/HCC) Generalized anxiety disorder Morbid obesity due to excess calories ([facility]) Type 2 diabetes mellitus with hyperglycemia, without long-term current use of insulin (CMS/HCC)- Primary Major depressive disorder, recurrent episode, mild (HCC) (CMS/HCC) Major depressive disorder, recurrent episode, mild JAYJAY (generalized anxiety disorder) ([facility]/HCC) Generalized anxiety disorder Type 2 diabetes mellitus with hyperglycemia, without long-term current use of insulin ([facility]/HCC)- Primary Major depressive disorder, recurrent episode, mild (HCC) (CMS/HCC) Major depressive disorder, recurrent episode, mild JAYJAY (generalized anxiety disorder) (CMS/HCC) Generalized anxiety disorder Mild intermittent asthma without complication (CMS/HCC) Class 3 severe obesity due to excess calories with serious comorbidity and body mass index (BMI) of 50.0 to 59.9 in adult ([facility]) Type 2 diabetes mellitus with hyperglycemia, without long-term current use of insulin (CMS/HCC)- Primary Major depressive disorder, recurrent episode, mild (HCC) (CMS/HCC) Major depressive disorder, recurrent episode, mild JAYJAY (generalized anxiety disorder) (CMS/HCC) Generalized anxiety disorder Mild intermittent asthma without complication (CMS/HCC) Class 3 severe obesity due to excess calories with serious comorbidity and body mass index (BMI) of 50.0 to 59.9 in adult ([facility]) documented in this encounter [facility] HealthcareEvaluation note* Diagnosis Annual physical exam- Primary Routine general medical examination at a health care facility Major depressive disorder, recurrent episode, mild (HCC) ([facility]) Major depressive disorder, recurrent episode, mild JAYJAY (generalized anxiety disorder) ([facility]) Generalized anxiety disorder Morbid obesity due to excess calories ([facility]) Type 2 diabetes mellitus with hyperglycemia, without long-term current use of insulin ([facility])- Primary Major depressive disorder, recurrent episode, mild (HCC) ([facility]) Major depressive disorder, recurrent episode, mild JAYJAY (generalized anxiety disorder) ([facility]) Generalized anxiety disorder Type 2 diabetes mellitus with hyperglycemia, without long-term current use of insulin ([facility])- Primary Major depressive disorder, recurrent episode, mild (HCC) ([facility]) Major depressive disorder, recurrent episode, mild JAYJAY (generalized anxiety disorder) ([facility]) Generalized anxiety disorder Mild intermittent asthma without complication ([facility]) Class 3 severe obesity due to excess calories with serious comorbidity and body mass index (BMI) of 50.0 to 59.9 in adult ([facility]) Type 2 diabetes mellitus with hyperglycemia, without long-term current use of insulin ([facility])- Primary Major depressive disorder, recurrent episode, mild (HCC) ([facility]) Major depressive disorder, recurrent episode, mild JAYJAY (generalized anxiety disorder) ([facility]) Generalized anxiety disorder Mild intermittent asthma without complication ([facility]) Class 3 severe obesity due to excess calories with serious comorbidity and body mass index (BMI) of 50.0 to 59.9 in adult ([facility]) Major depressive disorder, recurrent episode, mild (HCC) ([facility])- Primary Major depressive disorder, recurrent episode, mild documented in this encounter [facility] HealthcareEvaluation note* Diagnosis Annual physical exam- Primary Routine general medical examination at a health care facility Major depressive disorder, recurrent episode, mild (HCC) ([facility]) Major depressive disorder, recurrent episode, mild JAYJAY (generalized anxiety disorder) ([facility]) Generalized anxiety disorder Morbid obesity due to excess calories ([facility]) Type 2 diabetes mellitus with hyperglycemia, without long-term current use of insulin (CMS/HCC)- Primary Major depressive disorder, recurrent episode, mild (HCC) (CMS/HCC) Major depressive disorder, recurrent episode, mild JAYJAY (generalized anxiety disorder) (CMS/HCC) Generalized anxiety disorder Type 2 diabetes mellitus with hyperglycemia, without long-term current use of insulin (CMS/HCC)- Primary Major depressive disorder, recurrent episode, mild (HCC) (CMS/HCC) Major depressive disorder, recurrent episode, mild JAYJAY (generalized anxiety disorder) (CMS/HCC) Generalized anxiety disorder Mild intermittent asthma without complication (CMS/HCC) Class 3 severe obesity due to excess calories with serious comorbidity and body mass index (BMI) of 50.0 to 59.9 in adult Type 2 diabetes mellitus with hyperglycemia, without long-term current use of insulin (CMS/HCC)- Primary Major depressive disorder, recurrent episode, mild (HCC) (CMS/HCC) Major depressive disorder, recurrent episode, mild JAYJAY (generalized anxiety disorder) (CMS/HCC) Generalized anxiety disorder Mild intermittent asthma without complication (CMS/HCC) Class 3 severe obesity due to excess calories with serious comorbidity and body mass index (BMI) of 50.0 to 59.9 in adult Type 2 diabetes mellitus with hyperglycemia, without long-term current use of insulin (CMS/HCC)- Primary Major depressive disorder, recurrent episode, mild (HCC) (CMS/HCC) Major depressive disorder, recurrent episode, mild JAYJAY (generalized anxiety disorder) (CMS/HCC) Generalized anxiety disorder Mild intermittent asthma without complication (CMS/HCC) Class 3 severe obesity due to excess calories with serious comorbidity and body mass index (BMI) of 50.0 to 59.9 in adult documented in this encounter [facility] Narrative - Reported* Type Description Date Medical History ashma Surgical History pnuemonia Hospitalization History see above [facility] Other Hospital course Narrative No data available for this section [facility] Discharge instructions No data available for this section [facility] Progress note No data available for this section [facility] Summary Purpose Family History No Family History Records FoundNo Family History Records FoundNo Family History Records FoundNo Family History Records Found No data available for this section No Family History Records FoundNo Family History Records FoundNo Family History Records FoundNo Family History Records FoundNo Family History Records FoundNo Family History Records FoundNo Family History Records FoundNo Family History Records FoundNo Family History Records Found No data available for this section No data available for this section No Family History Records FoundNo Family History [...] Records FoundNo Status Records FoundNo Status Records FoundNo Status Records FoundNo Status Records FoundNo Status Records FoundNo Status Records FoundNo Status Records FoundNo Status Records FoundNo Status Records FoundNo Status Records FoundNo Status Records FoundNo Status Records FoundNo Status Records FoundNo Status Records FoundNo Status Records Found INFORMATION SOURCE (unrecogn ized section and content) DATE CREATED AUTHOR 07/08/2018 Griselda Echeverria [facility]idi DATE CREATED AUTHOR AUTHOR'S ORGANIZ ATION 11/11/2022 [facility] DATE CREATED AUTHOR AUTHOR'S ORGANIZ ATION 03/16/2024 [facility] DATE CREATED AUTHOR AUTHOR'S ORGANIZ ATION 04/13/2024 [facility] DATE CREATED AUTHOR AUTHOR'S ORGANIZ ATION 04/16/2024 [facility] DATE CREATED AUTHOR AUTHOR'S ORGANIZ ATION 06/29/2024 [facility] DATE CREATED AUTHOR AUTHOR'S ORGANIZ ATION 06/30/2024 [facility] DATE CREATED AUTHOR AUTHOR'S ORGANIZ ATION 08/29/2024 [facility] EPIC REASON FOR VISIT (unrecogniz ed section and content) Reason Comments Follow-up 1 m Reason Comments Follow-up 2 M Reason Comments Follow-up Mental health Reason Onset Date Comments Med Refill 09/10/2024 Reason Comments Follow-up 3m f/u Care Team (unrecognized sect ion and content) Tennis Instructor Relationship Specialty Start Date End Date Rashid Mckeon MD [address] [place] [phone] PCP - General Family Medicine 03/13/24 Tennis Instructor Relationship Specialty Start Date End Date Rashid Mckeon MD [address] [place] [address] PCP - General Family Medicine 03/13/24 Tennis Instructor Relationship Specialty Start Date End Date Rashid Mckeon MD [address] [place] [phone] PCP - General Family Medicine 03/13/24 Tennis Instructor Relationship Specialty Start Date End Date Rashid Mckeon MD [address] [place] [phone] PCP - General Family Medicine 03/13/24 Tennis Instructor Relationship Specialty Start Date End Date Rashid Mckeon MD [address] [place] [address] PCP - General Family Medicine 03/13/24 Tennis Instructor Relationship Specialty Start Date End Date Rashid Mckeon MD [address] [place] [address] PCP - General Family Medicine 03/13/24 Tennis Instructor Relationship Specialty Start Date End Date Rashid Mckeon MD [address] [place] [address] PCP - General Family Medicine 03/13/24 Tennis Instructor Relationship Specialty Start Date End Date Rashid Mckeon MD [address] [place] [phone] PCP - General [facility] 03/13/24 Tennis Instructor Relationship Specialty Start Date End Date Rashid Mckeon MD [address] [place] [phone] PCP - General [facility] 03/13/24 Tennis Instructor Relationship Specialty Start Date End Date Rashid Mckeon MD [address] [place] [phone] PCP - General [facility] 03/13/24 Tennis Instructor Relationship Specialty Start Date End Date Rashid Mckeon MD [address] [place] [phone] PCP - [facility] 03/13/24 Tennis Instructor Relationship Specialty Start Date End Date Rashid Mckeon MD [address] [place] [phone] PCP - General [facility] 03/13/24 Tennis Instructor Relationship Specialty Start Date End Date Rashid Mckeon MD [address] [place] [phone] PCP - General [facility] 03/13/24 Tennis Instructor Relationship Specialty Start Date End Date Rashid Mckeon MD [address] [place] [phone] PCP - General [facility] 03/13/24 FOR RECORDS PERTAINING TO PATIENTS WHO ARE [...] BE BASED ON THE PRIMARY CLINICAL RECORDS. [facility] [email or web address] [facility]. provides no warranty or guarantee of the accuracy or completeness of information in this document.
[2024-11-27 15:37] LABS: Estimated Average Glucose 171 mg/dL; Glycohemoglobin A1C 7.6 % (4.5-6.2)
[2024-11-27 15:53] LABS: Creatinine Urine Random 233.51 mg/dL (20.00-300.00); Microalbumin Urine Random 15.2 mg/dL (<=30.0)
== END 2024-11-27 14:47 | disposition home or self-care (01) ==
PROVIDERS: PCP Radiology Diagnostic Radiology; Visit Provider Family Medicine
DX: E11.65 Type 2 diabetes mellitus with hyperglycemia (principal)
CPT/HCPCS: 36415; 82043; 82570; 83036

== ENCOUNTER 2025-03-12 15:00 | Outpatient (OUT) | payer OTHER, SELFPAY ==
[2025-03-12 16:01] LABS: Hematocrit 47.3 % (42.0-54.0); Hemoglobin 15.3 g/dL (14.0-18.0); Immature Granulocytes Abs Auto 0.01 10^3/uL (0.00-0.03); Immature Granulocytes Pct Auto 0.1 % (0.0-0.5); Lymphocytes Absolute Auto 3.8 10^3/uL (1.2-3.8); Mean Corpuscular HGB Conc 32.3 g/dL (29.9-35.2); Mean Corpuscular Hemoglobin 28.9 pg (25.9-34.0); Mean Corpuscular Volume 89.2 fL (80.0-94.0); Platelet Count 187 10^3/uL (150-450); Red Blood Count 5.30 10^6/uL (4.70-6.10); White Blood Count 8.5 10^3/uL (4.0-11.0)
[2025-03-12 16:24] LABS: Alanine Aminotransferase 40 U/L (16-63); Albumin Globulin Ratio 1.0; Albumin Level 3.7 g/dL (3.4-5.0); Alkaline Phosphatase 67 U/L (46-116); Anion Gap 11.8; Aspartate Amino Transferase 23 U/L (15-37); Blood Urea Nitrogen 14.0 mg/dL (7.0-18.0); Calcium 8.7 mg/dL (8.5-10.1); Carbon Dioxide 30.0 mmol/L (21.0-32.0); Chloride 106 mmol/L (98-107); Cholesterol 98 mg/dL (<=200); Estimated GFR (African America >60 (>=60 mL/min/1.73m^2); Estimated GFR (Non-African Ame >60 (>=60 mL/min/1.73m^2); Globulin 3.6 g/dL; HDL Cholesterol 28 mg/dL (40-60); Potassium 3.8 mmol/L (3.5-5.1); Sodium 144 mmol/L (136-145); TSH W/ REFLEX FT4 1.632 uIU/mL (0.358-3.740); Total Protein 7.3 g/dL (6.4-8.2); Triglycerides 102 mg/dL (<=150); VLDL CHOLESTEROL 20.4 mg/dL
[2025-03-12 16:50] LABS: Glucose 49 mg/dL (74-106)
--- OUTSIDE RECORDS SUMMARY | 2025-03-12 19:11 | XMS_ITS | CCD ---
Author Organization [facility]iniSy[facility] Care Team Providers Care Warehouse Processor Name Role Phone MONA BAKER Unavailable Unavailable SUDHA, VESELIN Unavailable Unavailable Madeline Muñoz Unavailable Lanre LAWRENCE Primary Care Physician [phone] REQUEST, DR NONE LISTED Primary Care Unavaila ble NADERER, DR RASHID Vaz Attending Unavailable NADERER, DR RASHID Vaz Admitting Unavailable REINECK, DR LAM Karimi Attending Unavailabl e REINECK, DR LAM Karimi Consulting Unavailabl e REINECK, DR LAM Karimi Admitting Unavailabl e REQUEST, DR NONE LISTED Primary Care Unavaila RASHID Metcalf Attending Unavailable RASHID MCKEON Admitting Unavailable RASHID MCKEON Primary Care Physician [phone] RASHID MCKEON Admitting Unavailable RASHID MCKEON Attending Unavailable Felipe Garcias Attending Unavailable Arnulfo Mills Attending Unavailable Arnulfo Mills Admitting Unavailable Rashid Mckeon MD Primary Care Provider RASHID MCKEON Admitting Unavailable RASHID MCKEON Attending Unavailable Felipe Garcias Admitting Unavailable Felipe Garcias Attending Unavailable RASHID MCKEON Attending Unavailable RASHID MCKEON Admitting Unavailable RASHID MCKEON Attending Unavailable RASHID MCKEON Attending Unavailable RASHID MCKEON Attending Unavailable MIKE, RASHID Attending Unavailable RASHID MCKEON Attending Unavailable RASHID MCKEON Attending Unavailable NO FAMILY, PHYSICIAN Primary Care Provider Unava ilRashid Holley MD Attending Provider [phone] Allergies Allergy Classification Reported Allergen(s) Allergy Type Date of Onset Reaction(s) Facility (8 sources) Bee/Wasp/Ant venom; Translations: [Bee Stings] Allergy to substance Swelling (finding) [facility] (4 sources) No Known Medication Allergies; Translations: [No Known Medication Allergies] Propensity to adverse reactions (disorder) [facility] Repository NEGATED: Highlighted row has been ruled out! (1 source) Drug allergy [facility] NEGATED: Highlighted row has been ruled out! (1 source) Drug allergy [facility] NEGATED: Highlighted row has been ruled out! (1 source) Drug allergy [facility] NEGATED: Highlighted row has been ruled out! (1 source) Drug allergy [facility] Medications Current Medications Medication Drug Class(es) Dates Sig (Normalized) Sig (Original) [id number] 200 actuat albuterol 0.09 mg/actuat metered dose inhaler (20 sources) beta2-Adrenergic Agonist Start: 03-11-2025 Albuterol Sulfate 90 mcg/actuation HFA aerosol inhaler Active INHALATION March 11, 2025 12:00am Complies with drug therapy Start: 11-21-2024 albuterol (2.5 MG/3ML) 0.083% nebulizer solution Indications: Mild intermittent asthma without complication (HCC) Take 3 mL (2.5 mg) by nebulization every 6 (six) hours if needed for shortness of breath 75 mL 2 11/21/2024 Active Start: 11-21-2024 take 2 puff(s) by in halation every four hours for wheezing albuterol HFA 90 mcg/act inhaler Indications: Mild intermittent asthma without complication (HCC) Inhale 2 puffs every 4 (four) hours [...] q6hr for wheezing, 60 EA, Refill(s) 0, [facility]acy #[id number], 180, cm, 02/01/22 11:53:00 EDT, Height/Length Dosing, 170.9, kg, 02/01/22 11:53:00 EDT, Weight Dosing Start Date: 05/03/23 Status: Ordered Start: 12-15-2021 take 2.5 mg by inhal ation every six hours for wheezing albuterol 0.083% Inh Mabel 3 mL 2.5 mg, 3 mL, Inhalation, q6hr for wheezing, 100 EA, Refill(s) 2, [facility]pharm[id number], 180, cm, 08/04/21 13:28:00 EST, [...] Cough and Congestion, 6.7 gm, Refill(s) 0, [facility], 180.3, cm, 04/11/24 16:28:00 EDT, [...] breath or wheezing, 60 EA, Refill(s) 0, [facility], 180.3, cm, 04/11/24 16:28:00 EDT, Height/Length Dosing, 173, kg, 04/11/24 16:28:00 EDT, Weight Dosing Start Date: 04/11/24 Status: Ordered atorvastatin 40 mg oral tablet (20 sources) HMG-CoA Reductase Inhibitor Start: 03-11-2025 take 1 tablet by mouth once daily Atorvastatin 40 mg tablet Active 40 MG PO Daily March 11, 2025 12:00am Complies with drug therapy Start: 11-21-2024 take 1 tablet by juliette th at bedtime atorvastatin (Lipitor) 40 MG tablet Indications: Type 2 diabetes mellitus with hyperglycemia, without long-term current use of insulin ([facility]) Take 1 tablet (40 mg) by mouth [...] Suppl (Blood Glucose Monitor System) w/Device kit (20 sources) Start: 03-14-2024 Blood Glucose Monitoring Suppl (Blood Glucose Monitor System) w/Device kit Indications: Type 2 diabetes mellitus with hyperglycemia, without long-term current use of insulin ([facility]) 1 each Daily 1 kit 03/14/2024 Active Start: 03-14-2024 Blood Glucose Monitoring Suppl (Blood Glucose Monitor System) w/Device kit Indications: Type 2 diabetes mellitus with hyperglycemia, without long-term current use of insulin ([facility]) 1 each Daily 1 kit 03/14/2024 Active [...] Major depressive disorder, recurrent episode, mild (HCC) ([facility]) Take 1 tablet (20 mg) by mouth [...] swelling, # 30 tab(s), Refills(s) 2, Pharmacy: [facility] #[id number], 180, cm, 02/01/22 11:53:00 EDT, Height/Length Dosing, 170.9, kg, 02/01/22 11:53:00 EDT, Weight Dosing Start Date: 04/13/22 Status: Ordered Start: 12-15-2021 take 1 tablet by juliette th once daily as needed furosemide 20 mg Tab 20 mg = 1 tab(s), Oral, Daily, PRN leg swelling, # 30 tab(s), Refills(s) 2, Pharmacy: [facility]pharm[facility] #[id number], 180, cm, 08/04/21 13:28:00 EST, Height/Length Dosing, 182.9, kg, 08/04/21 13:28:00 EST, Weight Dosing Start Date: 12/15/21 Status: Ordered glipiZIDE 10 mg oral tablet (20 sources) Sulfonylurea Start: 03-11-2025 take 1 tablet by mouth once daily Glipizide 10 mg tablet Active 10 MG PO Daily March 11, 2025 12:00am Complies with drug therapy Start: 11-21-2024 take 1 tablet by juliette th in the morning glipiZIDE (Glucotrol) 10 MG tablet Indications: Type 2 diabetes mellitus with hyperglycemia, without long-term current use of insulin ([facility]) Take 1 tablet (10 mg) by mouth [...] MG tablet Indications: JAYJAY (generalized anxiety disorder) ([facility]) Take 1 tablet (25 mg) by mouth [...] breath or wheezing, 60 EA, Refill(s) 0, [id number], 180, cm, 02/01/22 11:53:00 EDT, Height/Length Dosing, 170.9, kg, 02/01/22 11:53:00 EDT, Weight Dosing Start Date: 05/03/23 Status: Ordered Start: 08-04-2021 take 100 doses by in halation four times daily ipratropium 0.02% Inh Mabel 2.5 mL 500 microgram, 2.5 mL, Inhalation, QID Shortness of breath or wheezing, 100 EA, Refill(s) 11, [id number], 180, cm, 08/04/21 13:28:00 EST, Height/Length Dosing, 182.9, kg, 08/04/21 13:28:00 EST, Weight Dosing Start Date: 08/04/21 Status: Ordered 24 hr metFORMIN hydrochloride 500 mg extended release oral tablet (20 sources) Biguanide Start: 03-14-2024 take 1 tablet by mouth every twenty-four hours at mealtime metFORMIN XR (Glucophage-XR) 500 MG 24 hr tablet Indications: Type 2 diabetes mellitus with hyperglycemia, without long-term current use of insulin (HCC) Take 1 tablet (500 mg) by mouth [...] BID, # 60 tab(s), Refills(s) 11, Pharmacy: [id number], 180, cm, 02/01/22 11:53:00 EDT, Height/Length Dosing, 170.9, kg, 02/01/22 11:53:00 EDT, Weight Dosing Start Date: 04/13/22 Status: Ordered Start: 08-04-2021 take 1 tablet by juliette twice daily Protonix 40 mg Tab-DR 40 mg = 1 tab(s), Oral, BID, # 60 tab(s), Refills(s) 11, Pharmacy: [facility] #[id number], 180, cm, 08/04/21 13:28:00 EST, Height/Length Dosing, 182.9, kg, 08/04/21 13:28:00 EST, Weight Dosing Start Date: 08/04/21 Status: Ordered permethrin 50 mg/ml topical cream (3 sources) Pyrethroid Start: 09-22-2023 permethrin Top 5% Crm 1 vicky, Topical, Once, 60 gram, Refill(s) 1, to skin head to feet, remove by washing after 8 to 14 hours, [facility], 180, cm, 02/01/22 11:53:00 EDT, Height/Length Dosing, 170.9, kg, 02/01/22 11:53:00 EDT, Weight Dosing Start Date: 09/22/23 Status: Ordered phentermine hydrochloride 37.5 mg oral tablet (11 sources) Sympathomimetic Amine Anorectic Start: 03-11-2025 take 1 tablet by mouth once daily Phentermine 37.5 mg tablet Active 37.5 MG PO Daily March 11, 2025 12:00am Complies with drug therapy Start: 11-27-2024 End: 03-08-2025 take 50-59.9 tablets by mouth before mealtime phentermine (Adipex-P) 37.5 MG tablet Indications: Class 3 severe obesity due to excess calories with serious comorbidity and body mass index (BMI) of 50.0 to 59.9 in adult ([facility]) Take 1 tablet (37.5 mg) by mouth in the morning. Take before meals. 30 tablet 02/06/2025 03/08/2025 Active predniSONE 20 mg oral tablet (2 sources) Start: 04-11-2024 End: 04-16-2024 take 3 tablets by mouth once daily predniSONE 20 mg Tab 60 mg = 3 tab(s), Oral, Daily, X 5 day(s), # 15 tab(s), Refills(s) 0, Pharmacy: [facility], 180.3, cm, 04/11/24 16:28:00 EDT, [...] Active traZODone hydrochloride 50 mg oral tablet (10 sources) Serotonin Reuptake Inhibitor Start: 09-17-2024 take 1 tablet by mouth at bedtime traZODone (Desyrel) 50 MG tablet Indications: Psychophysiological insomnia Take 1 tablet (50 mg) by mouth at bedtime 30 tablet 2 09/17/2024 Active 24 hr venlafaxine 150 mg extended release oral capsule (14 sources) Serotonin and Norepinephrine Reuptake Inhibitor Start: 03-11-2025 take 1 capsule by mouth once daily Venlafaxine 150 mg capsule,extended release 24hr Active 150 MG PO Daily March 11, 2025 12:00am Complies with drug therapy Start: 01-07-2025 take 1 capsule by mo uth once daily at mealtime venlafaxine XR (Effexor XR) 150 MG 24 hr capsule Indications: Major depressive disorder, recurrent episode, mild Take 1 capsule (150 mg) by mouth Daily Take with food. 30 capsule 5 01/07/2025 Active Start: 11-07-2024 End: 01-07-2025 take 1 capsule by mouth once daily at mealtime venlafaxine XR (Effexor XR) 75 MG 24 hr capsule Indications: Major depressive disorder, recurrent episode, mild Take 1 capsule (75 mg) by mouth Daily Take with food. 30 capsule 3 11/07/2024 01/07/2025 Discontinued (Reorder) Start: 09-10-2024 take 1 capsule by mo uth once daily at mealtime venlafaxine XR (Effexor [...] puff(s), Inhalation, QID, 1 EA, Refill(s) 11, [facility] #[id number], 180, cm, 02/01/22 11:53:00 EDT, Height/Length Dosing, 170.9, kg, 02/01/22 11:53:00 EDT, Weight Dosing Start Date: 04/13/22 Status: Ordered Start: 08-04-2021 take 1 dose by inhal ation four times daily albuterol HFA 90 mcg/inh MDI 2 puff(s), Inhalation, QID, 1 EA, Refill(s) 11, [id number], 180, cm, 08/04/21 13:28:00 EST, Height/Length Dosing, 182.9, kg, 08/04/21 13:28:00 EST, Weight Dosing Start Date: 08/04/21 Status: Ordered Breo Ellipta 200 mcg-25 mcg/inh inhalation powder (4 sources) Start: 02-01-2022 take 1 dose by inhalation once daily Breo Ellipta 200 mcg-25 mcg/inh inhalation powder 1 puff(s), Inhalation, Daily, 1 EA, Refill(s) 11, [id number], 180, cm, 02/01/22 11:53:00 EDT, Height/Length [...] Discontinued Start: 06-26-2024 take 1 capsule by [facility] once daily FLUoxetine (PROzac) 40 MG capsule [...] extended release oral capsule (4 sources) Start: 10-05-2022 take 1 capsule by mouth once daily as needed potassium chloride 10 mEq Cap-ER 10 mEq = 1 cap(s), Oral, Daily, PRN leg swelling, use when taking furosemide, # 30 cap(s), Refills(s) 5, Pharmacy: [id number], 180, cm, 02/01/22 11:53:00 EDT, Height/Length Dosing, 170.9, kg, 02/01/22 11:53:00 EDT, Weight Dosing Start Date: 04/13/22 Status: Ordered Start: 12-15-2021 take 1 capsule by [facility] once daily as needed potassium chloride 10 mEq Cap-ER 10 mEq = 1 cap(s), Oral, Daily, PRN leg swelling, use when taking furosemide, # 30 cap(s), Refills(s) 5, [id number] 180, cm, 08/04/21 13:28:00 EST, Height/Length [...] WITHOUT COMPLICATIONS] Onset: 09-29-2022 Chronic Esophageal disorders (20 sources) Gastroesophageal reflux disease; Translations: [Gastro-esophageal reflux disease without esophagitis] Onset: 03-13-2024 03-13-2024 Chronic Miscellaneous mental health disorders (11 sources) Psychophysiologic insomnia; Translations: [Psychophysiologic insomnia] Onset: [...] Chronic Other nutritional; endocrine; and metabolic disorders (20 sources) Severe obesity; Translations: [Class 3 severe obesity due to excess calories with serious comorbidity and body mass index (BMI) of 50.0 to 59.9 in adult ([facility])] Onset: 03-13-2024 06-26-2024 Chronic Pneumonia (except that caused by tuberculosis or sexually transmitted disease) (4 sources) Pneumonia 07-27-2018 Episodic Residual codes; unclassified (4 sources) Tobacco user 12-18-2019 Episodic Residual codes; unclassified (1 source) Refused procedure - parent's wish; Translations: [Procedure and treatment not carried out because of patient's decision for other reasons] Onset: 04-11-2024 Episodic Residual codes; unclassified (1 source) Bilateral lower limb edema; Translations: [Localized edema] 03-11-2025 Episodic Respiratory failure; insufficiency; arrest (adult) (3 [...] disorders (4 sources) Nicotine dependence 02-03-2021 Chronic Varicose veins of lower extremity (20 sources) [...] Onset: 4 03-13-2024 Episodic Residual codes; unclassified (20 sources) Edema of lower extremity; Translations: [Localized edema] Onset: 4 03-13-2024 Episodic Results Test Name Value Interpretation Reference Range Facility [facility] HEMOGLOBIN A1Con 025 Glucose [Mass/Vol] 171 mg/dL [facility] HbA1c (Bld) [Mass fraction] 7.6 % High 4.5 - 6.2 % [facility] Comment on above: ADA RECOMMENDED LIMI T 4.0 - 6.0 ADA THERAPEUTIC TARGET < 7.0 ACTION SUGGESTED > 7.0 Interpretation and review of laboratory results Abnormal [facility] CHEMISTRYOrdered By: Hilda Mas se on 06-26-2024 HbA1c (Bld) [Mass fraction] 8.7 % High <=5.9% [facility] ChemAutoSS [facility] [id number] 06-26-2024 Interpretation and review of laboratory results Abnormal [facility] Original Ordering Provider: MD [facility]ID [facility] [id number] 06-26-2024 HbA1c (Bld) [Mass fraction] 8.7 % High <=5.9 [facility] Comment on above: Performed By: #### [id number] #### [facility] [address] [place] [address] XR Chest Single Viewon 04-12 XR Chest [...] effusion. No acute osseous abnormality. Ordering Provider: Felipe Garcias FINAL REPORT Dictated: 04/12/2024 8:29 am Roger Godinez DO Signed (Electronic Signature): 04/12/2024 8:29 am Signed by: Roger Godinez DO Transcribed by: KAREN Technologist: PRANEETH Technical Comments Radiation Dose: Ka,r in mGy = na DAP = na Wet Read 04/12/2024 08:29 am EDT, Roger Godinez DO, DISAGREE Bilateral lung base infiltrate and/or atelectasis Normal [facility] BMPon 04-11-2024 Anion gap [Moles/Vol] 12 mmol/L Normal 6-16 [facility] Comment on above: Performed By: #### 2 [id number] #### [facility] [address] [place] [address] Calcium [Mass/Vol] 8.9 mg/dL Normal 8.9-11.1 [facility] Comment on above: Performed By: #### 2 [id number] #### [facility] [address] [place] [address] Chloride [Moles/Vol] 101 mmol/L Normal 101-111 [facility] Comment on above: Performed By: #### 2 [id number] #### [facility] [address] [place] [address] CO2 [Moles/Vol] 24 mmol/L Normal 21-31 [facility] Comment on above: Performed By: #### 2 [id number] #### [facility] [address] [place] [address] Creatinine [Mass/Vol] 0.9 mg/dL Normal 0.5-1.3 [facility] Comment on above: Performed By: #### 2 [id number] #### [facility] [address] [place] [address] Glucose [Mass/Vol] 305 mg/dL High 55-199 [facility] Comment on above: Performed By: #### 2 [id number] #### [facility] [address] [place] [address] Potassium [Moles/Vol] 3.9 mmol/L Normal 3.5-5.3 [facility] Comment on above: Performed By: #### 2 [id number] #### [facility] [address] [place] [address] Sodium [Moles/Vol] 133 mmol/L Low 135-145 [facility] Comment on above: Performed By: #### 2 [id number] #### [facility] [address] [place] [address] Urea nitrogen [Mass/Vol] 14 mg/dL Normal 5-21 [facility] Comment on above: Performed By: #### 2 [id number] #### [facility] [address] [place] [address] Urea nitrogen/Creatinine [Mass ratio] 16 No Units Normal 10-20 [facility] Comment on above: Performed By: #### 2 [id number] #### [facility] [address] [place] [address] CBC w/ Auto Diffon 4 Basophils/100 WBC (Bld) 0.9 % Normal 0.0-2.0 [facility] Comment on above: Performed By: #### 2 [id number] #### [facility] [address] [place] [address] Basophils/Leukocytes Auto (Bld) [Pure # fraction] 0.1 E9/L Normal 0.0-0.2 [facility] Comment on above: Performed By: #### 2 [id number] #### [facility] [address] [place] [address] Eosinophils (Bld) [#/Vol] 0.3 E9/L Normal 0.0-0.5 [facility] Comment on above: Performed By: #### 2 [id number] #### [facility] [address] [place] [address] Eosinophils/100 WBC (Bld) 2.9 % Normal 0.0-8.0 [facility] Comment on above: Performed By: #### 2 [id number] #### [facility] [address] [place] [address] Erythrocyte distribution width (RBC) [Ratio] 13.9 % Normal 10.9-14.2 [facility] Comment on above: Performed By: #### 2 [id number] #### [facility] [address] [place] [address] Hematocrit (Bld) [Volume fraction] 45.5 % Normal 37.7-49.0 [facility] Comment on above: Performed By: #### 2 [id number] #### [facility] [address] [place] [address] Hemoglobin (Bld) [Mass/Vol] 15.2 g/dL Normal 13.5-17.5 [facility] Comment on above: Performed By: #### 2 [id number] #### [facility] [address] [place] [address] Lymphocytes (Bld) [#/Vol] 1.9 E9/L Normal 1.0-4.0 [facility] Comment on above: Performed By: #### 2 [id number] #### [facility] [address] [place] [address] Lymphocytes/100 WBC (Bld) 20.2 % Normal 14.0-50.0 [facility] Comment on above: Performed By: #### 2 [id number] #### [facility] [address] [place] [address] MCH (RBC) [Entitic mass] 28.3 pg Normal 27.0-34.0 [facility] Comment on above: Performed By: #### 2 [id number] #### [facility] [address] [place] [address] MCHC (RBC) [Mass/Vol] 33.4 g/dL Normal 31.4-36.0 [facility] Comment on above: Performed By: #### 2 [id number] #### [facility] [address] [place] [address] MCV (RBC) [Entitic vol] 84.6 fL Normal 80.0-100.0 [facility] Comment on above: Performed By: #### 2 [id number] #### [facility] [address] [place] [address] Monocytes (Bld) [#/Vol] 0.7 E9/L Normal 0.2-1.0 [facility] Comment on above: Performed By: #### 2 [id number] #### [facility] [address] [place] [address] Neutrophils (Bld) [#/Vol] 6.4 E9/L Normal 2.0-7.5 [facility] Comment on above: Performed By: #### 2 [id number] #### [facility] [address] [place] [address] Neutrophils/100 WBC (Bld) 68.4 % Normal 36.0-75.0 [facility] Comment on above: Performed By: #### 2 [id number] #### [facility] [address] [place] [address] Platelet mean volume (Bld) [Entitic vol] 9.1 fL Normal 6.4-10.8 [facility] Comment on above: Performed By: #### 2 [id number] #### [facility] [address] [place] [address] Platelets (Bld) [#/Vol] 186.0 E9/L Normal 150.0-500.0 [facility] Comment on above: Performed By: #### 2 [id number] #### [facility] [address] [place] [address] RBC (Bld) [#/Vol] 5.4 E12/L Normal 4.3-5.9 [facility] Comment on above: Performed By: #### 2 [id number] #### [facility] [address] [place] [address] WBC corrected for nucl RBC Auto (Bld) [#/Vol] 9.4 E9/L Normal 4.0-11.0 [facility] Comment on above: Performed By: #### 2 [id number] #### [facility] [address] [place] [address] CHEMISTRYOrdered By: SYSTEM SYSTEM on 04-11-2024 Anion [...] 2023 ED Clinical Summary ED Clinical Summary [address] [address] ED Clinical Summary Person Information Name: EARL [place]FFER[place] Age: 29 Years : 1995 Sex: Male [...] 04/11/2024 19:49:31 04/11/2024 19:49:31 04/11/2024 19:49:31 ADDR[facility]: [facility] [id number] PHYS DOC NOTES: MEDICAL INFORMATION: Prescriptions Given: New Medications [facility], [address] [place], [place] [id number], [phone] albuterol (Albuterol (Eqv-ProAir HFA) 90 mcg/inh inhalation [...] Follow up: With: Address: When: RASHID MCKEON [address] [place] [id number] Business (1) In 3 days 04/14/2024 Comments: [...] MEDICAL ADVICE. (more content not included)... Normal [facility] ED Note-Nursingon 04-11-2024 ED Note-Nursing ED Note-Nursing Pt discussed with Dr. Garcias wanting to leave hospital and not stay the night. Pt educated on risks of leaving AMA. Pt continues to state the desire to leave. AMA paperwork signed. Normal [facility] ED Note-Physicianon 04-11-20 ED Note-Physician ED Note-Physician Basic Information Time Seen: Felipe Garcias DO 04/11/2024 16:31 Chief Complaint pt c/o congestion [...] for the next 24 hours. He will pickler helper prednisone from the pharmacy tomorrow. He is given albuterol inhaler as well as a DuoNeb prescription. He is given prednisone prescription. He is instructed that he may return at any time to continue his care and he should. The patient left AGAINST MEDICAL ADVICE. Assessment/Plan Acute asthma exacerbation, (J45.901: Unspecified asthma with (acute) e (more content not included)... Normal [facility] Comment on above: Result Comment: Elec tronically Signed By: Felipe Garcias DO\.br\Date and Time Signed: 04/11/24 19:44 EDT ED Patient Summaryon 024 ED Patient Summary ED Patient Summary [place] [id number] Patient Discharge Instructions Person Information Name: EARL SHAFFER Age: 29 Years Arrival Date: 04/11/2024 15:50:26 Discharge Diagnosis: Acute asthma exacerbation; Acute hypoxemic respiratory failure; Left against medical advice Primary Care Physician: RASHID MCKEON MD Provider Information Primary Provider: Felipe Garcias DO Advanced Neon Technician:None The exam and treatment you received in the Emergency Department were for an urgent problem and are not intended as complete care. It is important that you follow up with a doctor, nurse practitioner, or physician?s lab assistant for ongoing care. If your symptoms become worse or you do not improve as expected and you are unable to reach your usual health care provider, you should return to the Emergency Department. We are available 24 hours a day. EARL SHAFFER has been given the following list of patient education materials, prescriptions and follow-up instructions: Follow-up Instructions: With: Address: When: RASHID MCKEON [address], [place] [id number] Business (1) In 3 days 04/14/2024 Comments: [...] opioids can be used to help relieve ezhvgvny-mz-vwbfgv pain and are often prescribed following a [...] ARE P (more content not included)... Normal [facility] Extra Blueon 04-11-2024 Tube Collected Plasma Yes Invalid Interpretation Code [facility] Comment on above: Performed By: #### 1 [id number] #### [facility] [address] [place] [address] HEMATOLOGYOrdered By: SYSTEM SYSTEM on 04-11-2024 Basophils/100 [...] 04-11-2024 eGFR 120 mL/min/1.73 m2 Normal >=59 [facility] Comment on above: Performed By: #### 1 [id number] #### [facility] [address] [place] [address] BMPon 03-14-2024 Anion gap [Moles/Vol] 10 mmol/L Normal 6-16 [facility] Comment on above: Performed By: #### 2 [id number] #### [facility] [address] [place] [address] Calcium [Mass/Vol] 8.7 mg/dL Low 8.9-11.1 [facility] Comment on above: Performed By: #### 2 [id number] #### [facility] [address] [place] [address] Chloride [Moles/Vol] 98 mmol/L Low 101-111 [facility] Comment on above: Performed By: #### 2 [id number] #### [facility] [address] [place] [address] CO2 [Moles/Vol] 28 mmol/L Normal 21-31 [facility] Comment on above: Performed By: #### 2 [id number] #### [facility] [address] [place] [address] Creatinine [Mass/Vol] 0.9 mg/dL Normal 0.5-1.3 [facility] Comment on above: Performed By: #### 2 [id number] #### [facility] [address] [place] [address] Glucose [Mass/Vol] 338 mg/dL High 55-199 [facility] Comment on above: Performed By: #### 2 [id number] #### [facility] [address] [place] [address] Potassium [Moles/Vol] 4.2 mmol/L Normal 3.5-5.3 [facility] Comment on above: Performed By: #### 2 [id number] #### [facility] [address] [place] [address] Sodium [Moles/Vol] 132 mmol/L Low 135-145 [facility] Comment on above: Performed By: #### 2 [id number] #### [facility] [address] [place] [address] Urea nitrogen [Mass/Vol] 13 mg/dL Normal 5-21 [facility] Comment on above: Performed By: #### 2 [id number] #### [facility] [address] [place] [address] Urea nitrogen/Creatinine [Mass ratio] 14 No Units Normal 10-20 [facility] Comment on above: Performed By: #### 2 [id number] #### [facility] [address] [place] [address] CBC w/ Auto Diffon 4 Basophils/100 WBC (Bld) 0.9 % Normal 0.0-2.0 [facility] Comment on above: Performed By: #### 2 [id number] #### [facility] [address] [place] [address] Basophils/Leukocytes Auto (Bld) [Pure # fraction] 0.1 E9/L Normal 0.0-0.2 [facility] Comment on above: Performed By: #### 2 [id number] #### [facility] [address] [place] [address] Eosinophils (Bld) [#/Vol] 0.2 E9/L Normal 0.0-0.5 [facility] Comment on above: Performed By: #### 2 [id number] #### [facility] [address] [place] [address] Eosinophils/100 WBC (Bld) 2.7 % Normal 0.0-8.0 [facility] Comment on above: Performed By: #### 2 [id number] #### [facility] [address] [place] [address] Erythrocyte distribution width (RBC) [Ratio] 13.9 % Normal 10.9-14.2 [facility] Comment on above: Performed By: #### 2 [id number] #### [facility] [address] [place] [address] Hematocrit (Bld) [Volume fraction] 45.9 % Normal 37.7-49.0 [facility] Comment on above: Performed By: #### 2 [id number] #### [facility] [address] [place] [address] Hemoglobin (Bld) [Mass/Vol] 15.4 g/dL Normal 13.5-17.5 [facility] Comment on above: Performed By: #### 2 [id number] #### [facility] [address] [place] [address] Lymphocytes (Bld) [#/Vol] 2.5 E9/L Normal 1.0-4.0 [facility] Comment on above: Performed By: #### 2 [id number] #### [facility] [address] [place] [address] Lymphocytes/100 WBC (Bld) 27.6 % Normal 14.0-50.0 [facility] Comment on above: Performed By: #### 2 [id number] #### [facility] [address] [place] [address] MCH (RBC) [Entitic mass] 28.7 pg Normal 27.0-34.0 [facility] Comment on above: Performed By: #### 2 [id number] #### [facility] [address] [place] [address] MCHC (RBC) [Mass/Vol] 33.6 g/dL Normal 31.4-36.0 [facility] Comment on above: Performed By: #### 2 [id number] #### [facility] [address] [place] [address] MCV (RBC) [Entitic vol] 85.5 fL Normal 80.0-100.0 [facility] Comment on above: Performed By: #### 2 [id number] #### [facility] [address] [place] [address] Monocytes (Bld) [#/Vol] 0.5 E9/L Normal 0.2-1.0 [facility] Comment on above: Performed By: #### 2 [id number] #### [facility] [address] [place] [address] Neutrophils (Bld) [#/Vol] 5.7 E9/L Normal 2.0-7.5 [facility] Comment on above: Performed By: #### 2 [id number] #### [facility] [address] [place] [address] Neutrophils/100 WBC (Bld) 62.9 % Normal 36.0-75.0 [facility] Comment on above: Performed By: #### 2 [id number] #### [facility] [address] [place] [address] Platelet mean volume (Bld) [Entitic vol] 8.6 fL Normal 6.4-10.8 [facility] are Comment on above: Performed By: #### 2 [id number] #### [facility] [address] [place] [address] Platelets (Bld) [#/Vol] 209.0 E9/L Normal 150.0-500.0 [facility] Comment on above: Performed By: #### 2 [id number] #### [facility] [address] [place] [address] RBC (Bld) [#/Vol] 5.4 E12/L Normal 4.3-5.9 [facility] Comment on above: Performed By: #### 2 [id number] #### [facility] [address] [place] [address] WBC corrected for nucl RBC Auto (Bld) [#/Vol] 9.1 E9/L Normal 4.0-11.0 [facility] Comment on above: Performed By: #### 2 [id number] #### [facility] [address] [place] [address] CHEMISTRYOrdered By: SYSTEM SYSTEM on 03-14-2024 Albumin [...] (Bld) [Mass fraction] 9.9 % High <=5.9% [facility] [employer] [facility] CBC W/ AUTO DIFFon EOSINOPHILS/100 LEUKOCYTES:NFR:PT:BLD :QN:AUTOMATED COUNT 2.7 % 0.0 - 8.0 % [facility] are EOSINOPHILS:NCNC:PT:B LD:QN: 0.2 [facility] BASOPHILS/LEUKOCYTES: NFR.DF:PT:BLD:QN:AUTO MATED COUNT 0.1 [facility] ERYTHROCYTE MEAN CORPUSCULAR HEMOGLOBIN CONCENTRATION:MCNC:PT :RBC:QN 33.6 [facility] ERYTHROCYTE MEAN CORPUSCULAR HEMOGLOBIN:ENTMASS:PT :RBC:QN 28.7 pg 27.0 - 34.0 pg [facility] ERYTHROCYTE MEAN CORPUSCULAR VOLUME:ENTVOL:PT:RBC: QN:AUTOMATED COUNT 85.5 fL 80.0 - 100.0 fL [facility] ERYTHROCYTES:NCNC:PT: BLD:QN:AUTOMATED COUNT 5.4 [facility] HEMOGLOBIN:MCNC:PT:BL D:QN: 15.4 [facility]UKOCYTES 9.1 [facility] MONOCYTES:NCNC:PT:BLD :QN:AUTOMATED COUNT 0.5 [facility] are [facility] NEUTROPHILS:NCNC:PT:B LD:QN:AUTOMATED COUNT 5.7 [facility] PLATELETS:NCNC:PT:BLD :QN:AUTOMATED COUNT 209.0 [facility] are LYMPHOCYTES:NCNC:PT:B LD:QN: 2.5 [facility] Original Ordering Provider: [facility] H[facility]ATOLOGYOrdered By: Cleo Mackey on 03-14-2024 [...] 03-14-2024 Albumin [Mass/Vol] 3.9 g/dL Normal 3.3-5.0 [facility] Comment on above: Performed By: #### 2 [id number] #### [facility] [address] [place] [address] Albumin/Globulin (S) [Mass conc ratio] 1.1 Normal 1.1-2.2 [facility] Comment on above: Performed By: #### 2 [id number] #### [facility] [address] [place] [address] ALP [Catalytic activity/Vol] 61 Int._Unit/L Normal 21-98 [facility] Comment on above: Performed By: #### 2 [id number] #### [facility] [address] [place] [address] ALT No additional P-5'-P [Catalytic activity/Vol] 26 Int._Unit/L Normal 6-46 [facility] Comment on above: Performed By: #### 2 [id number] #### [facility] [address] [place] [address] AST [Catalytic activity/Vol] 20 Int._Unit/L Normal 5-43 [facility] Comment on above: Performed By: #### 2 [id number] #### [facility] [address] [place] [address] Bilirubin [Mass/Vol] 1.1 mg/dL Normal 0.0-1.1 [facility] Comment on above: Performed By: #### 2 [id number] #### [facility] [address] [place] [address] Bilirubin.direct [Mass/Vol] 0.2 mg/dL Normal 0.0-0.4 [facility] Comment on above: Performed By: #### 2 [id number] #### [facility] [address] [place] [address] Bilirubin.indirect [Mass or moles/Vol] 0.9 mg/dL Normal 0.1-0.9 [facility] Comment on above: Performed By: #### 2 [id number] #### [facility] [address] [place] [address] Globulin (S) [Mass/Vol] 3.6 g/dL Normal 1.4-4.0 [facility] Comment on above: Performed By: #### 2 [id number] #### [facility] [address] [place] [address] Protein [Mass/Vol] 7.5 g/dL Normal 6.0-7.8 [facility] Comment on above: Performed By: #### 2 [id number] #### [facility] [address] [place] [address] [id number] 03-14-2024 HbA1c (Bld) [Mass fraction] 9.9 % High <=5.9 [facility] Comment on above: Performed By: #### 7 [id number] #### [facility] [address] [place] [address] Lipid Panelon 03-14-2024 Cholesterol [Mass/Vol] 126 mg/dL Normal 120-200 [facility] Comment on above: Performed By: #### 2 [id number] #### [facility] [address] [place] [address] Cholesterol in HDL [Mass/Vol] 28 mg/dL Invalid Interpretation Code [facility] Comment on above: Result Comment: '>= 60 LOW RISK' '<= 40 HIGH RISK' Performed By: #### 2 [id number] #### [facility] [address] [place] [address] Cholesterol in LDL [Mass/Vol] 97 mg/dL Normal <=129 [facility] Comment on above: Performed By: #### 2 [id number] #### [facility] [address] [place] [address] Cholesterol in VLDL [Mass/Vol] 27 mg/dL Normal 7-40 [facility] Comment on above: Performed By: #### 2 [id number] #### [facility] [address] [place] [address] Triglyceride [Mass/Vol] 136 mg/dL Normal <=149 [facility] Comment on above: Performed By: #### 2 [id number] #### [facility] [address] [place] [address] TSHon 03-14-2024 TSH Qn 0.42 m[IU]/L Normal 0.34-5.60 [facility] Comment on above: Performed By: #### 2 [id number] #### [facility] [address] [place] [address] eGFRon 03-14-2024 eGFR 120 mL/min/1.73 m2 Normal >=59 [facility] Comment on above: Order Comment: Order added by Discern Expert. Performed By: #### 1 [id number] #### [facility] [address] [place] [address] HERPES SIMPLEX VIRUS (HSV) C ULTUREon 10-01-2022 HSV Culture/Type Comment Normal [facility] Comment on above: Result Comment: Nega tive No Herpes simplex virus isolated. Performed By: #### H SVCUL #### [facility] [address] [place] [address] Dr. Gilberto Valle POINT OF CARE GLUCOSEon 09-08 Glucose [Mass/Vol] 276 mg/dL Critically high 74-106 [facility] Comment on above: Performed By: #### P OCGLUC #### [facility] [id number] Gilberto Valle COVID Quick Testingon 2020 Result Negative [employer] Other Vital Signs Date Time Vital Sign Value Performing Clinician Facility 03-11-2025 10:37-0400 Body height 177.8 cm PHYSICIAN NO [facility] 03-11-2025 10:37-0400 Body mass index (BMI) [Ratio] 54.2 kg/m2 PHYSICIAN NO [facility] 03-11-2025 10:37-0400 Body temperature 93.8 [degF] PHYSICIAN NO [facility] 03-11-2025 10:37-0400 Body weight 171.45 kg PHYSICIAN NO [facility] 03-11-2025 10:37-0400 Diastolic blood pressure 78 mm[Hg] PHYSICIAN NO [facility] 03-11-2025 10:37-0400 Heart rate 68 /min PHYSICIAN NO [facility] 03-11-2025 10:37-0400 Respiratory rate 18 /min PHYSICIAN NO [facility] 03-11-2025 10:37-0400 SaO2% (BldA) [Mass fraction] 93 % PHYSICIAN NO [facility] 03-11-2025 10:37-0400 Systolic blood pressure 132 mm[Hg] PHYSICIAN NO [facility] 01-07-2025 11:36-0400 Body height 180.3 cm Rashid Mckeon MD Work Phone: [facility] 01-07-2025 11:36-0400 Body mass index (BMI) [Ratio] 53.98 kg/m2 Rashid Mckeon MD Work Phone: [facility] 01-07-2025 11:36-0400 Body temperature 96.6 [degF] Rashid Mckeon MD Work Phone: [facility] 01-07-2025 11:36-0400 Body weight 175.54 kg Rashid Mckeon MD Work Phone: [facility] 01-07-2025 11:36-0400 Diastolic blood pressure 86 mm[Hg] Rashid Mckeon MD Work Phone: [facility] 01-07-2025 11:36-0400 Heart rate 83 /min Rashid Mckeon MD Work Phone: [facility] 01-07-2025 11:36-0400 Respiratory rate 18 /min Rashid Mckeon MD Work Phone: [facility] 01-07-2025 11:36-0400 SaO2% (BldA) [Mass fraction] 90 % Rashid Mckeon MD Work Phone: [facility] 01-07-2025 11:36-0400 Systolic blood pressure 142 mm[Hg] Rashid Mckeon MD Work Phone: [facility] 11-27-2024 07:17-0400 Body height 180.3 cm Rashid Mckeon MD Work Phone: [facility] 11-27-2024 07:17-0400 Body mass index (BMI) [Ratio] 54.67 kg/m2 Rashid Mckeon MD Work Phone: [facility] 11-27-2024 07:17-0400 Body temperature 97.5 [degF] Rashid Mckeon MD Work Phone: [facility] 11-27-2024 07:17-0400 Body weight 177.81 kg Rashid Mckeon MD Work Phone: [facility] 11-27-2024 07:17-0400 Diastolic blood pressure 74 mm[Hg] Rashid Mckeon MD Work Phone: [facility] 11-27-2024 07:17-0400 Heart rate 58 /min Rashid Mckeon MD Work Phone: [facility] 11-27-2024 07:17-0400 Respiratory rate 18 /min Rashid Mckeon MD Work Phone: [facility] 11-27-2024 07:17-0400 SaO2% (BldA) [Mass fraction] 89 % Rashid Mckeon MD Work Phone: [facility] 11-27-2024 07:17-0400 Systolic blood pressure 130 mm[Hg] Rashid Mckeon MD Work Phone: [facility] 08-28-2024 07:31-0500 Body height 180.3 cm Rashid Mckeon MD Work Phone: [facility] 08-28-2024 07:31-0500 Body mass index (BMI) [Ratio] 53.98 kg/m2 Rashid Mckeon MD Work Phone: [facility] 08-28-2024 07:31-0500 Body temperature 99.5 [degF] Rashid Mckeon MD Work Phone: [facility] 08-28-2024 07:31-0500 Body weight 175.54 kg Rashid Mckeon MD Work Phone: [facility] 08-28-2024 07:31-0500 Diastolic blood pressure 70 mm[Hg] Rashid Mckeon MD Work Phone: [facility] 08-28-2024 07:31-0500 Heart rate 85 /min Rashid Mckeon MD Work Phone: [facility] 08-28-2024 07:31-0500 Respiratory rate 22 /min Rashid Mckeon MD Work Phone: [facility] 08-28-2024 07:31-0500 SaO2% (BldA) [Mass fraction] 93 % Rashid Mckeon MD Work Phone: [facility] 08-28-2024 07:31-0500 Systolic blood pressure 166 mm[Hg] Rashid Mckeon MD Work Phone: [facility] 06-26-2024 07:38-0500 Body height 180.3 cm Rashid Mckeon MD Work Phone: [facility] 06-26-2024 07:38-0500 Body mass index (BMI) [Ratio] 53.98 kg/m2 Rashid Mckeon MD Work Phone: [facility] 06-26-2024 07:38-0500 Body temperature 96.21 [degF] Rashid Mckeon MD Work Phone: [facility] 06-26-2024 07:38-0500 Body weight 175.54 kg Rashid Mckeon MD Work Phone: [facility] 06-26-2024 07:38-0500 Diastolic blood pressure 64 mm[Hg] Rashid Mckeon MD Work Phone: [facility] 06-26-2024 07:38-0500 Heart rate 100 /min Rashid Mckeon MD Work Phone: [facility] 06-26-2024 07:38-0500 Respiratory rate 18 /min Rashid Mckeon MD Work Phone: [facility] 06-26-2024 07:38-0500 SaO2% (BldA) [Mass fraction] 95 % Rashid Mckeon MD Work Phone: [facility] 06-26-2024 07:38-0500 Systolic blood pressure 166 mm[Hg] Rashid Mckeon MD Work Phone: [facility] 04-24-2024 07:30-0400 Body height 180.3 cm Rashid Mckeon MD Work Phone: [facility] 04-24-2024 07:30-0400 Body mass index (BMI) [Ratio] 54.53 kg/m2 Rashid Mckeon MD Work Phone: [facility] 04-24-2024 07:30-0400 Body temperature 95.11 [degF] Rashid Mckeon MD Work Phone: [facility] 04-24-2024 07:30-0400 Body weight 177.36 kg Rashid Mckeon MD Work Phone: [facility] 04-24-2024 07:30-0400 Diastolic blood pressure 70 mm[Hg] Rashid Mckeon MD Work Phone: [facility] 04-24-2024 07:30-0400 Heart rate 93 /min Rashid Mckeon MD Work Phone: [facility] 04-24-2024 07:30-0400 Respiratory rate 18 /min Rashid Mckeon MD Work Phone: [facility] 04-24-2024 07:30-0400 SaO2% (BldA) [Mass fraction] 95 % Rashid Mckeon MD Work Phone: [facility] 04-24-2024 07:30-0400 Systolic blood pressure 130 mm[Hg] Rashid Mckeon MD Work Phone: [facility] 04-11-2024 19:40-0400 Heart rate 111 /min Arnulfo Woodsoncker [facility] 04-11-2024 19:00-0400 Diastolic blood pressure 81 mm[Hg] Arnulfo Gene [facility] 04-11-2024 19:00-0400 SaO2% (BldA) [Mass fraction] 94 % Arnulfo Gene [facility] 04-11-2024 19:00-0400 Systolic blood pressure 132 mm[Hg] Arnulfo Gene [facility] 04-11-2024 18:00-0400 Diastolic blood pressure 85 mm[Hg] Arnulfo Gene [facility] 04-11-2024 18:00-0400 Heart rate 117 /min Arnulfo Woodsoncker [facility] 04-11-2024 18:00-0400 Mean blood pressure 95 mm[Hg] Arnulfo Woodsoncker [facility] 04-11-2024 18:00-0400 Systolic blood pressure 115 mm[Hg] Arnulfo Woodsoncker [facility] 04-11-2024 17:15-0400 Heart rate 126 /min Arnulfo Gene [facility] 04-11-2024 17:15-0400 Respiratory rate 20 /min Arnulfo Woodsoncker [facility] 04-11-2024 17:15-0400 SaO2% (BldA) [Mass fraction] 93 % Arnulfo Mills [facility] 04-11-2024 16:41-0400 Diastolic blood pressure 91 mm[Hg] Arnulfo Mills [facility] 04-11-2024 16:41-0400 Mean blood pressure 110 mm[Hg] Arnulfo Mills [facility] 04-11-2024 16:41-0400 Respiratory rate 19 /min Arnulfo Mills [facility] 04-11-2024 16:41-0400 Systolic blood pressure 148 mm[Hg] Arnulfo Mills [facility] 04-11-2024 16:23-0400 Body temperature 98.96 [degF] Arnulfo Mills [facility] 04-11-2024 16:23-0400 Heart rate 114 /min Arnulfo Mills [facility] 03-13-2024 07:17-0400 Body height 177.8 cm Rashid Mckeon MD Work Phone: [facility] 03-13-2024 07:17-0400 Body mass index (BMI) [Ratio] 55.39 kg/m2 Rashid Mckeon MD Work Phone: [facility] 03-13-2024 07:17-0400 Body temperature 96.6 [degF] Rashid Mckeon MD Work Phone: [facility] 03-13-2024 07:17-0400 Body weight 175.09 kg Rashid Mckeon MD Work Phone: [facility] 03-13-2024 07:17-0400 Diastolic blood pressure 68 mm[Hg] Rashid Mckeon MD Work Phone: [facility] 03-13-2024 07:17-0400 Heart rate 87 /min Rashid Mckeon MD Work Phone: [facility] 03-13-2024 07:17-0400 Respiratory rate 18 /min Rashid Mckeon MD Work Phone: [facility] 03-13-2024 07:17-0400 SaO2% (BldA) [Mass fraction] 93 % Rashid Mckeon MD Work Phone: [facility] 03-13-2024 07:17-0400 Systolic blood pressure 130 mm[Hg] Rashid Mckeon MD Work Phone: [facility] 02-01-2022 11:49-0400 Body temperature 96.98 [degF] Lanre LAWRENCE [facility] [place] 02-01-2022 11:49-0400 Diastolic blood pressure 82 mm[Hg] Lanre LAWRENCE [facility] [place] 02-01-2022 11:49-0400 Heart rate 85 /min Lanre LAWRENCE [facility] [place] 02-01-2022 11:49-0400 SaO2% (BldA) [Mass fraction] 93 % Lanre LAWRENCE [facility] [place] 02-01-2022 11:49-0400 Systolic blood pressure 128 mm[Hg] Lanre LAWRENCE [facility] [place] Encounters Encounter Date Encounter Type Care Provider Facility Start: 03-11-2025 End: 03-11-2025 ambulatory PHYSICIAN [facility] Work Phone: Start: 03-11-2025 End: 03-11-2025 Patient encounter procedure Rashid Mckeon MD [facility] [place] Work Phone: Start: 02-06-2025 End: 02-06-2025 Refill Rashid Mckeon MD Work Phone: [facility] Comment on above: Class 3 severe obesi ty due to excess calories with serious comorbidity and body mass index (BMI) of 50.0 to 59.9 in adult [place] Start: 01-07-2025 End: 01-07-2025 Bamboo flowsheet Rashid Mckeon MD Work Phone: [facility] Start: 01-07-2025 End: 01-07-2025 Bamboo flowsheet Rashid Mckeon MD Work Phone: [facility] Start: 01-07-2025 End: 01-07-2025 Office outpatient visit 25 minutes Rashid Mckeon MD Work Phone: [facility] Comment on above: Type 2 diabetes terri itus with hyperglycemia, without long-term current use of insulin ([facility]) (Primary Dx); Major depressive disorder, recurrent episode, mild ; JAYJAY (generalized anxiety disorder) ; Mild intermittent asthma without complication ([facility]); Class 3 severe obesity due to excess calories with serious comorbidity and body mass index (BMI) of 50.0 to 59.9 in adult ([facility] Start: 01-07-2025 End: 01-07-2025 ambulatory RASHID MCKEON Not Available Start: 12-30-2024 End: 12-31-2024 Refill Rashid Mckeon MD Work Phone: [facility] Comment on above: Class 3 severe obesi ty due to excess calories with serious comorbidity and body mass index (BMI) of 50.0 to 59.9 in adult ([facility] Start: 11-27-2024 End: 11-27-2024 Bamboo flowsheet Rashid Mckeon MD Work Phone: [facility] Start: 11-27-2024 End: 11-27-2024 Bamboo flowsheet Rashid Mckeon MD Work Phone: [facility] Start: 11-27-2024 End: 11-27-2024 Clinisync Result Encounter Rashid Mckeon MD Work Phone: [facility] External Department Unsolicited Start: 11-27-2024 End: 11-27-2024 Office outpatient visit 25 minutes Rashid Mckeon MD Work Phone: [facility] Comment on above: Type 2 diabetes terri itus with hyperglycemia, without long-term current use of insulin (CMS/HCC) (Primary Dx); Major depressive disorder, recurrent episode, mild (HCC) (CMS/HCC); JAYJAY (generalized anxiety disorder) (CMS/HCC); Mild intermittent asthma without complication (CMS/HCC); Class 3 severe obesity due to excess calories with serious comorbidity and body mass index (BMI) of 50.0 to 59.9 in adult Start: 11-27-2024 End: 11-27-2024 Orders Only Rashid Mckeon MD Work Phone: [facility] Comment on above: Class 3 severe obesi ty due to excess calories with serious comorbidity and body mass index (BMI) of 50.0 to 59.9 in adult Start: 09-10-2024 End: 09-10-2024 Telephone encounter Rashid Mckeon MD Work Phone: [facility] Comment on above: Med Refill Start: 08-28-2024 End: 08-28-2024 Bamboo flowsheet Rashid Mckeon MD Work Phone: [facility] Start: 08-28-2024 End: 08-28-2024 Bamboo flowsheet Rashid Mckeon MD Work Phone: [facility] Start: 08-28-2024 End: 08-28-2024 Office outpatient visit 25 minutes Rashid Mckeon MD Work Phone: [facility] Comment on above: Type 2 diabetes terri itus with hyperglycemia, without long-term current use of insulin (CMS/HCC) (Primary Dx); Major depressive disorder, recurrent episode, mild (HCC) (CMS/HCC); JAYJAY (generalized anxiety disorder) (CMS/HCC); Mild intermittent asthma without complication (CMS/HCC); Class 3 severe obesity due to excess calories with serious comorbidity and body mass index (BMI) of 50.0 to 59.9 in adult ([facility]) Start: 08-28-2024 End: 08-28-2024 ambulatory RASHID MCKEON Not Available Start: 06-27-2024 End: 06-27-2024 Orders Only Rashid Mckeon MD Work Phone: [facility] Comment on above: Type 2 diabetes terri itus with hyperglycemia, without long-term current use of insulin (CMS/[facility]) Start: 06-26-2024 End: 06-26-2024 ambulatory RASHID MCKEON Facility:[facility] Start: 06-26-2024 End: 06-26-2024 Patient encounter procedure RASHID MKCEON [facility] Start: 06-26-2024 End: 06-26-2024 Bamboo flowsheet Rashid Mckeon MD Work Phone: [facility] Start: 06-26-2024 End: 06-26-2024 Bamboo flowsheet Rashid Mckeon MD Work Phone: [facility] Start: 06-26-2024 End: 06-26-2024 Clinisync Result Encounter Rashid Mckeon MD Work Phone: [facility] External Department Unsolicited Start: 06-26-2024 End: 06-26-2024 Office outpatient visit 25 minutes Rashid Mckeon MD Work Phone: [facility] Comment on above: Type 2 diabetes terri itus with hyperglycemia, without long-term current use of insulin ([facility]) (Primary Dx); Major depressive disorder, recurrent episode, mild (HCC) ([facility]); JAYJAY (generalized anxiety disorder) ([facility]); Mild intermittent asthma without complication ([facility]); Class 3 severe obesity due to excess calories with serious comorbidity and body mass index (BMI) of 50.0 to 59.9 in adult (CMS/HCC) Start: 06-26-2024 End: 06-26-2024 ambulatory RASHID MCKEON Not Available Start: 04-24-2024 End: 04-24-2024 Bamboo flowsheet Rashid Mckeon MD Work Phone: [facility] Start: 04-24-2024 End: 04-24-2024 Bamboo flowsheet Rashid Mckeon MD Work Phone: [facility] Start: 04-24-2024 End: 04-24-2024 Office outpatient visit 25 minutes Rashid Mckeon MD Work Phone: [facility] Comment on above: Type 2 diabetes terri itus with hyperglycemia, without long-term current use of insulin (CMS/HCC) (Primary Dx); Major depressive disorder, recurrent episode, mild (HCC) (CMS/HCC); JAYJAY (generalized anxiety disorder) (CMS/HCC) Start: 04-24-2024 End: 04-24-2024 ambulatory RASHID MCKEON Not Available Start: 04-11-2024 End: 04-11-2024 Emergency department patient visit Arnulfo Mills Facility:[facility] Start: 04-11-2024 Emergency department patient visit Felipe Garcias Facility:[facility] Start: 04-11-2024 End: 04-11-2024 Evaluation and management of inpatient Arnulfo Mills [facility] Start: 03-14-2024 End: 03-14-2024 Clinisync Result Encounter Rashid Mckeon MD Work Phone: [facility] Unsolicited Start: 03-14-2024 End: 03-14-2024 Clinisync Result Encounter Rashid Mckeon MD Work Phone: [facility] Unsolicited Start: 03-14-2024 End: 03-14-2024 ambulatory RASHID MCKEON Facility:[facility] Comment on above: Type 2 diabetes terri itus with hyperglycemia, without long-term current use of insulin (CMS/HCC) (Primary Dx) Start: 03-14-2024 End: 03-14-2024 Patient encounter procedure RASHID MCKEON [facility] Start: 03-13-2024 End: 03-13-2024 Bamboo flowsheet Rashid Mckeon MD Work Phone: [facility] Start: 03-13-2024 End: 03-13-2024 Bamboo flowsheet Rashid Mckeon MD Work Phone: [facility] Start: 03-13-2024 End: 03-13-2024 ambulatory RASHID MCKEON Not Available Start: 03-13-2024 End: 03-13-2024 Patient encounter procedure Rashid Mckeon MD Work Phone: [facility] Start: 03-13-2024 End: 03-13-2024 Periodic preventive med est patient 18-39 yrs Rashid Mckeon MD Work Phone: [facility] Comment on above: Annual physical exam (Primary Dx); Major depressive disorder, recurrent episode, mild (HCC) (CMS/HCC); JAYJAY (generalized anxiety disorder) (CMS/HCC); Morbid obesity due to excess calories (CMS/HCC) Start: 11-24-2022 ambulatory NONE LISTED REQUEST Facility:[facility] Start: 09-28-2022 End: 09-28-[address] LAM XIAO Facility:[facility] Start: 02-01-2022 End: 02-01-2022 Patient encounter procedure Lanre LAWRENCE [facility] [place] Start: 06-24-2021 End: 06-24-2021 ambulatory Madeline Muñoz Other [employer] Other Start: 06-24-2021 Office outpatient vi sit 5 minutes Madeline Muñoz [facility] Start: 07-06-2018 End: 07-06-2018 Emergency department patient visit [facility] Procedures Date Procedure Procedure Detail Performing Clinician Start: 11-27-2024 MLR HEMOGLOBIN A1C Rashid Mckeon MD Work Phone: Start: 06-26-2024 [facility] HGBA1C Rashid rodrigues MD Work Phone: Start: 03-14-2024 SCANNED LABS Rashid rodrigues MD Work Phone: Start: 03-14-2024 [facility] CBC W/ AUTO DIFF M isaias Mckeon MD Work Phone: Structure of wisdom tooth (body structure) Lanrebob LAWRENCE Tonsillectomy Lanre LAWRENCE Plan of Treatment Date Care Activity Detail Author Start: 11-27-2025 Urine screening for protein Diabetes: Urine Protein Screening [facility] Start: 05-30-2025 Hemoglobin A1c measurement Diabetes: Hemoglobin A1C [facility] Start: 04-11-2025 Urine screening for protein Diabetes: Urine Protein Screening [facility] Start: 03-11-2025 End: 03-11-2025 Patient encounter procedure [facility] Start: 03-10-2025 Influenza vaccination [facility] Start: 03-05-2025 End: 03-05-2025 Patient encounter procedure 03/05/2025 7:00 AM EDT Office Visit [facility] [address] [place] [address] Rashid Mckeon MD [address] [place] [phone] [facility] Start: 01-07-2025 End: 01-07-2025 Patient encounter procedure [facility] Comment on above: Arrived Start: 12-25-2024 Hemoglobin A1c measurement Diabetes: Hemoglobin A1C [facility] Start: 11-27-2024 End: 11-27-2025 Hemoglobin A1c/Hemoglobin.total in Blood Hemoglobin A1c Lab Routine Type 2 diabetes mellitus with hyperglycemia, without long-term current use of insulin ([facility]) Expected: 11/27/2024 (Approximate), Expires: 11/27/2025 [facility] Comment on above: Expected: 11/27/2024 (Approximate), Expires: 11/27/2025 Start: 11-27-2024 End: 11-27-2025 Microalbumin/Creatinine panel in random Urine Microalbumin / creatinine, urine ratio Lab Routine Type 2 diabetes mellitus with hyperglycemia, without long-term current use of insulin ([facility]) Expected: 11/27/2024 (Approximate), Expires: 11/27/2025 [facility] Work Phone: Comment on above: Expected: 11/27/2024 (Approximate), Expires: 11/27/2025 Start: 11-27-2024 End: 11-27-2024 Patient encounter procedure 11/27/2024 7:00 AM EDT Office Visit [facility] [address] [place] [address] Rashid Mckeon MD [address] [place] [phone] [facility] Start: 09-24-2024 Hemoglobin A1c measurement Diabetes: Hemoglobin A1C [facility] Start: 08-28-2024 End: 08-28-2024 Patient encounter procedure [facility] Comment on above: Arrived Start: 06-26-2024 End: 06-26-2025 Hemoglobin A1c/Hemoglobin.total in Blood Hemoglobin A1c Lab Routine Type 2 diabetes mellitus with hyperglycemia, without long-term current use of insulin ([facility]) Expected: 06/26/2024 (Approximate), Expires: 06/26/2025 [facility] Work Phone: Comment on above: Expected: 06/26/2024 (Approximate), Expires: 06/26/2025 Start: 06-26-2024 End: 06-26-2024 Patient encounter procedure [facility] Comment on above: Arrived Start: 04-24-2024 End: 04-24-2024 Patient encounter procedure [facility] Comment on above: Arrived Start: 03-13-2024 End: 03-13-2025 Basic metabolic 1998 panel - Serum or Plasma Basic metabolic panel Lab Routine Annual physical exam Expected: 03/13/2024 (Approximate), Expires: 03/13/2025 [facility] Comment on above: Expected: 03/13/2024 (Approximate), Expires: 03/13/2025 Start: 03-13-2024 End: 03-13-2025 CBC W Auto Differential panel - Blood CBC and differential Lab Routine Annual physical exam Expected: 03/13/2024 (Approximate), Expires: 03/13/2025 [facility] Comment on above: Expected: 03/13/2024 (Approximate), Expires: 03/13/2025 Start: 03-13-2024 End: 03-13-2025 Hemoglobin A1c/Hemoglobin.total in Blood Hemoglobin A1c Lab Routine Annual physical exam Expected: 03/13/2024 (Approximate), Expires: 03/13/2025 [facility] Work Phone: Comment on above: Expected: 03/13/2024 (Approximate), Expires: 03/13/2025 Start: 03-13-2024 End: 03-13-2025 Hepatic function 2000 panel - Serum or Plasma Hepatic function panel Lab Routine Annual physical exam Expected: 03/13/2024 (Approximate), Expires: 03/13/2025 [facility] Comment on above: Expected: 03/13/2024 (Approximate), Expires: 03/13/2025 Start: 03-13-2024 End: 03-13-2025 Lipid 1996 panel - Serum or Plasma Lipid panel Lab Routine Annual physical exam Expected: 03/13/2024 (Approximate), Expires: 03/13/2025 [facility] Comment on above: Expected: 03/13/2024 (Approximate), Expires: 03/13/2025 Start: 03-13-2024 End: 03-13-2025 Thyrotropin [Units/volume] in Serum or Plasma TSH Lab Routine Annual physical exam Expected: 03/13/2024 (Approximate), Expires: 03/13/2025 [facility] Comment on above: Expected: 03/13/2024 (Approximate), Expires: 03/13/2025 Start: 03-10-2024 Influenza vaccination Influenza Vacc ine (#1) [facility] Start: 02-06-2016 Urine screening for protein Diabetes: Urine Protein Screening [facility] Start: 2007 Glaucoma screening Diabetes: R etinopathy Screening [facility] Start: 1997 Hemoglobin A1c measurement Diabetes: Hemoglobin A1C [facility] Immunizations Immunization Date Immunization Notes Care Provider Perla damon 01-10-2014 tetanus toxoid, reduced diphtheria toxoid, and acellular pertussis vaccine, adsorbed Lanre LAWRENCE [facility] NEGATED: Highlighted row has not occurred!06-19-2019 influenza virus vaccine, live, attenuated, for intranasal use Lanre LAWRENCE [facility] Payers Date Payer Category Payer Private Health Insurance [id number] 2023 Private Health Insurance [id number] 2017 Unknown [employer] [facility] [employer] [id number] 2017-Present [address] [place] [address] [id number] 2014 Unknown [id number] 1997 Unknown [id number]. 174 1997 Unknown [id number] [id number]. 593 1997 Unknown [id number] [id number]. 593 1997 Unknown [id number] [id number]. 727 1997 Unknown [id number] 2.16.840.1.239755.3.579.2. 727 1997 Unknown [id number] [id number]. 727 1997 Unknown [id number] 2.16.840.1.220020.3.579.2. 727 1997 Unknown [id number] [id number]. 727 1997 Unknown [id number] 2.16.840.1.550392.3.579.2. 9 1997 Unknown [id number] 2.16.840.1.761968.3.579.2. 9 1997 Unknown [id number] [id number]. 1258 1997 Unknown [id number] 2.16.840.1.746109.3.579.2. 9 1997 Unknown [id number] [id number]. 9 1997 Unknown [id number] [id number]. 1259 1959 Unknown [id number] Social History Date Type Detail Facility Unknown if ever smoked [employer] [facility] Other Start: 03-12-2024 End: 01-07-2025 Sex Assigned At [employer] Other Start: 02-01-2022 End: 03-13-2024 Tobacco smoking status Ex-smoker (finding) [facility] Tobacco smoking status Smokeless tobacco user within last 30 days [facility] [place] History of tobacco use Current smoker [facility] History of tobacco use Cigarette Smoker [facility] Start: 03-13-2024 Tobacco use and exposure Smokeless tobacco non-user [facility] Start: 03-12-2024 End: 01-07-2025 History of Social function [facility] Do you belong to any clubs or organizations such as scientology groups, unions, fraternal or athletic groups, or [...] on file [facility] Tobacco smoking stat [facility] Tobacco smoking consumption unknown [facility] How often do you nee d to have someone help you when you read instructions, pamphlets, or other written material from your doctor or pharmacy [SILS] Rarely [facility] Sex Male (finding) [facility] Start: 1997 Sex Assigned At Male [facility] Medical Equipment Procedure Code Equipment Code Equipment Origin al Text Equipment Identifier Dates 1 each by In Vit ro route Daily [id number] Start: 03-14-2024 1 each Daily [id number] Start: 03-14-2024 Functional Status Date Assessment Result Facility 04-11-2024 Functional Status N/A Leo Cornelia [facility] 02-01-2022 Functional Status N/A [facility] [place] Clinical Notes 06-24-2021 to 01-07-2025 Rashid Mckeon MD - 01/07/2025 12:01 PM Talisha Mckeon MD - 01/07/2025 12:00 PM Talisha Mckeon MD - 01/07/2025 12:00 PM Talisha Mckeon MD - 01/07/2025 12:00 PM EDT Note Date & Type Note Facility 01-07-2025 History of Presen t illness Narrative Associated Problem(s): Class 3 severe obesity due to excess calories with serious comorbidity and body mass index (BMI) of 50.0 to 59.9 in adult ([facility]) Patient doing well with adipex and lost 5 pounds in first month. Tolerating well with only mild dry mouth. Continue with dietary changes and less calories. Need to limit snacking and smaller portions. Continue healthier choices. Need regular aerobic exercise 30 minutes at a time 5-6 days a week. Refill for another month. OARRS reviewed. Continue meds as prescribed. If develop new or worsening symptoms contact office. Associated Problem(s): Mild intermittent asthma without complication (HCC) SOB stable and use albuterol PRN. Associated Problem(s): Type 2 diabetes mellitus with hyperglycemia (HCC) Reports BS improved and recent A1C 7.6. Stick to ADA diet and limit carbs. Associated Problem(s): Major depressive disorder, recurrent episode, mild Symptoms recently worse and increase effexor. Warned will take 2-3 weeks to notice improvement in mood. Associated Problem(s): JAYJAY (generalized anxiety disorder) Symptoms recently worse and increase effexor. Warned will take 2-3 weeks to notice improvement in mood. Images from the original note were not included. Subjective Patient ID: Earl Shaffer is a 29 y.o. male who presents for Follow-up (1m). Follow up DM, depression, anxiety, asthma, and weight. Not checking BS often but recent A1C 7.5. Tries to eat well and stick to ADA diet but still occasional splurges. Denies signs of elevated BS such as polyuria, polyphagia or polydipsia. Mood recently worse. Increased symptoms and down, sad and no motivation. Not interacting well with others. Anxiety worse. Nervous and worry all the time. Stressed out and overwhelmed. Thought racing and hard to clear mind. Asthma stable. Mild SOB with exertion. Occasional cough but no sputum. Using albuterol PRN and helps when needed. Started adipex and weight down 5 pounds. Tolerating medication without side effects except mild dry mouth. Not as hungry with medication. Smaller portions and not snacking. Increased fruits and vegetables. Tries to limit total daily calories. Increased activity and walking almost daily. Review of Systems Constitutional: Negative for [...] This Visit Mild intermittent asthma without complication (HCC) SOB stable and use albuterol PRN. Class 3 severe obesity due to excess calories with serious comorbidity and body mass index (BMI) of 50.0 to 59.9 in adult ([facility]) Patient doing well with adipex and lost 5 pounds in first month. Tolerating well with only mild dry mouth. Continue with dietary changes and less calories. Need to limit snacking and smaller portions. Continue healthier choices. Need regular aerobic exercise 30 minutes at a time 5-6 days a week. Refill for another month. OARRS reviewed. Continue meds as prescribed. If develop new or worsening symptoms contact office. Major depressive disorder, recurrent episode, mild Symptoms recently worse and increase effexor. Warned will take 2-3 weeks to notice improvement in mood. Relevant Medications venlafaxine XR (Effexor XR) 150 MG 24 hr capsule JAYJAY (generalized anxiety disorder) Symptoms recently worse and increase effexor. Warned will take 2-3 weeks to notice improvement in mood. Type 2 diabetes mellitus with hyperglycemia (HCC) - Primary Reports BS improved and recent A1C 7.6. Stick to ADA diet and limit carbs. documented in this encounter [facility] 11-27-2024 History of Presen t illness Narrative [...] ratio Hemoglobin A1c documented in this encounter [facility] 09-10-2024 Telephone encounter Note Chart note from last visit states stop prozac and start effexor, but effexor never sent to pharmacy. clm [facility] 09-10-2024 Miscellaneous Notes Chart note from last visit states stop prozac and start effexor, but effexor never sent to pharmacy. clm documented in this encounter [facility] 08-28-2024 History of Presen t illness Narrative Associated Problem(s): Type 2 diabetes mellitus with hyperglycemia (CMS/HCC) Reports BS improved and continue to monitor. Stick to ADA diet and limit carbs. Associated Problem(s): Mild intermittent asthma without complication (CMS/HCC) Increased SOB and needs inhaled steroid. Contact insurance to see what medication is preferred. Use albuterol PRN. Associated Problem(s): Major depressive disorder, recurrent episode, mild (HCC) (CMS/HCC) Symptoms slightly improved but worse and stop prozac. Try effexor. Warned will take 2-3 weeks to notice improvement in mood. Associated Problem(s): JAYJAY (generalized anxiety disorder) ([facility] Symptoms slightly improved but worse and stop prozac. Try effexor. Warned will take 2-3 weeks to notice improvement in mood. Associated Problem(s): Class 3 severe obesity due to excess calories with serious comorbidity and body mass index (BMI) of 50.0 to 59.9 in adult ([facility] Weight unchanged. Images from the original note [...] asthma without complication (CMS/HCC) Increased SOB and needs inhaled steroid. Contact insurance to see what medication is preferred. Use albuterol PRN. Class 3 severe obesity due to excess calories with serious comorbidity and body mass index (BMI) of 50.0 to 59.9 in adult (CMS/HCC) Weight unchanged. Major depressive disorder, recurrent episode, mild (HCC) (CMS/HCC) Symptoms slightly improved but worse and stop prozac. Try effexor. Warned will take 2-3 weeks to notice improvement in mood. JAYJAY (generalized anxiety disorder) (CMS/HCC) Symptoms slightly improved but worse and stop prozac. Try effexor. Warned will take 2-3 weeks to notice improvement in mood. Type 2 diabetes mellitus with hyperglycemia (CMS/HCC) - Primary Reports BS improved and continue to monitor. Stick to ADA diet and limit carbs. documented in this encounter [facility] 06-26-2024 History of Presen t illness Narrative Associated Problem(s): Type 2 diabetes mellitus with hyperglycemia (CMS/HCC) Reports BS improved and due for A1C. Stick to ADA diet and limit carbs. Associated Problem(s): Mild intermittent asthma without complication (CMS/HCC) Increased SOB and add inhaled steroid. Use albuterol PRN. Associated Problem(s): Major depressive disorder, recurrent episode, mild (HCC) ([facility]) Symptoms slightly improved but still present and increase prozac. Warned will take 2-3 weeks to notice improvement in mood. Associated Problem(s): JAYJAY (generalized anxiety disorder) ([facility]) Symptoms slightly improved but still present and increase prozac. Warned will take 2-3 weeks to notice improvement in mood. Associated Problem(s): Class 3 severe obesity due to excess calories with serious comorbidity and body mass index (BMI) of 50.0 to 59.9 in adult ([facility]) Weight down 4 pounds. Images from the [...] Orders Hemoglobin A1c documented in this encounter [facility] 04-24-2024 History of Presen t illness Narrative [...] and limit carbs. documented in this encounter [facility] 04-11-2024 Hospital Discharg e instructions Patient Education [...] breathing (shortness of breath). 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 Chest tightness. Tiredness (fatigue) with minimal [...] condition. Follow these instructions at home: Take osph-vst-yfxpwou and prescription medicines only as told by [...] provider. Document Revised: 04/13/2022 Document Reviewed: 04/04/2022 [employer] Patient Education 2023 [employer]. 04/11/2024 19:04:32 Hypoxia Hypoxia Hypoxia is a [...] hypoxia. Follow these instructions at home: Take mtwx-hkc-foteqsr and prescription medicines only as told by [...] provider. Document Revised: 01/25/2022 Document Reviewed: 01/25/2022 [employer] Patient Education 2023 [employer] 04/11/2024 19:04:32 Acute Respiratory Failure, Adult Acute [...] Follow these instructions at home: Medicines Take hljg-kfh-gutfuvr and prescription medicines only as told by [...] provider. Document Revised: 09/02/2022 Document Reviewed: 09/02/2022 [employer] Patient Education 2023 [employer]. Follow Up Care 04/11/2024 15:52:04 With:RASHID MCKEON Address: [address] [place] [address] Business (1) When:04/14/2024 19:03:07 Comments:Call the [...] every 4 hours. Take steroids as prescribed. [facility] 04-11-2024 Note ED Patient Education Note [...] (shortness of breath). ? 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 ? Chest tightness. ? Tiredness (fatigue) [...] Follow these instructions at home: ? Take zboa-qow-yeqdauo and prescription medicines only as told by [...] a fast heartb (more content not included)... [facility] 04-11-2024 Evaluation + Plan note Extrac [...] Cough and Congestion, 6.7 gm, Refill(s) 0, [facility], 180.3, cm, 04/11/24 16:28:00 EDT, [...] day(s), # 15 tab(s), Refills(s) 0, Pharmacy: [facility] 1985, 180.3, cm, 04/11/24 16:28:00 EDT, Height/Length Dosing, 173, kg, 04/11/24 16:28:00 EDT, Weight Dosing Basic Metabolic Panel CBC w/ Auto Diff eGFR Extra Blue Tube Extra SST Tube XR Chest Single View [facility] 09-04-2024 History of Present illness Narrative* [...] (Atarax) 25 MG tablet [id number] Hospital Discharge instructions Patient Education 02/01/2022 12:47:02 [...] 04/05/2006 Document Revised: 08/22/2019 Document Reviewed: 07/19/2017 [employer] Patient Education 2020 [employer] Follow Up Care 08/04/2021 13:56:06 With:Lanre MEADE Address: [address] [place] [phone] When:Within 6 Month(s) [facility] 12-16-2021 Evaluation note* Encounter Date Diagnosis Assessment [...] Patient care instructions given in writting by [facility] Care At Home document. [employer] Consult[employer] Other Evaluation + Plan note Future Appointments Appointment Date:08/05/2022 11:00:00 AM Scheduled Provider:Lanre [facility]ADE [facility]: Open [facility] Evaluation note* Diagnosis Annual physical exam- Primary Routine general medical examination at a health care facility Major depressive disorder, recurrent episode, mild (HCC) (CMS/HCC) Major depressive disorder, recurrent episode, mild JAYJAY (generalized anxiety disorder) ([facility]/HCC) Generalized anxiety disorder Morbid obesity due to excess calories ([facility]/HCC) Type 2 diabetes mellitus with hyperglycemia, without long-term current use of insulin (CMS/HCC)- Primary Major depressive disorder, recurrent episode, mild (HCC) (CMS/HCC) Major depressive disorder, recurrent episode, mild JAYJAY (generalized anxiety disorder) ([facility]/HCC) Generalized anxiety disorder documented in this encounter [facility]* Diagnosis Annual physical exam- Primary Routine general medical examination at a health care facility Major depressive disorder, recurrent episode, mild (HCC) (CMS/HCC) Major depressive disorder, recurrent episode, mild JAYJAY (generalized anxiety disorder) (CMS/HCC) Generalized anxiety disorder Morbid obesity due to [...] Major depressive disorder, recurrent episode, mild (HCC) ([facility]/HCC) Major depressive disorder, recurrent episode, mild JAYJAY (generalized anxiety disorder) ([facility]/HCC) Generalized anxiety disorder Mild intermittent asthma without complication ([facility]) Class 3 severe obesity due to excess calories with serious comorbidity and body mass index (BMI) of 50.0 to 59.9 in adult ([facility]) documented in this encounter [facility]* Diagnosis Annual physical exam- Primary Routine general medical examination at a health care facility Major depressive disorder, recurrent episode, mild (HCC) ([facility]/HCC) Major depressive disorder, recurrent episode, mild JAYJAY (generalized anxiety disorder) ([facility]) Generalized anxiety disorder Morbid obesity due to excess calories ([facility]) documented in this encounter [facility]* Diagnosis Type 2 diabetes mellitus with hyperglycemia, without long-term current use of insulin ([facility])- Primary documented in this encounter [facility]* Diagnosis Annual physical exam- Primary Routine general medical examination at a health care facility Major depressive disorder, recurrent episode, mild (HCC) ([facility]/HCC) Major depressive disorder, recurrent episode, mild JAYJAY (generalized anxiety disorder) ([facility]) Generalized anxiety disorder Morbid obesity due to excess calories ([facility]) Type 2 diabetes mellitus with hyperglycemia, without long-term current use of insulin ([facility])- Primary Major depressive disorder, recurrent episode, mild (HCC) ([facility]/HCC) Major depressive disorder, recurrent episode, mild JAYJAY (generalized anxiety disorder) ([facility]) Generalized anxiety disorder Type 2 diabetes mellitus with hyperglycemia, without long-term current use of insulin ([facility])- Primary Major depressive disorder, recurrent episode, mild (HCC) ([facility]/HCC) Major depressive disorder, recurrent episode, mild JAYJAY (generalized anxiety disorder) ([facility]/HCC) Generalized anxiety disorder Mild intermittent asthma without complication ([facility]) Class 3 severe obesity due to excess calories with serious comorbidity and body mass index (BMI) of 50.0 to 59.9 in adult ([facility]) Type 2 diabetes mellitus with hyperglycemia, without long-term current use of insulin ([facility]) documented in this encounter [facility]* Diagnosis Annual physical exam- Primary Routine general medical examination at a health care facility Major depressive disorder, recurrent episode, mild (HCC) ([facility]) Major depressive disorder, recurrent episode, mild JAYJAY (generalized anxiety disorder) ([facility]/HCC) Generalized anxiety disorder Morbid obesity due to excess calories ([facility]) Type 2 diabetes mellitus with hyperglycemia, without long-term current use of insulin ([facility])- Primary Major depressive disorder, recurrent episode, mild (HCC) ([facility]/HCC) Major depressive disorder, recurrent episode, mild JAYJAY (generalized anxiety disorder) ([facility]/HCC) Generalized anxiety disorder Type 2 diabetes mellitus with hyperglycemia, without long-term current use of insulin ([facility])- Primary Major depressive disorder, recurrent episode, mild (HCC) ([facility]/HCC) Major depressive disorder, recurrent episode, mild JAYJAY (generalized anxiety disorder) ([facility]) Generalized anxiety disorder Mild intermittent asthma without complication ([facility]) Class 3 severe obesity due to excess calories with serious comorbidity and body mass index (BMI) of 50.0 to 59.9 in adult ([facility]) Type 2 diabetes mellitus with hyperglycemia, without long-term current use of insulin ([facility])- Primary Major depressive disorder, recurrent episode, mild (HCC) ([facility]) Major depressive disorder, recurrent episode, mild JAYJAY (generalized anxiety disorder) ([facility]) Generalized anxiety disorder Mild intermittent asthma without complication ([facility]) Class 3 severe obesity due to excess calories with serious comorbidity and body mass index (BMI) of 50.0 to 59.9 in adult ([facility]) documented in this encounter [facility]* Diagnosis Annual physical exam- Primary Routine general medical examination at a health care facility Major depressive disorder, recurrent episode, mild (HCC) ([facility]) Major depressive disorder, recurrent episode, mild JAYJAY (generalized anxiety disorder) ([facility]) Generalized anxiety disorder Morbid obesity due to excess calories ([facility]) Type 2 diabetes mellitus with hyperglycemia, without long-term current use of insulin ([facility])- Primary Major depressive disorder, recurrent episode, mild (HCC) ([facility]) Major depressive disorder, recurrent episode, mild JAYJAY (generalized anxiety disorder) ([facility]) Generalized anxiety disorder Type 2 diabetes mellitus with hyperglycemia, without long-term current use of insulin ([facility])- Primary Major depressive disorder, recurrent episode, mild (HCC) ([facility]) Major depressive disorder, recurrent episode, mild JAYJAY (generalized anxiety disorder) ([facility]/HCC) Generalized anxiety disorder Mild intermittent asthma without complication (CMS/HCC) Class 3 severe obesity due to excess calories with serious comorbidity and body mass index (BMI) of 50.0 to 59.9 in adult (CMS/HCC) Type 2 diabetes mellitus with hyperglycemia, [...] of 50.0 to 59.9 in adult (CMS/HCC) Major depressive disorder, recurrent episode, mild (HCC) (CMS/HCC)- Primary Major depressive disorder, recurrent episode, mild documented in [facility] encounter [facility]* Diagnosis Annual physical exam- Primary Routine general medical examination at a health care facility Major depressive disorder, recurrent episode, mild (HCC) (CMS/HCC) Major depressive disorder, recurrent episode, mild JAYJAY (generalized anxiety disorder) ([facility]) Generalized anxiety disorder Morbid obesity due to [...] recurrent episode, mild JAYJAY (generalized anxiety disorder) ([facility]/HCC) Generalized anxiety disorder Mild intermittent asthma without [...] 59.9 in adult documented in this encounter [facility]* Diagnosis Annual physical exam- Primary Routine general medical examination at a health care facility Major depressive disorder, recurrent episode, mild (HCC) (CMS/HCC) Major depressive disorder, recurrent episode, mild JAYJAY (generalized anxiety disorder) (CMS/HCC) Generalized anxiety disorder Morbid obesity due to [...] (BMI) of 50.0 to 59.9 in adult Class 3 severe obesity due to excess calories with serious comorbidity and body mass index (BMI) of 50.0 to 59.9 in adult documented in this encounter [facility]* Diagnosis Annual physical exam- Primary Routine general medical examination at a health care facility Major depressive disorder, recurrent episode, mild Major depressive disorder, recurrent episode, mild JAYJAY (generalized anxiety disorder) Generalized anxiety disorder Morbid obesity due to excess calories ([facility]) Type 2 diabetes mellitus with hyperglycemia, without long-term current use of insulin ([facility])- Primary Major depressive disorder, recurrent episode, mild Major depressive disorder, recurrent episode, mild JAYJAY (generalized anxiety disorder) Generalized anxiety disorder Type 2 diabetes mellitus with hyperglycemia, without long-term current use of insulin ([facility])- Primary Major depressive disorder, recurrent episode, mild Major depressive disorder, recurrent episode, mild JAYJAY (generalized anxiety disorder) Generalized anxiety disorder Mild intermittent asthma without complication (HCC) Class 3 severe obesity due to excess calories with serious comorbidity and body mass index (BMI) of 50.0 to 59.9 in adult ([facility] Type 2 diabetes mellitus with hyperglycemia, without long-term current use of insulin ([facility])- Primary Major depressive disorder, recurrent episode, mild Major depressive disorder, recurrent episode, mild JAYJAY (generalized anxiety disorder) Generalized anxiety disorder Mild intermittent asthma without complication (HCC) Class 3 severe obesity due to excess calories with serious comorbidity and body mass index (BMI) of 50.0 to 59.9 in adult ([facility]) Type 2 diabetes mellitus with hyperglycemia, without long-term current use of insulin ([facility])- Primary Major depressive disorder, recurrent episode, mild Major depressive disorder, recurrent episode, mild JAYJAY (generalized anxiety disorder) Generalized anxiety disorder Mild intermittent asthma without complication (HCC) Class 3 severe obesity due to excess calories with serious comorbidity and body mass index (BMI) of 50.0 to 59.9 in adult ([facility]) Class 3 severe obesity due to excess calories with serious comorbidity and body mass index (BMI) of 50.0 to 59.9 in adult ([facility]) documented in this encounter [facility]* Diagnosis Annual physical exam- Primary Routine general medical examination at a health care facility Major depressive disorder, recurrent episode, mild Major depressive disorder, recurrent episode, mild JAYJAY (generalized anxiety disorder) Generalized anxiety disorder Morbid obesity due to excess calories ([facility]) Type 2 diabetes mellitus with hyperglycemia, without long-term current use of insulin ([facility])- Primary Major depressive disorder, recurrent episode, mild Major depressive disorder, recurrent episode, mild JAYJAY (generalized anxiety disorder) Generalized anxiety disorder Type 2 diabetes mellitus with hyperglycemia, without long-term current use of insulin ([facility])- Primary Major depressive disorder, recurrent episode, mild Major depressive disorder, recurrent episode, mild JAYJAY (generalized anxiety disorder) Generalized anxiety disorder Mild intermittent asthma without complication (HCC) Class 3 severe obesity due to excess calories with serious comorbidity and body mass index (BMI) of 50.0 to 59.9 in adult ([facility]) Type 2 diabetes mellitus with hyperglycemia, without long-term current use of insulin ([facility])- Primary Major depressive disorder, recurrent episode, mild Major depressive disorder, recurrent episode, mild JAYJAY (generalized anxiety disorder) Generalized anxiety disorder Mild intermittent asthma without complication (HCC) Class 3 severe obesity due to excess calories with serious comorbidity and body mass index (BMI) of 50.0 to 59.9 in adult ([facility]) Type 2 diabetes mellitus with hyperglycemia, without long-term current use of insulin ([facility])- Primary Major depressive disorder, recurrent episode, mild Major depressive disorder, recurrent episode, mild JAYJAY (generalized anxiety disorder) Generalized anxiety disorder Mild intermittent asthma without complication (HCC) Class 3 severe obesity due to excess calories with serious comorbidity and body mass index (BMI) of 50.0 to 59.9 in adult ([facility]) Type 2 diabetes mellitus with hyperglycemia, without long-term current use of insulin ([facility])- Primary Major depressive disorder, recurrent episode, mild Major depressive disorder, recurrent episode, mild JAYJAY (generalized anxiety disorder) Generalized anxiety disorder Mild intermittent asthma without complication (HCC) Class 3 severe obesity due to excess calories with serious comorbidity and body mass index (BMI) of 50.0 to 59.9 in adult ([facility]) documented in this encounter [facility]* Diagnosis Annual physical exam- Primary Routine general medical examination at a health care facility Major depressive disorder, recurrent episode, mild Major depressive disorder, recurrent episode, mild JAYJAY (generalized anxiety disorder) Generalized anxiety disorder Morbid obesity due to excess calories ([facility]) Type 2 diabetes mellitus with hyperglycemia, without long-term current use of insulin ([facility])- Primary Major depressive disorder, recurrent episode, mild Major depressive disorder, recurrent episode, mild JAYJAY (generalized anxiety disorder) Generalized anxiety disorder Type 2 diabetes mellitus with hyperglycemia, without long-term current use of insulin ([facility])- Primary Major depressive disorder, recurrent episode, mild Major depressive disorder, recurrent episode, mild JAYJAY (generalized anxiety disorder) Generalized anxiety disorder Mild intermittent asthma without complication (HCC) Class 3 severe obesity due to excess calories with serious comorbidity and body mass index (BMI) of 50.0 to 59.9 in adult ([facility]) Type 2 diabetes mellitus with hyperglycemia, without long-term current use of insulin ([facility])- Primary Major depressive disorder, recurrent episode, mild Major depressive disorder, recurrent episode, mild JAYJAY (generalized anxiety disorder) Generalized anxiety disorder Mild intermittent asthma without complication (HCC) Class 3 severe obesity due to excess calories with serious comorbidity and body mass index (BMI) of 50.0 to 59.9 in adult ([facility]) Type 2 diabetes mellitus with hyperglycemia, without long-term current use of insulin ([facility])- Primary Major depressive disorder, recurrent episode, mild Major depressive disorder, recurrent episode, mild JAYJAY (generalized anxiety disorder) Generalized anxiety disorder Mild intermittent asthma without complication (HCC) Class 3 severe obesity due to excess calories with serious comorbidity and body mass index (BMI) of 50.0 to 59.9 in adult ([facility]) Type 2 diabetes mellitus with hyperglycemia, without long-term current use of insulin ([facility])- Primary Major depressive disorder, recurrent episode, mild Major depressive disorder, recurrent episode, mild JAYJAY (generalized anxiety disorder) Generalized anxiety disorder Mild intermittent asthma without complication (HCC) Class 3 severe obesity due to excess calories with serious comorbidity and body mass index (BMI) of 50.0 to 59.9 in adult ([facility]) Class 3 severe obesity due to excess calories with serious comorbidity and body mass index (BMI) of 50.0 to 59.9 in adult ([facility]) documented in this encounter [facility] HealthcareEvaluation noteNo assessment information availableMiddletown Hospital Work Phone: History general Narrative - Reported* Type Description Date Medical History ashma Surgical History pnuemonia Hospitalization History see above [facility] [employer] Other Hospital course Narrative No data available for this section [facility] [place] [facility] Discharge instructions No data available for this section [facility] Progress note No data available for this section [facility] [place] Reason for referral (narrative)No reason for referral information availableMiddletown Hospital Work Phone: Summary Purpose Family History No Family History [...] FoundNo Family History Records Found Advance Directives Advance Directive Response Recorded Date/ Time Advance Directives No February 24, 2025 4:25pm Chief Complaint and Reason for Visit Chief Complaint Admit Date Established Patient March 11, 2025 10:23am Additional Source Comments (unrecognized sect ion and [...] and content) DATE CREATED AUTHOR 07/08/2018 [facility] DATE CREATED AUTHOR AUTHOR'S ORGANIZ ATION 11/11/2022 [facility] DATE CREATED AUTHOR AUTHOR'S ORGANIZ ATION 03/16/2024 [facility] DATE CREATED AUTHOR AUTHOR'S ORGANIZ ATION 04/13/2024 [facility] DATE CREATED AUTHOR AUTHOR'S ORGANIZ ATION 04/16/2024 [facility] DATE CREATED AUTHOR AUTHOR'S ORGANIZ ATION 06/29/2024 [facility] DATE CREATED AUTHOR AUTHOR'S ORGANIZ ATION 06/30/2024 [facility] DATE CREATED AUTHOR AUTHOR'S ORGANIZ ATION 01/09/2025 [facility] EPIC REASON FOR VISIT (unrecogniz ed section and content) Reason Comments Follow-up 1 m Reason Comments Follow-up 2 M Reason Comments Follow-up Mental health Reason Onset Date Comments Med Refill 09/10/2024 Reason Comments Follow-up 3m f/u Reason Comments Med Refill Reason Comments Follow-up 1m Reason Onset Date Comments Med Refill 02/06/2025 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 [employer] Relationship Specialty Start Date End Date Rashid Mckeon MD [address] [place] [phone] PCP - General Family Medicine 03/13/24 Warehouse Processor Relationship Specialty Start Date End Date Rashid Mckeon MD [address] [place] [phone] PCP - General Family Medicine 03/13/24 Warehouse Processor Relationship Specialty Start Date End Date Rashid Mckeon MD [address] [place] [phone] PCP - General Family Medicine 03/13/24 Warehouse Processor Relationship Specialty Start Date End Date Rashid Mckeon MD [address] [place] [phone] PCP - General Family Medicine 03/13/24 Warehouse Processor Relationship Specialty Start Date End Date Rashid Mckeon MD [address] [place] [id number] PCP - General Family Medicine 03/13/24 Warehouse Processor Relationship Specialty Start Date End Date Rashid Mckeon MD [address] [place] [phone] PCP - General Family Medicine 03/13/24 Warehouse Processor Relationship Specialty Start Date End Date Rashid Mckeon MD [address] [place] [phone] PCP - General Family Medicine 03/13/24 Warehouse Processor Relationship Specialty Start Date End Date Rashid Mckeon MD [address] [place] [phone] PCP - General Family Medicine 03/13/24 Warehouse Processor Relationship Specialty Start Date End Date Rashid Mckeon MD [address] [place] [phone] PCP - General Family Medicine 03/13/24 Warehouse Processor Relationship Specialty Start Date End Date Rashid Mckeon MD [address] [place] [phone] PCP - General Family Medicine 03/13/24 Warehouse Processor Relationship Specialty Start Date End Date Rashid Mckeon MD [address] [place] [phone] PCP - General Family Medicine 03/13/24 Warehouse Processor Relationship Specialty Start Date End Date Rashid Mckeon MD [address] [place] [address] PCP - General Family Medicine 03/13/24 Warehouse Processor Relationship Specialty Start Date End Date Rashid Mckeon MD [address] [place] [address] PCP - General Family Medicine 03/13/24 Warehouse Processor Relationship Specialty Start Date End Date Rashid Mckeon MD [address] [place] [phone] PCP - General Family Medicine 03/13/24 Warehouse Processor Relationship Specialty Start Date End Date Rashid Mckeon MD [address] [place] [phone] PCP - General Family Medicine 03/13/24 Warehouse Processor Relationship Specialty Start Date End Date Rashid Mckeon MD [address] [place] [phone] PCP - General Family Medicine 03/13/24 Warehouse Processor Relationship Specialty Start Date End Date Rashid Mckeon MD [address] [place] [address] PCP - General Family Medicine 03/13/24 Warehouse Processor Relationship Specialty Start Date End Date Rashid Mckeon MD [address] [place] [phone] PCP - General Family Medicine 03/13/24 Warehouse Processor Relationship Specialty Start Date End Date Rashid Mckeon MD [address] [place] [phone] PCP - General Family Medicine 03/13/24 Team Status: Active Member Role Status Dates PHYSICIAN NO FAMILY Primary Care Provider Active Team Status: Inactive Member Role Status Dates PHYSICIAN NO FAMILY Primary Care Provider Active Start: March 11, 2025 End: March 11, 2025 Rashid Mckeon MD Attending Provider Active Star t: March 11, 2025 End: March 11, 2025 Goals (unrecognized section and content) Goals may be documented in a n alternate section FOR RECORDS PERTAINING TO PATIENTS WHO ARE [...] BE BASED ON THE PRIMARY CLINICAL RECORDS. [facility] provides no warranty or guarantee of the accuracy or completeness of information in this document.
== END 2025-03-12 15:01 | disposition home or self-care (01) ==
PROVIDERS: PCP Family Medicine; Visit Provider Family Medicine
DX: Z00.00 Encounter for general adult medical examination without abnormal findings (principal); E11.65 Type 2 diabetes mellitus with hyperglycemia
CPT/HCPCS: 36415; 80053; 80061; 83036; 84443; 85025